=== PATIENT | male | born 1950 | race African-American/Black ===

== ENCOUNTER 2016-11-24 07:30 | Emergency (ER) | payer MEDICARE, OTHER ==
[~2016-11-24] VITALS: Ht 165.1 cm; Wt 75.0 kg
[~2016-11-24 07:30] MED LIST: ASPI81TA11 PO; CARV12.5 PO; DENO60P SQ; DILT31TA PO; DRIS50002 PO; ELVI1TAB3 PO; EPIN1INJ21 IV PUSH; EPIN1INJ21 SQ; FENO145T2 PO; FOLI1TAB4 PO; PROT40TA PO; REGL5TAB PO; RIFA150C2 PO; SEVEL800 PO; SOLU250I IV PUSH; VALA1POW PO; VANC10IN IV; XIFA550T4 PO
[2016-11-24 07:44] VITALS: BP 165/82; PULSE 67; RESP 16; TEMP 98.2; O2SAT 97
[2016-11-24] MEDS ORDERED: SODIUM CHLORIDE 0.9% FLUSH 5 ML FLUSH IVF PRN (10:00)
[2016-11-24] MEDS ORDERED: VALT1TAB PO (10:06)
[2016-11-24 10:29] VITALS: BP 149/82; PULSE 58; RESP 18; O2SAT 100
[2016-11-24 10:30] VITALS: BP 145/84
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
--- NOTE | 2016-11-24 10:55 | RADRPT ---
EXAM DATE/TIME: 11/24/2016 09:51 [facility] COMPARISON: CHEST SINGLE AP, September 15, 2016, 18:07. INDICATIONS: Chest pains. MEDICAL HISTORY: Renal insufficiency. SURGICAL HISTORY: None. ENCOUNTER: Initial ACUITY: 3 days PAIN SCORE: 1/10 LOCATION: Bilateral chest FINDINGS: Dialysis catheter is in good position. Heart is enlarged. Pulmonary vascularity is normal. No alve olar consolidation, pleural effusion or pneumothorax. CONCLUSION: 1. Dialysis catheter in good position. 2. Compensated cardiomegaly. Tera Beaulieu MD FACR on November 24, 2016 at 10:50 Board Certified Radiologist. This report was verified electronically.
--- NOTE | 2016-11-24 17:55 | EKG ---
Date Performed: 11/24/2016 Time Performed: 10:22:42 PTAGE: 65 years EKG: ATRIAL FLUTTER/TACHYCARDIA WITH SLOW VENTRICULAR RESPONSE Nonspecific ST-T wave changes ABN ORMAL ECG NO SIGNIFICANT CHANGE FROM PRIOR ELECTROCARDIOGRAM. PREVIOUS TRACING : 09/15/2016 22.45 DOCTOR: Neftaly Miranda Interpretating Date/Time 11/24/2016 17:54:19
[2016-12-06] MEDS ORDERED: CARD360C PO (09:24)
[2016-12-07] MEDS ORDERED: TYLETAB34 PO (07:21)
[2017-01-25] MEDS ORDERED: CORE25TA PO (12:00)
[2017-01-25] MEDS ORDERED: DOCU250C PO (12:09)
== END 2016-11-24 11:28 | disposition home or self-care (01) ==
LOC: NEPB 07:30
DX: T82.590A Other mechanical complication of surgically created arteriovenous fistula, initial encounter (principal); R94.31 Abnormal electrocardiogram [ECG] [EKG]; N18.6 End stage renal disease; I12.0 Hypertensive chronic kidney disease with stage 5 chronic kidney disease or end stage renal disease; E11.9 Type 2 diabetes mellitus without complications; E78.00 Pure hypercholesterolemia, unspecified; H91.93 Unspecified hearing loss, bilateral; Z99.2 Dependence on renal dialysis; Z21 Asymptomatic human immunodeficiency virus [HIV] infection status; Z87.39 Personal history of other diseases of the musculoskeletal system and connective tissue; Z87.09 Personal history of other diseases of the respiratory system; Z86.79 Personal history of other diseases of the circulatory system; Z87.19 Personal history of other diseases of the digestive system; Z86.19 Personal history of other infectious and parasitic diseases; Z86.69 Personal history of other diseases of the nervous system and sense organs
CPT/HCPCS: 71010; 93005

== ENCOUNTER → 2016-12-07 | Day surgery (SDC) | payer MEDICARE, OTHER ==
[~2016-12-07] VITALS: Ht 165.1 cm; Wt 73.3 kg
[~2016-12-07] MED LIST changes: +*RESP: ALBUTEROL 2.5 MG/3 ML NEB (PRN) PERIprocedural Use ONLY NEB ONE; +ACET-534 PO; +BUPIVACAINE/EPINEPHRINE 0.5% PF 30 ML VIAL ONE; +CARD360C PO; +CORE25TA PO; -DILT31TA PO; +DOCU100C PO; +DOCU250C PO; -EPIN1INJ21 IV PUSH; +ERGO1CAP30 PO; +FOLI1TAB6 PO; +HEPARIN SODIUM - SQ 10,000 UNITS/ML VIAL ONE; +Hemodialysis Vas Acc Cath PRN Heparin 1000 unit/ml Flush IVF; +Hemodialysis Vas Access Cath PRN NS Lock Flush IVF; +INSULIN HUMAN REGULAR 1,000 UNITS/10 ML VIAL SQ PRN; +KETAMINE HCL 500 MG/5 ML VIAL ONE; +LACTATED RINGER'S 1000 ML IV SCH; +METOPROLOL TARTRATE 25 MG TAB PO PRN; +MIDAZOLAM HCL 2 MG/2 ML VIAL ONE; +PROPOFOL 200 MG/20 ML AMP IV ONE; +REST15CA PO; -RIFA150C2 PO; +SODIUM CHLOR 0.9% 250 ML INJ 250 ML IV ONE; +SODIUM CHLORID 0.9% 500 ML IV SCH; +TYLETAB34 PO; -VALA1POW PO; +VALT1TAB PO; +VANCOMYCIN HCL 1000 MG VIAL ONE; +ceFAZolin 1,000 MG/NS 100 ML IV SCH; +fentaNYL CITRATE 250 MCG/5 ML AMP ONE
[2016-12-07 07:00] VITALS: BP 164/83; PULSE 57; RESP 22; TEMP 97.6; O2SAT 100
[2016-12-07 07:09] LABS: AUTOMATED NEUTROPHIL # 2.2 TH/MM3 (1.8-7.7); BASOPHIL % 1.1 % (0.0-2.0); EOSINOPHIL % 0.5 % (0.0-4.0); HEMATOCRIT 34.5 % (39.0-51.0); HEMO FLAGS DIFF FINAL; LYMPH % 20.3 % (9.0-44.0); LYMPHOCYTE # 0.7 TH/MM3 (1.0-4.8); MEAN CELL VOLUME 109.7 FL (80.0-100.0); MEAN CORPUSCULAR HEMOGLOBIN 37.6 PG (27.0-34.0); MEAN CORPUSCULAR HGB CONC 34.3 % (32.0-36.0); MONO % 14.6 % (0.0-8.0); NEUT % 63.5 % (16.0-70.0); PLATELET COUNT 100 TH/MM3 (150-450); RED BLOOD COUNT 3.15 MIL/MM3 (4.50-5.90); RED CELL DISTRIBUTION WIDTH 15.8 % (11.6-17.2); WHITE BLOOD COUNT 3.5 TH/MM3 (4.0-11.0)
[2016-12-07 07:48] LABS: BICARBONATE 23.1 MEQ/L (21.0-32.0); POTASSIUM 5.5 MEQ/L (3.5-5.1)
[2016-12-07 11:10] VITALS: BP 149/76; PULSE 55; RESP 17; TEMP 97.8; O2SAT 98
--- NOTE | 2016-12-08 06:58 | MP ---
cc: NIKKI MALIK M.D., JAMES DATE OF SURGERY December 07, 2016 PREOPERATIVE DIAGNOSIS Infected, residual segment of the PTFE graft left upper extremity - status post removal of infected A-V graft in September 2016. POSTOPERATIVE DIAGNOSIS Infected, residual segment of the PTFE graft left upper extremity - status post removal of infected A-V graft in September 2016. OPERATIVE PROCEDURE Removal of residual infected segment of PTFE graft. SURGEON Endy Blackburn MD DOPE POURER AVERY Harrison ANESTHESIA Local MAC. DESCRIPTION OF THE OPERATIVE PROCEDURE With the patient in the supine position and under IV sedation, the left arm was prepped with Betadine and draped in a sterile fashion. One gram of Ancef and 1 gram of vancomycin were administered intravenously. Following a protocol time-out, the skin and subcutaneous tissue surrounding the brachial artery to residual segment PTFE graft anastomosis infiltrated with 0.5% Marcaine with epinephrine. The old scar overlying the brachial artery to PTFE graft anastomosis was re-incised. The scar tissue was extremely dense, but the residual, infected segment of PTFE graft was gradually mobilized to the brachial artery anastomosis. The PTFE graft was excised leaving a 1-mm portion of the graft anastomosed to the artery. This 1-mm portion was closed with continuous 5-0 Prolene. Strict hemostasis was assured. Cultures were obtained. The wound was liberally irrigated with saline. Normal perfusion within the left hand was reconfirmed by easily palpable radial pulse, biphasic Doppler flow. The incision was closed by reapproximating the fascia over the artery with interrupted 4-0 Monocryl. Subcutaneous tissue was reapproximated with interrupted 4-0 Monocryl and the skin with continuous subcuticular 5-0 Monocryl, reinforced with Steri-Strips and covered with sterile gauze. Instrument, needle and sponge count correct x 2. No operative complications. The patient returned to the recovery room in stable condition having tolerated the procedure well. Stef Blackburn MD JTS/SSB /5:03 PM /6:45 AM
== END | disposition home or self-care (01) ==
LOC: HSDC 06:09
PROVIDERS: ATTEND Surgery Vascular Surgery
DX: T82.7XXA Infection and inflammatory reaction due to other cardiac and vascular devices, implants and grafts, initial encounter (principal); I12.0 Hypertensive chronic kidney disease with stage 5 chronic kidney disease or end stage renal disease; N18.6 End stage renal disease; J45.909 Unspecified asthma, uncomplicated
CPT/HCPCS: 01840; 35903; 80048; 85025; 87015; 87070; 87102; 87116; 87205; 87206; 94664; J0690; J1644; J2250; J3010; J3370; J7050; J7613

== ENCOUNTER → 2017-01-25 | Day surgery (SDC) | payer MEDICARE, OTHER ==
[~2017-01-25] MED LIST changes: -*RESP: ALBUTEROL 2.5 MG/3 ML NEB (PRN) PERIprocedural Use ONLY NEB ONE; +BUPIVACAINE/EPINEPHRINE 0.5% PF 30 ML VIAL INFIL ONE; -BUPIVACAINE/EPINEPHRINE 0.5% PF 30 ML VIAL ONE; +CHLORHEXIDINE GLUCONATE 2 % 1 PACK (2 CLOTHS) TOPICAL PRN; +DOPamine INJ PREMIX 500 ML ONE; +Hemodialysis Vas Acc Cath PRN Heparin 1000 unit/ml Flush IV FLUSH; -Hemodialysis Vas Acc Cath PRN Heparin 1000 unit/ml Flush IVF; +Hemodialysis Vas Access Cath PRN NS Lock Flush IV FLUSH; -Hemodialysis Vas Access Cath PRN NS Lock Flush IVF; +LACTATED RINGER'S 1000 ML IV PRN; -LACTATED RINGER'S 1000 ML IV SCH; +POVIDONE IODINE 5% (ANTISEPSIS KIT) 4 APPLICATIONS EACH NARE PRN; -SODIUM CHLOR 0.9% 250 ML INJ 250 ML IV ONE; +SODIUM CHLORID 0.9% 500 ML IV PRN; -SODIUM CHLORID 0.9% 500 ML IV SCH; -VANCOMYCIN HCL 1000 MG VIAL ONE; +ePHEDrine/NS 25 MG/5 ML SYR IV ONE; -fentaNYL CITRATE 250 MCG/5 ML AMP ONE
[2017-01-25 12:00] VITALS: BP 150/75; PULSE 77; RESP 16; TEMP 97.4; O2SAT 100
[2017-01-25 12:20] LABS: AUTOMATED NEUTROPHIL # 2.4 TH/MM3 (1.8-7.7); BASOPHIL % 1.1 % (0.0-2.0); EOSINOPHIL % 0.4 % (0.0-4.0); HEMATOCRIT 31.3 % (39.0-51.0); HEMO FLAGS DIFF FINAL; LYMPH % 20.9 % (9.0-44.0); LYMPHOCYTE # 0.8 TH/MM3 (1.0-4.8); MEAN CELL VOLUME 109.4 FL (80.0-100.0); MEAN CORPUSCULAR HEMOGLOBIN 37.1 PG (27.0-34.0); MEAN CORPUSCULAR HGB CONC 33.9 % (32.0-36.0); MONO % 13.4 % (0.0-8.0); NEUT % 64.2 % (16.0-70.0); PLATELET COUNT 129 TH/MM3 (150-450); RED BLOOD COUNT 2.86 MIL/MM3 (4.50-5.90); WHITE BLOOD COUNT 3.7 TH/MM3 (4.0-11.0)
[2017-01-25 12:35] LABS: BICARBONATE 22.7 MEQ/L (21.0-32.0); POTASSIUM 5.7 MEQ/L (3.5-5.1)
[2017-01-25 16:30] VITALS: BP 152/85; PULSE 56; RESP 18; TEMP 98.2; O2SAT 100
--- NOTE | 2017-01-26 07:04 | MP ---
cc: NIKKI MALIK M.D., JAMES T. M.D. DATE OF SURGERY 01/25/2017 PREOPERATIVE DIAGNOSIS Chronic kidney disease - needs permanent hemodialysis access. POSTOPERATIVE DIAGNOSIS Chronic kidney disease - needs permanent hemodialysis access. OPERATIVE PROCEDURE Right brachial brachial AV graft placement. SURGEON Stef Blackburn MD DIGITAL COLOR PRESS OPERATOR AVERY Harrison ANESTHESIA Local MAC DESCRIPTION OF THE OPERATIVE PROCEDURE With the patient in the supine position and under IV sedation, the right arm was prepped with Betadine and draped in a sterile fashion. One gram of Ancef was administered intravenously and following a protocol time-out, the skin and subcutaneous tissue along the medial supra antecubital region infiltrated with 0.5% Marcaine with epinephrine. A curvilinear 3 cm incision was performed along the medial supra antecubital region. A careful search for the basilic vein revealed complete obliteration by sclerotic venous disease (despite preoperative venous mapping suggesting a 2.5 mm, patent vein, none was present). Thus, a decision was made to proceed with prosthetic graft placement. The brachial artery was circumferentially mobilized and encircled with double loop vessel loops. Skin and subcutaneous tissue immediately distal to the axilla was infiltrated with 0.5% Marcaine with epinephrine. A 3 cm incision was performed through which the brachial vein was circumferentially isolated. The vein was occluded proximally and distally with Yasargil clips. A vertical 2 cm venotomy was performed. The vein was flushed proximally with heparinized saline. A 6 mm CenterFlex graft was spatulated on end and anastomosed end-to-side to the venotomy with continuous 6-0 Prolene. The graft was tunneled along the medial aspect of the upper extremity in a crescent shaped fashion utilizing an IMPRA tunneling device. The brachial artery was occluded proximally and distally with Yasargil clips. A vertical 5-mm arteriotomy was performed along the anterolateral surface. The arterial lumen was flushed proximally and distally with heparinized saline. An end-to-side anastomosis was accomplished between the graft and arteriotomy with continuous 6-0 Prolene. The occluding Yasargil clips were then removed reestablishing pulsatile flow within the brachial artery as well as into the PTFE graft and brachial vein. Strict hemostasis was achieved. Normal perfusion within the right hand was confirmed by robust Doppler signal right radial artery and palmar arch. Both incisions were closed with continuous subcutaneous 4-0 Monocryl, continuous subcuticular 5-0 Monocryl. Reinforced with Steri-Strips and covered with sterile gauze. Instrument, needle, sponge count correct x2. No operative complications. The patient returned to the recovery room in stable condition having tolerated the procedure well. MD KISHA Gaines/ANAND /5:28 PM /6:47 AM
[2017-01-26 17:29] LABS: BLOOD GAS VENOUS BASE EXCESS -1.6 mmol/L (-2-2); BLOOD GAS VENOUS HCO3 25 mmol/L (22-26); BLOOD GAS VENOUS O2 CONTENT 12.3 Vol % (9.0-17.0); BLOOD GAS VENOUS O2 HGB SAT 88 % (70-76); BLOOD GAS VENOUS PCO2 64 mmHg (44-48); BLOOD GAS VENOUS PO2 71 mmHg (35-40); BLOOD GAS VENOUS pH 7.22 (7.360-7.400); CRITICAL VALUE YES; OXYGEN DEVICE VENTILATOR; TEMP CORR TO 98.6
[2017-01-26 17:30] LABS: DRAW SITE CL; FIO2 50 %; STAT YES; VENT SETTINGS SEE COMMENTS
== END | disposition home or self-care (01) ==
LOC: HSDC 10:49
PROVIDERS: ATTEND Surgery Vascular Surgery
DX: N18.6 End stage renal disease (principal); I12.0 Hypertensive chronic kidney disease with stage 5 chronic kidney disease or end stage renal disease; J44.9 Chronic obstructive pulmonary disease, unspecified; J45.909 Unspecified asthma, uncomplicated
CPT/HCPCS: 01844; 36830; 80048; 85025; C1768; J0690; J1644; J2250; J3010; 82805; J1265

== ENCOUNTER 2017-01-27 11:14 | Inpatient (IN) | payer MEDICARE, OTHER ==
[~2017-01-27 11:14] MED LIST changes: -ACET-534 PO; -BUPIVACAINE/EPINEPHRINE 0.5% PF 30 ML VIAL INFIL ONE; -CARV12.5 PO; -CHLORHEXIDINE GLUCONATE 2 % 1 PACK (2 CLOTHS) TOPICAL PRN; -DOCU100C PO; -DOPamine INJ PREMIX 500 ML ONE; -ERGO1CAP30 PO; -FOLI1TAB6 PO; -HEPARIN SODIUM - SQ 10,000 UNITS/ML VIAL ONE; -Hemodialysis Vas Acc Cath PRN Heparin 1000 unit/ml Flush IV FLUSH; -Hemodialysis Vas Access Cath PRN NS Lock Flush IV FLUSH; -INSULIN HUMAN REGULAR 1,000 UNITS/10 ML VIAL SQ PRN; -KETAMINE HCL 500 MG/5 ML VIAL ONE; -LACTATED RINGER'S 1000 ML IV PRN; -METOPROLOL TARTRATE 25 MG TAB PO PRN; -MIDAZOLAM HCL 2 MG/2 ML VIAL ONE; -POVIDONE IODINE 5% (ANTISEPSIS KIT) 4 APPLICATIONS EACH NARE PRN; -PROPOFOL 200 MG/20 ML AMP IV ONE; -REST15CA PO; -SODIUM CHLORID 0.9% 500 ML IV PRN; -ceFAZolin 1,000 MG/NS 100 ML IV SCH; -ePHEDrine/NS 25 MG/5 ML SYR IV ONE
[2017-01-27 11:16] VITALS: BP 123/76; PULSE 100; RESP 16; TEMP 98.5; O2SAT 95
[2017-01-27 11:29] VITALS: O2SAT 97
[2017-01-27] MEDS ORDERED: SODIUM CHLORIDE 0.9% FLUSH 10 ML FLUSH IVF PRN (11:30)
[2017-01-27] MEDS ORDERED: SODIUM CHLORID 0.9% 500 ML INJ 500 ML IV ONE (11:30)
[2017-01-27 11:42] LABS: AUTOMATED NEUTROPHIL # 3.7 TH/MM3 (1.8-7.7); BASOPHIL % 0.6 % (0.0-2.0); HEMATOCRIT 28.3 % (39.0-51.0); HEMO FLAGS DIFF FINAL; LYMPH % 13.3 % (9.0-44.0); LYMPHOCYTE # 0.7 TH/MM3 (1.0-4.8); MEAN CELL VOLUME 109.1 FL (80.0-100.0); MEAN CORPUSCULAR HEMOGLOBIN 37.3 PG (27.0-34.0); MEAN CORPUSCULAR HGB CONC 34.2 % (32.0-36.0); MONO % 10.1 % (0.0-8.0); PLATELET COUNT 125 TH/MM3 (150-450); RED BLOOD COUNT 2.59 MIL/MM3 (4.50-5.90); RED CELL DISTRIBUTION WIDTH 15.3 % (11.6-17.2); WHITE BLOOD COUNT 4.9 TH/MM3 (4.0-11.0)
[2017-01-27 11:53] LABS: INTERNATIONAL NORMALIZED RATIO 1.7 RATIO
--- NOTE | 2017-01-27 12:03 | RADRPT ---
EXAM DATE/TIME: 01/27/2017 11:50 [facility] COMPARISON: CT BRAIN W/O CONTRAST, September 08, 2016, 18:45. INDICATIONS : Altered mental status. RADIATION DOSE: 42.93 CTDIvol (mGy) MEDICAL HISTORY : Cardiovascular disease. Chronic obstructive pulmonary disease. HIV.Hepatitis C. SURGICAL HISTORY : AV shunt. ENCOUNTER: Initial ACUITY: 1 day PAIN SCALE: Non-responsive LOCATION: cranial TECHNIQUE: Multiple contiguous axial images were obtained of the head. Using automated exposure control and adj ustment of the mA and/or kV according to patient size, radiation dose was kept as low as reasonably a chievable to obtain optimal diagnostic quality images. FINDINGS: CEREBRUM: The ventricles are normal for age. No evidence of midline shift, mass lesion, hemorrhage or acute in farction. No extra-axial fluid collections are seen. POSTERIOR FOSSA: The cerebellum and brainstem are intact. The 4th ventricle is midline. The cerebellopontine angle i s unremarkable. EXTRACRANIAL: The visualized portion of the orbits is intact. SKULL: The calvaria is intact. No evidence of skull fracture. CONCLUSION: Normal examination. Cyrus Mcnulty MD on January 27, 2017 at 12:01 Board Certified Radiologist. This report was verified electronically.
[2017-01-27] MEDS ORDERED: SODIUM CHLOR 0.9% 1000 ML INJ 1,000 ML IV PRN ×3 (12:18)
[2017-01-27 12:27] LABS: BICARBONATE 18.8 MEQ/L (21.0-32.0); POTASSIUM 6.2 MEQ/L (3.5-5.1)
--- NOTE | 2017-01-27 12:27 | PD ---
HPI Chief Complaint: Neuro Symptoms/ Deficits Time Seen by Provider: 11:22 Travel History International Travel<30 days: No Contact w/Intl Traveler<30days: No Traveled to known affect area: No History of Present Illness HPI 66-year-old male came to the emergency room brought by his sister with history of sudden onset generalized weakness after a fall at 8:00 this morning. Sister is here who is giving the elaborate history. As per her patient woke up at 7: 30 and was at his baseline mental status and health. Normally he is slow when walking and talking. He has multiple medical issues including end-stage renal disease, hemodialysis and cardiac history. He is supposed to get his hemodialysis today. He was sitting and she was getting ready to make breakfast for him when she saw him fall backward on the floor. She went and helped to mop. But since then he was walking slow and talking slow. She thought that his right sided facial droop was more exaggerated than usual. She decided to drive him to the emergency room when it did not improve. Here the patient was awake and slowly answering questions. He is following commands. But I had to ask a single question multiple times in order to get an answer out of him. Denies any pain. Patient is in atrial fibrillation on the monitor. As per the sister this is a known A. fib and he is only on one baby aspirin 3 times a week as per his pearl digger. [facility] Past Medical History Narrative Medical List of his past medical, surgical, social and family history was reviewed from the nursing note. ADHD: No Arthritis: Yes (SPINAL ) Asthma: Yes Autoimmune Disease: Yes Blood Disorders: Yes (HIV) Anxiety: No Depression: No Heart Rhythm Problems: No Cancer: No Cardiovascular Problems: Yes High Cholesterol: Yes Chemotherapy: No Chest Pain: No Congestive Heart Failure: Yes COPD: Yes Cerebrovascular Accident: No Diabetes: Yes Patient Takes Glucophage: No Dialysis: Yes (,,) Diminished Hearing: Yes (BILATERAL) Endocrine: Yes Gastrointestinal Disorders: Yes (constipation) GERD: Yes Glaucoma: No Genitourinary: Yes (ESRD, DIALYSIS --TUE) Headaches: Yes Hepatitis: Yes (HEP C) Hiatal Hernia: No Hypertension: Yes Immune Disorder: Yes (HIV POSITIVE) Implanted Vascular Access Dvce: Yes Kidney Stones: No Musculoskeletal: Yes Neurologic: Yes (AMS AFTER DIALYSIS ) Psychiatric: No Respiratory: Yes (ASTHMA) Immunizations Current: Yes Migraines: No Myocardial Infarction: No Radiation Therapy: No Renal Failure: Yes (ESRD) Seizures: No Sickle Cell Disease: No Sleep Apnea: No Thyroid Disease: No Ulcer: No Past Surgical History Abdominal Surgery: No AICD: No Appendectomy: No Arteriovenous Shunt: Yes (LUE AV GRAFT) Body Medical Devices: LEFT ARM DIALYSIS FISTULA, L VAS CATH CHEST Cardiac Surgery: No Cholecystectomy: No Ear Surgery: No Endocrine Surgery: No Eye Surgery: No Genitourinary Surgery: No Gynecologic Surgery: No Insulin Pump: No Joint Replacement: No Neurologic Surgery: No Oral Surgery: No Pacemaker: No Thoracic Surgery: No Other Surgery: Yes (LUE AV GRAFT; X 6) Social History Alcohol Use: No Tobacco Use: No Substance Use: No Allergies-Medications (Allergen,Severity, Reaction): Coded Allergies: *MDRO Multi-Drug Resistant Organism (Unverified Adverse Reaction, Unknown , 01/25/17) MRSA (genital) - 2004 MRSA PCR screen positive - 12/29/15, 09/09/16 MRSA (blood-09/08/16) Comments List of his allergies reviewed from the nursing note. Reported Meds & Prescriptions Reported Meds & Active Scripts Active Renvela (Sevelamer Carbonate) 800 Mg Tab 1,600 Mg PO TID Xifaxan (Rifaximin) 550 Mg Tab 550 Mg PO BID Epinephrine Inj 1 Mg/Ml Inj 0.3 Mg SQ ONCE PRN Give with any signs of respiratory distress. Solu-Cortef Inj (Hydrocortisone Sodium Succinate) 250 Mg Inj 250 Mg IV PUSH ONCE PRN Give over 30-60 seconds. Vancomycin Inj (Vancomycin HCl) 10 Gm Inj 1,500 Mg IV WITH DIALYSIS 30 Days Reported Restoril (Temazepam) 15 Mg Cap 15 Mg PO HS PRN Fenofibrate 145 Mg Tab 145 Mg PO HS Aspirin EC (Aspirin) 81 Mg Tabdr 81 Mg PO MOWEFR @ HS Docusate Sodium 100 Mg Cap 100 Mg PO WEEKLY ON SUNDAYS Coreg (Carvedilol) 25 Mg Tab 25 Mg PO Q12HR Tylenol-Codeine #3 (Acetaminophen-Codeine) 300-30 mg Tab 1 Tab PO Q4H PRN Cardizem CD 24 HR (Diltiazem CD 24 HR) 360 Mg Caper 360 Mg PO DAILY Valtrex (Valacyclovir HCl) 1 Gm Tab 1 Gm PO DAILY Prolia Inj (Denosumab) 60 Mg/Ml Inj 60 Mg SQ Q180D Genvoya (Yxtfhvklxmgm-Orjsoslitu-Cpoxqrwcupkq-Tenofvir) [phone] Mg Tab 1 Tab PO DAILY Folate (Folic Acid) 1 Mg Tab 1 Mg PO DAILY Drisdol (Ergocalciferol) 50,000 Unit Cap 50,000 Units PO Q7D ON SUNDAYS Protonix (Pantoprazole Sodium) 40 Mg Tab 40 Mg PO DAILY Narrative Medication List of his home medications reviewed from the nursing note. Review of Systems Except as stated in HPI: all other systems reviewed are Neg Physical Exam Narrative GENERAL: Awake, no obvious distress, slow in answering questions SKIN: Focused skin assessment warm/dry. HEAD: Atraumatic. Normocephalic. EYES: Pupils equal and round. No scleral icterus. No injection or drainage. ENT: No nasal bleeding or discharge. Mucous membranes pink and moist. NECK: Trachea midline. No JVD. CARDIOVASCULAR: Regular rate and rhythm. No murmur appreciated. RESPIRATORY: No accessory muscle use. Clear to auscultation. Breath sounds equal bilaterally. GASTROINTESTINAL: Abdomen soft, non-tender, nondistended. Hepatic and splenic margins not palpable. MUSCULOSKELETAL: No obvious deformities. No clubbing. No cyanosis. No edema. NEUROLOGICAL: Awake and slow in answering questions. No obvious cranial nerve deficits. Bilateral upper extremity strength of 4 out of 5, bilateral lower extremity strength of 3 out of 5. Speech is somewhat dysarthric due to the absence of his teeth. PSYCHIATRIC: Appropriate mood and affect; insight and judgment normal. Data Data Last Documented VS Orders Electrocardiogram (01/27/17 11:) Prothrombin Time / Inr (Pt) (01/27/17 11:22) Complete Blood Count With Diff (01/27/17 11:22) Basic Metabolic Panel (Bmp) (01/27/17 11:22) Troponin I (01/27/17 11:22) Ct Brain W/O Iv Contrast(Rout) (01/27/17 11:22) Chest, Single Ap (01/27/17 11:22) Ecg Monitoring (01/27/17 11:22) Iv Access Insert/Monitor (01/27/17 11:22) Oximetry (01/27/17 11:22) Sodium Chloride 0.9% Flush (Ns Flush) (01/27/17 11:30) Sodium Chlorid 0.9% 500 Ml Inj (Ns 500 M (01/27/17 11:30) Mri Brain W/O Contrast (01/27/17 11:44) ^ Blood Flow Rate (01/27/17 12:18) ^ Dialysate Flow Rate (01/27/17 12:18) ^ Dialyzer (01/27/17 12:18) ^ Concentrate (01/27/17 12:18) ^ Acid Concentrate (01/27/17 12:18) ^ Length Of Dialysis (01/27/17 12:18) ^ Frequency Of Dialysis (01/27/17 12:18) ^ Dialysis Obtain (01/27/17:18) ^ Needle Size (01/27/17:18) ^ Dialysis Schedule (01/27/17 12:18) Resp Oxygen Zia C Titrat 1-4 L (01/27/17 ) ^ Dialysis Weight (01/27/17 12:18) ^ Obtain As Needed (01/27/17 12:18) Sodium Chlor 0.9% 1000 Ml Inj (Ns 1000 M (01/27/17 12:18) Heparin Inj (Heparin Inj) (01/27/17 12:30) Sodium Chlor 0.9% 1000 Ml Inj (Ns 1000 M (01/27/17 12:18) Sodium Chlor 0.9% 1000 Ml Inj (Ns 1000 M (01/27/17 12:18) Mannitol Inj (Mannitol Inj) (01/27/17 12:30) Albumin 25% Inj (Albumin 25% Inj) (01/27/17 12:30) Sodium Chloride 0.9% Flush (Ns Flush) (01/27/17 12:30) Heparin Inj (Heparin Inj) (01/27/17 12:30) Gentamicin (Dialysis) Inj (Gentamicin (D (01/27/17 12:30) Ondansetron Inj (Zofran Inj) (01/27/17 12:30) Acetaminophen (Tylenol) (01/27/17 12:30) Diphenhydramine (Benadryl) (01/27/17 12:30) Nitroglycerin Sl (Nitrostat Sl) (01/27/17 12:30) Clonidine (Catapres) (01/27/17 12:30) Epoetin Erick Inj (Epogen Inj) (01/27/17 12:30) Gelatin 12 Mm/7 Mm Top (Gelfoam 12 Mm/7 (01/27/17 12:30) Apixaban (Eliquis) (01/27/17 13:15) Consult Neurology (01/27/17 ) Admit Order (Ed Use Only) (01/27/17 13:22) Labs MDM Medical Decision Making Medical Screen Exam Complete: Yes Emergency Medical Condition: Yes Medical Record Reviewed: Yes Interpretation(s) Twelve-lead EKG was reviewed by me. Atrial fibrillation with flutter, normal axis, heart rate of 80 bpm. Differential Diagnosis CVA, TIA, intracranial bleed, electrolyte abnormality Narrative Course 12:25 PM awaiting for the chemistry to be done and resulted. I discussed the case with Dr. Ortiz from neurology. Given the absence of any focal findings I did not call a stroke alert. However given the fact that patient has atrial fibrillation he wanted a stat MRI and if that was negative for bleed he wanted the patient to be started on a course. A CT scan of the head has been done. Awaiting for the MRI currently. I also spoke with Dr. Arboleda since he is covering for patient's peer support specialist. I let him know that the patient is here and will be admitted and if he could coordinate the hemodialysis. Plain CT of the head is back in its within normal limits. I tried calling MRI and I was told that they had just received the history and they will try to get him as soon as they can. 1:14 PM MRI and CAT scan both are negative for any hemorrhage. I have ordered the first dose of Eliquis. Awaiting for the hospitalist to call back so that I can admit this patient. He has been taken for dialysis since his potassium was 6.2. The dialysis nurse was here and she said that the patient hadn't had dialysis since last Tuesday. Procedures EKG Prior to Arrival: No Physician Communication Physician Communication Dr. Ortiz, Dr. Arboleda Diagnosis Primary Impression: TIA (transient ischemic attack) Qualified Code: G45.9 - Transient cerebral ischemia, unspecified type Additional Impressions: Hyperkalemia Atrial fibrillation Qualified Code: I48.2 - Chronic atrial fibrillation End stage renal disease Dependent on hemodialysis Admitting Information Admitting Physician Requests: Observation Shari Meeks MD Jan 27, 2017 12:27 Monocytes # (Auto) 0.5 TH/MM3 Eosinophils # (Auto) 0.0 TH/MM3 Basophils # (Auto) 0.0 TH/MM3 CBC Comment DIFF FINAL Differential Comment Prothrombin Time 19.0 SEC Prothromb Time International 1.7 RATIO Ratio Sodium Level 131 MEQ/L Potassium Level 6.2 MEQ/L Chloride Level 97 MEQ/L Carbon Dioxide Level 18.8 MEQ/L Anion Gap 15 MEQ/L Blood Urea Nitrogen 96 MG/DL Creatinine 13.33 MG/DL Estimat Glomerular Filtration 5 ML/MIN Rate Random Glucose 109 MG/DL Calcium Level 7.9 MG/DL Troponin I 0.05 NG/ML [facility] Medical Decision Making Medical Screen Exam Complete: Yes Emergency Medical Condition: Yes Medical Record Reviewed: Yes Interpretation(s) Twelve-lead EKG was reviewed by me. Atrial fibrillation with flutter, normal axis, heart rate of 80 bpm. Differential Diagnosis CVA, TIA, intracranial bleed, electrolyte abnormality Narrative Course 12:25 PM awaiting for the chemistry to be done and resulted. I discussed the case with Dr. Ortiz from neurology. Given the absence of any focal findings I did not call a stroke alert. However given the fact that patient has atrial fibrillation he wanted a stat MRI and if that was negative for bleed he wanted the patient to be started on a course. A CT scan of the head has been done. Awaiting for the MRI currently. I also spoke with Dr. Andi abbott since he is covering for patient's peer support specialist. I let him know that the patient is here and will be admitted and if he could coordinate the hemodialysis. Plain CT of the head is back in its within normal limits. I tried calling MRI and I was told that they had just received the history and they will try to get him as soon as they can. 1:14 PM MRI and CAT scan both are negative for any hemorrhage. I have ordered the first dose of Eliquis. Awaiting for the hospitalist to call back so that I can admit this patient. He has been taken for dialysis since his potassium was 6.2. The dialysis nurse was here and she said that the patient hadn't had dialysis since last Tuesday. Procedures EKG Prior to Arrival: No Physician Communication Physician Communication Dr. Ortiz, Dr. Arboleda Diagnosis Primary Impression: TIA (transient ischemic attack) Qualified Code: G45.9 - Transient cerebral ischemia, unspecified type Additional Impressions: Hyperkalemia Atrial fibrillation Qualified Code: I48.2 - Chronic atrial fibrillation End stage renal disease Dependent on hemodialysis Admitting Information Admitting Physician Requests: Shari Barraza MD Jan 27, 2017 12:27
[2017-01-27] MEDS ORDERED: NITROGLYCERIN 0.4 MG SL 25 TABS/BTL SL PRN (12:30)
[2017-01-27] MEDS ORDERED: MANNITOL 12.5 GM/50 ML VIAL IV PRN (12:30)
[2017-01-27] MEDS ORDERED: HEPARIN SODIUM - IV 10,000 UNITS/10 ML VIAL IVF PRN (12:30)
[2017-01-27] MEDS ORDERED: ONDANSETRON HCL 4 MG/2 ML VIAL IV PRN (12:30)
[2017-01-27] MEDS ORDERED: ALBUMIN HUMAN 25% 25 GM/100 ML BAGP IV PRN (12:30)
[2017-01-27] MEDS ORDERED: EPOETIN ALFA 10,000 UNITS/ML VIAL IV PRN (12:30)
[2017-01-27] MEDS ORDERED: HEPARIN SODIUM - IV 10,000 UNITS/10 ML VIAL PRN (12:30)
[2017-01-27] MEDS ORDERED: diphenhydrAMINE HCL 25 MG CAP PO PRN (12:30)
[2017-01-27] MEDS ORDERED: GENTAMICIN SULFATE (DIALYSIS USE ONLY) 20 MG/2 ML VIAL IV PRN (12:30)
[2017-01-27] MEDS ORDERED: SODIUM CHLORIDE 0.9% FLUSH 10 ML FLUSH IV FLUSH PRN ×2 (12:30→13:45)
[2017-01-27] MEDS ORDERED: GELATIN 12 MM/7 MM FOAM TOP PRN (12:30)
--- NOTE | 2017-01-27 13:03 | RADRPT ---
EXAM DATE/TIME: 01/27/2017 12:02 [facility] COMPARISON: CHEST SINGLE AP, November 24, 2016, 9:51. INDICATIONS : Syncope, increased confusion. MEDICAL HISTORY : Hypertension. Chronic obstructive pulmonary disease. Diabetes mellitus type II. Congestive heart failure. Asthma. SURGICAL HISTORY : Vas cath. ENCOUNTER: Initial ACUITY: 2 days PAIN SCORE: 0/10 LOCATION: Bilateral chest FINDINGS: A single AP supine portable view of the chest was obtained and again demonstrates the right-sided diamante ble lumen central venous line. The heart size is mildly prominent with no perihilar edema. There are no confluent infiltrates or effusions. The bony thorax is intact. There are multiple overlying electr ocardiogram leads. CONCLUSION: Mild cardiomegaly with no acute cardiopulmonary disease. Alden Elder MD on January 27, 2017 at 13:01 Board Certified Radiologist. This report was verified electronically.
--- NOTE | 2017-01-27 13:09 | RADRPT ---
EXAM DATE/TIME: 01/27/2017 12:36 [facility] COMPARISON: MRI BRAIN W/O CONTRAST, September 08, 2016, 21:42. INDICATIONS : CVA. Slurred speech and drooling. MEDICAL HISTORY : Diabetes mellitus type 2. Hypertension. Dialysis. SURGICAL HISTORY : Dialysis port. ENCOUNTER: Initial ACUITY: 1 day PAIN SCORE: Nonresponsive. LOCATION: Head. Known MRI PrecautionsSedation Utilized? No Anesthesia Present? MRI reaction? If YES expla in: TECHNIQUE: Multiplanar, multisequence MRI of the brain was performed without contrast. FINDINGS: CEREBRUM: The ventricles are normal for age. No evidence of midline shift, mass lesion, hemorrhage or acute in farction. No extraaxial fluid collections are seen. The pituitary gland and suprasellar cistern are normal in configuration. WHITE MATTER: On the flair weighted images there is increased signal again noted throughout the periventricular whi te matter. POSTERIOR FOSSA: The cerebellum and brainstem are intact. The 4th ventricle is midline. The cerebellopontine angle is unremarkable. The cerebellar tonsils are normal in position. DIFFUSION IMAGING: No focal areas of restricted diffusion are seen. No evidence of acute infarction. EXTRACRANIAL: The visualized portions of the orbits and paranasal sinuses are unremarkable. CONCLUSION: 1. No acute hemorrhage, infarction or mass effect. 2. Atrophy and chronic small vessel ischemic change again noted. Alden Elder MD on January 27, 2017 at 13:05 Board Certified Radiologist. This report was verified electronically.
[2017-01-27] MEDS ORDERED: APIXABAN 5 MG TABLET PO ONE (13:15)
[2017-01-27] MEDS ORDERED: NALOXONE HCL 0.4 MG/ML AMP IV PRN (13:45)
--- NOTE | 2017-01-27 14:50 | EKG ---
Date Performed: 01/27/2017 Time Performed: 11:28:12 PTAGE: 66 years EKG: ATRIAL FIB/FLUTTER NONSPECIFIC T-WAVE ABNORMALITY ABNORMAL ECG NO PREVIOUS TRACING DOCTOR: John Valdes Interpretating Date/Time 01/27/2017 14:49:33
--- NOTE | 2017-01-27 16:54 | PD.CONS ---
HPI Service Nephrology Consult Requested By Reason for Consult ESRD, hyperkalemia Primary Care Physician Tera Silva, DO History of Present Illness Mr. Barroso was admitted with altered mental status. He appears to have missed dialysis on Tuesday. He was hyperkalemic on presentation, and emergency dialysis was arranged, and I saw him during dialysis. Currently he is confused, disoriented, unable to provide me with history. He is in atrial fibrillation. I discussed with neurology. Patient has multiple medical problems including HIV, ESRD, Hypertension, recent AV graft infection, s/p resection. Review of Systems ROS Limitations: Clinical Condition Past Family Social History Allergies: Coded Allergies: *MDRO Multi-Drug Resistant Organism (Unverified Adverse Reaction, Unknown , 01/25/17) MRSA (genital) - 2004 MRSA PCR screen positive - 12/29/15, 09/09/16 MRSA (blood-09/08/16) Past Medical History HIV ESRD Hypertension Secondary hyperparathyroidism Anemia AV graft infection, s/p resection. Pneumonia Chronic constipation. Reported Medications Renvela (Sevelamer Carbonate) 800 Mg Tab 1,600 Mg PO TID Xifaxan (Rifaximin) 550 Mg Tab 550 Mg PO BID Fenofibrate 145 Mg Tab 145 Mg PO DAILY Aspirin EC (Aspirin) 81 Mg Tabdr 81 Mg PO MOWEFR@0900 Epinephrine Inj 1 Mg/Ml Inj 0.3 Mg SQ ONCE PRN Give with any signs of respiratory distress. Solu-Cortef Inj (Hydrocortisone Sodium Succinate) 250 Mg Inj 250 Mg IV PUSH ONCE PRN Give over 30-60 seconds. Vancomycin Inj (Vancomycin HCl) 10 Gm Inj 1,500 Mg IV WITH DIALYSIS 30 Days Reported Docusate Sodium 250 Mg Cap 250 Mg PO DAILY Coreg (Carvedilol) 25 Mg Tab 25 Mg PO BID Tylenol-Codeine #3 (Acetaminophen-Codeine) 300-30 mg Tab 1 Tab PO Q4H PRN Cardizem CD 24 HR (Diltiazem CD 24 HR) 360 Mg Caper 360 Mg PO DAILY Valtrex (Valacyclovir HCl) 1 Gm Tab 1 Gm PO BID Prolia Inj (Denosumab) 60 Mg/Ml Inj 60 Mg SQ Q180D Genvoya (Mpkwvgvdvvxf-Sxydkywcip-Qloqjduxuujj-Tenofvir) [phone] Mg Tab 1 Tab PO DAILY Folate (Folic Acid) 1 Mg Tab 1 Mg PO DAILY Drisdol (Ergocalciferol) 50,000 Unit Cap 50,000 Units PO Q7D Reglan (Metoclopramide HCl) 5 Mg Tab 5 Mg PO TIDAC Protonix (Pantoprazole Sodium) 40 Mg Tab 40 Mg PO DAILY Active Ordered Medications Current Medications Medications (Trade) Dose Ordered Sig/Michael Route Start Time Stop Time Status Last Admin Sodium Chloride 2 ml 2 ml UNSCH PRN IVF 01/27/17 11:30 (NS 1000 ml Inj) 1,000 ml @ 0 mls/hr Q0M PRN IV 01/27/17 12:18 Heparin Sodium (Porcine) 8000 units 8,000 units UNSCH PRN IVF 01/27/17 12:30 Sodium Chloride 1,000 ml @ 200 mls/hr Q5H PRN IV 01/27/17 12:18 (NS 1000 ml Inj) 1,000 ml @ 0 mls/hr Q0M PRN IV 01/27/17 12:18 (Mannitol Inj) 12.5 gm UNSCH PRN IV 01/27/17 12:30 (Albumin 25% Inj) 25 gm UNSCH PRN IV 01/27/17 12:30 (NS Flush) 5 ml UNSCH PRN IV FLUSH 01/27/17 12:30 (Heparin Inj) UNSCH PRN .XX 01/27/17 12:30 (Gentamicin (Dialysis) Inj) 20 mg UNSCH PRN IV 01/27/17 12:30 (Zofran Inj) 4 mg UNSCH PRN IV 01/27/17 12:30 (Tylenol) 650 mg UNSCH PRN PO 01/27/17 12:30 (Benadryl) 25 mg UNSCH PRN PO 01/27/17 12:30 (Nitrostat Sl) 0.4 mg UNSCH PRN SL 01/27/17 12:30 (Catapres) 0.1 mg UNSCH PRN PO 01/27/17 12:30 (Epogen Inj) 10,000 units UNSCH PRN IV 01/27/17 12:30 (Gelfoam 12 Mm/7 Mm Top) 1 foam UNSCH PRN TOP 01/27/17 12:30 (Narcan Inj) 0.4 mg UNSCH PRN IV 01/27/17 13:45 Family History reviewed, non contributory Social History no current tobacco, or ETOH Physical Exam Vital Signs Vital Signs Date Time Temp Pulse Resp B/P Pulse Ox O2 Delivery O2 Flow Rate FiO2 01/27/17 11:29 97 Room Air 01/27/17 11:20 90 18 99 Room Air 01/27/17 11:16 98.5 100 16 123/76 95 Physical Exam GENERAL: generalized muscle wasting, patient is poorly responsive. SKIN: Warm and dry. HEAD: Normocephalic. EYES: No scleral icterus. No injection or drainage. NECK: Supple, trachea midline. No JVD or lymphadenopathy. CARDIOVASCULAR: irregular tachycardia. RESPIRATORY: Breath sounds equal bilaterally. No accessory muscle use. GASTROINTESTINAL: Abdomen soft, non-tender, nondistended. MUSCULOSKELETAL: No cyanosis, or edema. BACK: Nontender without obvious deformity. No CVA tenderness. Laboratory Laboratory Tests Test 01/27/17 11:30 White Blood Count 4.9 Red Blood Count 2.59 Hemoglobin 9.7 Hematocrit 28.3 Mean Corpuscular Volume 109.1 Mean Corpuscular Hemoglobin 37.3 Mean Corpuscular Hemoglobin 34.2 Concent Red Cell Distribution Width 15.3 Platelet Count 125 Mean Platelet Volume 8.1 Neutrophils (%) (Auto) 76.0 Lymphocytes (%) (Auto) 13.3 Monocytes (%) (Auto) 10.1 Eosinophils (%) (Auto) 0.0 Basophils (%) (Auto) 0.6 Neutrophils # (Auto) 3.7 Lymphocytes # (Auto) 0.7 Monocytes # (Auto) 0.5 Eosinophils # (Auto) 0.0 Basophils # (Auto) 0.0 CBC Comment DIFF FINAL Differential Comment Prothrombin Time 19.0 Prothromb Time International 1.7 Ratio Sodium Level 131 Potassium Level 6.2 Chloride Level 97 Carbon Dioxide Level 18.8 Anion Gap 15 Blood Urea Nitrogen 96 Creatinine 13.33 Estimat Glomerular Filtration 5 Rate Random Glucose 109 Calcium Level 7.9 Troponin I 0.05 Result Diagram: 01/27/17 1130 01/27/17 1130 Assessment and Plan Problem List: (1) ESRD (end stage renal disease) Plan: he apparently missed dialysis treatment earlier this week, he appears to have volume overload, we are dialyzing him today, he is on 1k, BFR 350 ml/min, UF goal is 4 liters. Continue to monitor volume status and electrolytes. Avoid Gadolinium. (2) Hyperkalemia Plan: Dialysis. If NPO, consider placing him on D10 at 20 ml/hour. (3) HIV disease Plan: Continue anti retrovirals. (4) Anemia Plan: Epogen with dialysis. (5) Atrial fibrillation Plan: rate control measures. TIA being considered. Eliquis can be given if deemed necessary. Assessment and Plan Thanks for the consult. We will follow. Will discuss with dialysis unit regarding recent work on his AVF. Problem Qualifiers (1) Atrial fibrillation: Qualified Code: I48.2 - Chronic atrial fibrillation Tyson Arboleda MD Jan 27, 2017 16:54
[2017-01-27] MEDS ORDERED: DOCU100C PO (17:20)
[2017-01-27] MEDS ORDERED: ASPI81TA11 PO (17:22)
[2017-01-27] MEDS ORDERED: FENO145T2 PO (17:23)
[2017-01-27] MEDS ORDERED: REST15CA PO (17:24)
[2017-01-27 17:40] VITALS: BP 126/83; PULSE 113; RESP 20; TEMP 96.1; O2SAT 98
[2017-01-27] MEDS: SEVELAMER CARBONATE 800 MG TAB PO SCH (18:00)
[2017-01-27] MEDS ORDERED: PILL SPLITTER OTHER PRN (18:15)
--- NOTE | 2017-01-27 18:20 | MB ---
cc: ELIA LOPEZ DATE OF CONSULTATION 01/27/17 HISTORY OF PRESENT ILLNESS The patient is a 65-year-old man with a history of hypertension, diabetes, dialysis, confusion, fevers who I had seen back in December of 2015 with ejection fraction of 60-65%, sepsis, change in mental status, hepatitis C, HIV 23 years ago on retroviral therapy, drug abuse, hyperlipidemia, renal failure, COPD, AV fistula, low blood pressure in the past, had two episodes of unresponsive at that time. He gave a fair history then. Herpes PCR had been negative in the CSF. RPR had been negative as was VDRL in the past. B12 and thyroid were fine at that time, creatinine was 6.8. MRI just showed atrophy. It was unclear if he had atrial fibrillation at that time. Nevertheless, he came in to the emergency room today seen by Dr. Meeks, sudden onset of generalized weakness after a fall at eight this morning. Sister thought she saw a bit of a facial droop. He was talking and moving slower than usual. He fell backwards. She thought he had a right-sided facial droop. He was in atrial fibrillation on the monitor. Evidently, he had a known history of atrial fibrillation and takes an aspirin three times a week. MEDICATIONS At home 1. Renvela. 2. Rifaximin 3. Fenofibrate 81 three times a week 4. Some steroids as needed. 5. Vancomycin with dialysis. 6. Docusate 7. Coreg. 8. Tylenol with Codeine. 9. Cardizem. 10. Valtrex 11. ____ injections 12. 13. Folate 14. 15. Reglan. 16. Protonix PHYSICAL EXAMINATION VITAL SIGNS: 130 systolic, afebrile, 16, 123/76 90-56. NECK: There were no carotid bruits. HEART: Regular rhythm at this time. No murmur was noted. NEUROLOGIC: Pupils are equally. Visual denny are full. Face is symmetric. He has had normal strength in upper and lower extremities bilaterally. Toes are downgoing bilaterally. DTRs are absent throughout. He is slow to answer and perseverates somewhat. He can follow commands really well, but then I ask him a question and he seems not to answer or very slow to answer. LABORATORY DATA Sodium is 131, BUN 96, creatinine is 13, 96 for BUN is more than it usually is in quite some time since 2014. The creatinine 10. Last time it was that was in December of last year. His potassium was 6.2. Ammonia level has been slightly elevated in the past. Troponin is negative here. IMPRESSION Some metabolic encephalopathy, possibly a TIA. I did talk with Dr. Meeks and we ordered Eliquis. It is unclear to me if he actually got a dose yet. The MRI of the brain was done and that does not show any infarcts. There is some diffuse atrophy, some white matter changes and I would recommend going ahead and giving the Eliquis if it has not been given. We will also check an EEG on him, carotid ultrasound and an echocardiogram. MD JOSE ENRIQUE [place]/ /4:00 PM /6:02 PM
[2017-01-27 19:07] VITALS: PULSE 109
[2017-01-27] MEDS ORDERED: DEXTROSE 10% INJ 1,000 ML IV SCH (19:15)
--- NOTE | 2017-01-27 19:15 | HHI.HP ---
HPI [facility] Primary Care Physician Tera Silva, DO Admission Diagnosis TIA, hyperkalemia, atrial fibrillation Diagnoses: Chief Complaint: confused Travel History International Travel<30 Days: No Contact w/Intl Traveler <30 Da: No Traveled to Known Affected Are: No History of Present Illness This is a 65 year old black male with significant past medical history of COPD, ESRD, CHF, HIV, substance abuse. Previous admissions for sepsis, most recently he was in hospital for infected right AV graft that required removal and IV antibiotics. He underwent removal of residual graft to the left upper extremity 12/07/2016. After that he underwent right AV graft placement on 2016. Patient was brought into the hospital because of sudden onset of generalized weakness after he had a fall this morning. At this time, information is obtained from review of medical record, sister is no longer at the bedside. Patient is altered and unable to provide any information. Per review of records, patient woke up at 7:30 and was at his baseline. Patient's baseline is that he is slow to respond when walking and talking. Apparently she observed the patient fall backwards on the floor and when she went to help him out he was walking very slowly and also noted right-sided facial droop that was more exaggerated than usual. Apparently the patient's last dialysis treatment was on Tuesday, he has missed 2 treatments. 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 Mays. He is on beta blockers and takes aspirin 3 times a week per cardiology recommendations. Because of risk of bleeding and complications from his multiple comorbidities, no anticoagulation was recommended time as he had bleeding from right arm graft. Patient was evaluated in the emergency room, case was discussed with Dr. Ortiz from neurology. The patient was noted without any local findings, no stroke alert was called. A stat CT of the head was done that was negative. It was also recommended by neurology for the patient to receive Eliquis however he has not received it. At this time the patient is lethargic and not awake enough to take any oral medications. A brain MRI was done and this was also negative. Was noted hypokalemic, potassium was 6.2. The rest of the laboratory workup was essentially unremarkable except for his renal indices. INR is 1.7. Patient was taken to the dialysis unit where he underwent treatment. At this time, patient is evaluated. He does wake To voice and is able to provide the name of the hospital. He is very slow to respond and there is no focal symptoms noted. Complaints of back pain but otherwise denies any chest pain, no shortness of breath. Right arm is noted with some edema and surgical site from recent AV graft placement is intact. Patient is admitted for further evaluation and treatment. Review of Systems ROS Limitations: Altered Mental Status Past Family Social History Past Medical History End-stage renal disease on hemodialysis, HIV positive for 23 years on his antiretroviral therapy, hepatitis C, arthritis, drug abuse, hyperlipidemia, CHF , COPD wears 3 L nasal cannula at home, heart of hearing, sepsis Atrial fibrillation, infected left upper extremity graft that required removal and IV antibiotics, MRSA infection to graft Past Surgical History AV graft placement S/P partial removal left AVG on 09/17 status post removal of residual graft 12/07/2016 Right AV graft placement for Permacath placed 09/22 Reported Medications Reported Meds & Active Scripts Active Renvela (Sevelamer Carbonate) 800 Mg Tab 1,600 Mg PO TID Xifaxan (Rifaximin) 550 Mg Tab 550 Mg PO BID Epinephrine Inj 1 Mg/Ml Inj 0.3 Mg SQ ONCE PRN Give with any signs of respiratory distress. Solu-Cortef Inj (Hydrocortisone Sodium Succinate) 250 Mg Inj 250 Mg IV PUSH ONCE PRN Give over 30-60 seconds. Vancomycin Inj (Vancomycin HCl) 10 Gm Inj 1,500 Mg IV WITH DIALYSIS 30 Days Reported Restoril (Temazepam) 15 Mg Cap 15 Mg PO HS PRN Fenofibrate 145 Mg Tab 145 Mg PO HS Aspirin EC (Aspirin) 81 Mg Tabdr 81 Mg PO MOWEFR @ HS Docusate Sodium 100 Mg Cap 100 Mg PO WEEKLY Coreg (Carvedilol) 25 Mg Tab 25 Mg PO Q12HR Tylenol-Codeine #3 (Acetaminophen-Codeine) 300-30 mg Tab 1 Tab PO Q4H PRN Cardizem CD 24 HR (Diltiazem CD 24 HR) 360 Mg Caper 360 Mg PO DAILY Valtrex (Valacyclovir HCl) 1 Gm Tab 1 Gm PO DAILY Prolia Inj (Denosumab) 60 Mg/Ml Inj 60 Mg SQ Q180D Genvoya (Avafvdmgjupp-Wakpuuztcs-Htddwffqyxxc-Tenofvir) [phone] Mg Tab 1 Tab PO DAILY Folate (Folic Acid) 1 Mg Tab 1 Mg PO DAILY Drisdol (Ergocalciferol) 50,000 Unit Cap 50,000 Units PO Q7D Reglan (Metoclopramide HCl) 5 Mg Tab 5 Mg PO TIDAC Protonix (Pantoprazole Sodium) 40 Mg Tab 40 Mg PO DAILY Allergies: Coded Allergies: *MDRO Multi-Drug Resistant Organism (Unverified Adverse Reaction, Unknown , 01/25/17) MRSA (genital) - 2004 MRSA PCR screen positive - 12/29/15, 09/09/16 MRSA (blood-09/08/16) Active Ordered Medications Inpatient Medications Acetaminophen (Tylenol) 650 mg UNSCH PRN PO for headach, pain, temp > 101F; Start 01/27/17 at 12:30 Albumin Human (Albumin 25% Inj) 25 gm UNSCH PRN IV WITH DIALYSIS; Start at 12:30 Apixaban (Eliquis) 5 mg ONCE ONCE PO ; Start 01/27/17 at 13:15; Stop 01/27/17 at 13:16; Status DC Aspirin (Ecotrin Ec) 81 mg DAILY PO ; Start 01/28/17 at 09:00 Clonidine (Catapres) 0.1 mg UNSCH PRN PO for BP > 180/100 X 2 readings; Start 01/27/17 at 12:30 Diltiazem HCl (Cardizem Cd) 360 mg DAILY PO ; Start 01/28/17 at 09:00 Diphenhydramine HCl (Benadryl) 25 mg UNSCH PRN PO for hives/itching/anaphylaxis ; Start 01/27/17 at 12:30 Epoetin Erick (Epogen Inj) 10,000 units UNSCH PRN IV WITH DIALYSIS; Start at 12:30 Fenofibrate (Tricor) 145 mg HS PO ; Start 01/27/17 at 21:00 Folic Acid (Folate) 1 mg DAILY PO ; Start 01/28/17 at 09:00 Gelatin (Gelfoam 12 Mm/7 Mm Top) 1 foam UNSCH PRN TOP SEE LABEL COMMENTS; Start 01/27/17 at 12:30 Gentamicin Sulfate (Gentamicin (Dialysis) Inj) 20 mg UNSCH PRN IV WITH DIALYSIS ; Start 01/27/17 at 12:30 Heparin Sodium (Porcine) (Heparin Inj) UNSCH PRN .XX WITH DIALYSIS; Start at 12:30 Heparin Sodium (Porcine) 8000 units 8,000 units UNSCH PRN IVF WITH DIALYSIS; Start 01/27/17 at 12:30 Mannitol (Mannitol Inj) 12.5 gm UNSCH PRN IV WITH DIALYSIS; Start 01/27/17 at 12:30 Metoclopramide HCl (Reglan) 5 mg TIDAC PO ; Start 01/28/17 at 08:00 Miscellaneous (Pill Splitter) 1 ea UNSCH PRN OTHER SEE LABEL COMMENTS; Start at 18:15 Naloxone HCl (Narcan Inj) 0.4 mg UNSCH PRN IV SEE LABEL COMMENTS; Start at 13:45 Nitroglycerin (Nitrostat Sl) 0.4 mg UNSCH PRN SL CHEST PAIN; Start 01/27/17 at 12:30 Ondansetron HCl (Zofran Inj) 4 mg UNSCH PRN IV WITH DIALYSIS; Start 01/27/17 at 12:30 Pantoprazole Sodium (Protonix) 40 mg DAILY PO ; Start 01/28/17 at 09:00 Patient Own Medication Vjkqlsvcgjic-Ltwesclyop-Hpojoftem... DAILY PO ; Start at 09:00; Status Future Hold Rifaximin (Xifaxan) 550 mg BID PO ; Start 01/27/17 at 21:00 Sevelamer Carbonate (Renvela) 1,600 mg TID PO ; Start 01/27/17 at 18:00 Sodium Chloride (NS 1000 ml Inj) 1,000 ml @ 0 mls/hr Q0M PRN IV WITH DIALYSIS; Start 01/27/17 at 12:18 Sodium Chloride (NS 500 ml Inj) 500 ml @ 500 mls/hr BOLUS ONCE IV ; Start at 11:30; Stop 01/27/17 at 12:29; Status DC Sodium Chloride (NS Flush) 2 ml BID IV FLUSH ; Start 01/27/17 at 21:00; Stop at 21:00; Status DC Sodium Chloride 2 ml 2 ml UNSCH PRN IVF FLUSH AFTER USING IV ACCESS; Start at 11:30 Valacyclovir HCl (Valtrex) 1,000 mg DAILY PO ; Start 01/28/17 at 09:00 Family History Unable to obtain Social History Patient lives with sister, no alcohol, no substance abuse, no tobacco abuse Physical Exam Vital Signs Vital Signs Date Time Temp Pulse Resp B/P Pulse Ox O2 Delivery O2 Flow Rate FiO2 01/27/17 19:07 109 01/27/17 17:40 96.1 113 20 126/83 98 01/27/17 11:29 97 Room Air 01/27/17 11:20 90 18 99 Room Air 01/27/17 11:16 98.5 100 16 123/76 95 Physical Exam GENERAL: This is a well-nourished, chronically ill-appearing male SKIN: Has a wound that is covered with a dressing to the right inner upper arm. There is no erythema, there is dried drainage on the dressing. Right chest wall is noted with dialysis catheter. HEAD: Atraumatic. Normocephalic. No temporal or scalp tenderness. EYES: Pupils equal round and reactive. Extraocular motions intact. No scleral icterus. No injection or drainage. ENT: Nose without bleeding, purulent drainage or septal hematoma. Throat without erythema, tonsillar hypertrophy or exudate. Uvula midline. Airway patent. NECK: Trachea midline. No JVD or lymphadenopathy. Supple, nontender, no meningeal signs. CARDIOVASCULAR: S1 and S2, irregularly irregular, tachycardia. RESPIRATORY: Diminished at bases. GASTROINTESTINAL: Abdomen soft, non-tender, nondistended. No hepato-splenomegaly , or palpable masses. No guarding. MUSCULOSKELETAL: No joint abnormalities. Bilateral lower extremity with +1 pedal edema, pedal pulses 1+. Right arm noted with dependent edema. NEUROLOGICAL: Awakes to voice, oriented to self and place. Very slow to respond , it takes several prompts for him just to answer simple yes and no questions. Not following commands consistently. Upper and lower extremity strength 3 out of 5. Laboratory Laboratory Tests Test 01/27/17 11:30 White Blood Count 4.9 Red Blood Count 2.59 Hemoglobin 9.7 Hematocrit 28.3 Mean Corpuscular Volume 109.1 Mean Corpuscular Hemoglobin 37.3 Mean Corpuscular Hemoglobin 34.2 Concent Red Cell Distribution Width 15.3 Platelet Count 125 Mean Platelet Volume 8.1 Neutrophils (%) (Auto) 76.0 Lymphocytes (%) (Auto) 13.3 Monocytes (%) (Auto) 10.1 Eosinophils (%) (Auto) 0.0 Basophils (%) (Auto) 0.6 Neutrophils # (Auto) 3.7 Lymphocytes # (Auto) 0.7 Monocytes # (Auto) 0.5 Eosinophils # (Auto) 0.0 Basophils # (Auto) 0.0 CBC Comment DIFF FINAL Differential Comment Prothrombin Time 19.0 Prothromb Time International 1.7 Ratio Sodium Level 131 Potassium Level 6.2 Chloride Level 97 Carbon Dioxide Level 18.8 Anion Gap 15 Blood Urea Nitrogen 96 Creatinine 13.33 Estimat Glomerular Filtration 5 Rate Random Glucose 109 Calcium Level 7.9 Troponin I 0.05 Result Diagram: 01/27/17 1130 01/27/17 1130 Imaging Last Impressions Brain MRI 01/27/17 1144 Signed Impressions: Service Date/Time: January 12:36 - CONCLUSION: 1. No acute hemorrhage, infarction or mass effect. 2. Atrophy and chronic small vessel ischemic change again noted. Alden Elder MD Head CT 01/27/17 1122 Signed Impressions: Service Date/Time: January 11:50 - CONCLUSION: Normal examination. Cyrus Mcnulty MD Chest X-Ray 01/27/17 1122 Signed Impressions: Service Date/Time: January 12:02 - CONCLUSION: Mild cardiomegaly with no acute cardiopulmonary disease. Alden Elder MD Assessment and Plan Problem List: (1) Altered mental status (2) TIA (transient ischemic attack) (3) ESRD (end stage renal disease) (4) HIV disease (5) Anemia (6) Atrial fibrillation (7) Hyperkalemia (8) End stage renal disease (9) Hyperkalemia (10) HTN (hypertension) (11) COPD (chronic obstructive pulmonary disease) (12) CAD (coronary artery disease) (13) DM (diabetes mellitus) (14) Chronic CHF (15) Non-compliance Assessment and Plan Admitted to Dr. Avila 66-year-old male with history of HIV, end-stage renal disease on dialysis Tuesday and Tuesday, atrial fibrillation on aspirin, recent infection to left AV graft with MRSA that required removal, status post right AV graft placement. Patient presented to emergency room with altered mental status, possible TIA, versus metabolic encephalopathy, noncompliance with hemodialysis treatment. -Continue with neuro checks Neurology has been consulted, their input is appreciated Neuro workup is in progress EEG has been ordered, we will follow up on results -Echo and CUS ordered -Check ammonia level Continuous cardiac telemetry Continue with aspirin A dose of Eliquis was ordered, however patient at this time is lethargic and unable to take by mouth -NPO for now, until more awake -PT/OT/ST for evaluation End-stage renal disease, noncompliant with dialysis treatment, missed 2 treatments. Found with hyperkalemia Patient underwent hemodialysis treatment Nephrology has been consulted, their input is appreciated A. fib with RVR Continuous cardiac telemetry Resume Coreg and Cardizem Continue aspirin Recent infection of left upper extremity graft, positive for MRSA. Received antibiotics and required removal of graft. Most recently underwent removal of residual graft material, 12/07/2016. Status post right AV graft placement per Dr. Blackburn on 01/25/2017 -Monitor surgical site for any infection Keep right arm elevated Hypertension, stable Continue with home medications HIV Continue home medication Diabetes, diet control, blood glucose stable Accu-Cheks before meals and at bedtime with insulin therapy Since pt. is NPO, we will give D10 at 20 an hour to prevent hypoglycemia Chronic CHF, stable Continue home medications Monitor for fluid overload Echocardiogram has been ordered Home medications reviewed, initiated as indicated SCDs for DVT prophylaxis Plan of care has been discussed with the patient, attending and registered nurse. Further management of the patient will be dependent on the hospital course This patient was seen by myself and Dr. Avila, this H&P is written on his behalf Physician Certification 2 Midnight Certification Type: Admission for Inpatient Services Order for Inpatient Services The services are ordered in accordance with Medicare regulations or non- Medicare payer requirements, as applicable. In the case of services not specified as inpatient-only, they are appropriately provided as inpatient services in accordance with the 2-midnight benchmark. Estimated LOS (days): 2 2 days is the estimated time the patient will need to remain in the hospital, assuming treatment plan goals are met and no additional complications. Post-Hospital Plan: Not yet determined Problem Qualifiers (1) Altered mental status: Qualified Code: R41.82 - Altered mental status, unspecified altered mental status type (2) TIA (transient ischemic attack): Qualified Code: G45.9 - Transient cerebral ischemia, unspecified type (3) Anemia: (4) Atrial fibrillation: Qualified Code: I48.2 - Chronic atrial fibrillation (5) HTN (hypertension): Qualified Code: I10 - Essential hypertension (6) COPD (chronic obstructive pulmonary disease): Qualified Code: J44.9 - Chronic obstructive pulmonary disease, unspecified COPD type (7) CAD (coronary artery disease): Qualified Code: I25.10 - Coronary artery disease involving [place] coronary artery of [place] heart without angina pectoris (8) DM (diabetes mellitus): (9) Chronic CHF: Qualified Code: I50.9 - Chronic congestive heart failure, unspecified congestive heart failure type Shanthi Alarcon [facility] Jan 27, 2017 19:14
--- NOTE | 2017-01-27 19:28 | HP.UPD ---
H&P Update Note 66-year-old gentleman with end-stage renal disease and HIV admitted after general weakness and fall History of noncompliance, atrial fibrillation, hyperkalemia History of HIV Seen and examined in the emergency department Continue dialysis neurology consulted The patient does not appear to be a good candidate for long-term anti coagulation mainly because of his poor compliance Full history and physical to follow Izabella Avila MD Jan 27, 2017 19:25
[2017-01-27] MEDS ORDERED: GLUCAGON 1 MG/ML VIAL OTHER PRN (19:45)
[2017-01-27] MEDS ORDERED: DEXTROSE 50% IN WATER 50 ML VIAL(D50) IV PUSH PRN (19:45)
[2017-01-27] MEDS: INSULIN ASPART SUPPLEMENTAL SCALE SQ SCH (21:00)
[2017-01-27] MEDS ORDERED: SODIUM CHLORIDE 0.9% FLUSH 10 ML FLUSH IV FLUSH SCH (21:00)
[2017-01-27 23:04] VITALS: O2SAT 99
[2017-01-28] VITALS (8 sets, daily range): BP systolic 120–197; BP diastolic 70–90; PULSE 60–117; RESP 18; TEMP 95.7–97.9; O2SAT 95–99
--- NOTE | 2017-01-28 00:03 | RADRPT ---
EXAM DATE/TIME: 01/27/2017 23:01 [facility] COMPARISON: No previous studies available for comparison. INDICATIONS : Cerebrovascular accident. MEDICAL HISTORY : Congestive heart failure. Hypercholesterolemia. Hypertension. Hearing loss. Blind in left eye. Altere d mental status. Asthma. COPD. Emphysema. Dyspnea. Constipation. GERD. ESRD. Arthritis. Diabetes. Hep C. HIV+. MRSA. SURGICAL HISTORY : Dialysis. Av graft. ENCOUNTER: Initial ACUITY: 1 day PAIN SCORE: Nonresponsive. LOCATION: Bilateral neck PEAK SYSTOLIC VELOCITIES (cm/sec): ICA/CCA RATIO: Right: 2.1 Left: 0.9 ICA: Right: 111 Left: 71 CCA: Right: 53 Left: 81 ECA: Right: 123 Left: 126 VERTEBRAL: Right: 51 antegrade Left: 55 antegrade Elevated flow velocities and ICA/CCA ratios have been found to correlate with increased degrees of vessel stenosis, calculated as percentage of diameter relative to a normal segment of distal ICA/CCA FINDINGS: RIGHT CAROTID: Mild calcified atherosclerotic plaquing at the bifurcation. No significant stenosis is visualized. T he waveforms are within normal limits. LEFT CAROTID: Mild calcified atherosclerotic plaquing at the bifurcation. No significant stenosis is visualized. T he waveforms are within normal limits. VERTEBRAL ARTERIES: Antegrade flow is seen in both vertebral arteries. MISCELLANEOUS: None. CONCLUSION: Mild atherosclerotic plaquing at both carotid bifurcations. No focal high grade or hemodynamically si gnificant stenosis is demonstrated. [place] Christopher MD on January 28, 2017 at 0:00 Board Certified Radiologist. This report was verified electronically.
[2017-01-28] MEDS: CARVEDILOL 12.5 MG TAB PO SCH ×3 (01:13→20:53)
[2017-01-28] MEDS: INSULIN ASPART SUPPLEMENTAL SCALE SQ SCH ×4 (07:00→20:52)
[2017-01-28] MEDS: ASPIRIN EC 81 MG TABEC PO SCH (09:00)
[2017-01-28] MEDS ORDERED: [UNRECOGNIZED DRUG - OTHER] PO SCH (09:00)
--- NOTE | 2017-01-28 09:01 | HHI.PR ---
Objective Vital Signs Date Time Temp Pulse Resp B/P Pulse Ox O2 Delivery O2 Flow Rate FiO2 01/28/17 08:23 96.6 96 18 120/90 99 01/28/17 04:13 83 18 142/78 97 01/28/17 01:06 97.9 117 18 146/83 97 01/27/17 23:04 99 Nasal Cannula 2.00 01/27/17 19:07 109 01/27/17 17:40 96.1 113 20 126/83 98 01/27/17 11:29 97 Room Air 01/27/17 11:20 90 18 99 Room Air 01/27/17 11:16 98.5 100 16 123/76 95 I/O 01/27/17 01/27/17 01/27/17 01/28/17 01/28/17 01/28/17 07:00 15:00 23:00 07:00 15:00 23:00 Output Total 4000 ml Balance -4000 ml Output Hemodialysis 4000 ml Result Diagram: 01/27/17 1130 01/27/17 1130 Objective Remarks vff speech better more awake 5/5 bilat Assessment and Plan Assessment and Plan imp tia afib he needs anticoagulation but is unreliable no children he says he should go to [place] where they could give him eliquis or coumadin he refuses i told him if he does not will have cva he denies this us neg med team fu echo and eeg call 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 i will fu tuesday if still in hosp Denton Ortiz MD Jan 28, 2017 09:01
[2017-01-28] MEDS: RIFAXIMIN 550 MG TAB PO SCH ×3 (09:42→20:52)
[2017-01-28] MEDS: DILTIAZEM-CD 180 MG CAP ER PO SCH (09:42)
[2017-01-28] MEDS: FOLIC ACID 1 MG TAB PO SCH (09:42)
[2017-01-28] MEDS: METOCLOPRAMIDE HCL 10 MG TAB PO SCH ×3 (09:42→17:20)
[2017-01-28] MEDS: PANTOPRAZOLE SOD 40 MG DELAYED RELEASE TAB PO SCH (09:42)
[2017-01-28] MEDS: SEVELAMER CARBONATE 800 MG TAB PO SCH ×3 (09:43→17:19)
--- NOTE | 2017-01-28 09:51 | HHI.PR ---
Subjective Remarks more awake, oriented x 2 following commands states he missed HD because he had AVF placed c/o right arm pain no cp no sob wants something to eat Tele reviewed, afib, HR 90s Objective Objective Results - Vital Signs Date Time Temp Pulse Resp B/P Pulse Ox O2 Delivery O2 Flow Rate FiO2 01/28/17 08:23 96.6 96 18 120/90 99 01/28/17 04:13 83 18 142/78 97 01/28/17 01:06 97.9 117 18 146/83 97 01/27/17 23:04 99 Nasal Cannula 2.00 01/27/17 19:07 109 01/27/17 17:40 96.1 113 20 126/83 98 01/27/17 11:29 97 Room Air 01/27/17 11:20 90 18 99 Room Air 01/27/17 11:16 98.5 100 16 123/76 95 I/O 01/27/17 01/27/17 01/27/17 01/28/17 01/28/17 01/28/17 07:00 15:00 23:00 07:00 15:00 23:00 Output Total 4000 ml Balance -4000 ml Output Hemodialysis 4000 ml Result Diagram: 01/27/17 1130 01/27/17 1130 Imaging Last Impressions Brain MRI 01/27/17 1144 Signed Impressions: Service Date/Time: January 12:36 - CONCLUSION: 1. No acute hemorrhage, infarction or mass effect. 2. Atrophy and chronic small vessel ischemic change again noted. Alden Elder MD Head CT 01/27/17 1122 Signed Impressions: Service Date/Time: January 11:50 - CONCLUSION: Normal examination. Cyrus Mcnulty MD Chest X-Ray 01/27/17 112 Signed Impressions: Service Date/Time: January 12:02 - CONCLUSION: Mild cardiomegaly with no acute cardiopulmonary disease. Alden Elder MD Other Results Laboratory Tests Test 01/27/17 01/27/17 01/28/17 11:30 20:48 06:21 White Blood Count 4.9 Red Blood Count 2.59 Hemoglobin 9.7 Hematocrit 28.3 Mean Corpuscular Volume 109.1 Mean Corpuscular Hemoglobin 37.3 Mean Corpuscular Hemoglobin 34.2 Concent Red Cell Distribution Width 15.3 Platelet Count 125 Mean Platelet Volume 8.1 Neutrophils (%) (Auto) 76.0 Lymphocytes (%) (Auto) 13.3 Monocytes (%) (Auto) 10.1 Eosinophils (%) (Auto) 0.0 Basophils (%) (Auto) 0.6 Neutrophils # (Auto) 3.7 Lymphocytes # (Auto) 0.7 Monocytes # (Auto) 0.5 Eosinophils # (Auto) 0.0 Basophils # (Auto) 0.0 CBC Comment DIFF FINAL Differential Comment Prothrombin Time 19.0 Prothromb Time International 1.7 Ratio Sodium Level 131 Potassium Level 6.2 Chloride Level 97 Carbon Dioxide Level 18.8 Anion Gap 15 Blood Urea Nitrogen 96 Creatinine 13.33 Estimat Glomerular Filtration 5 Rate Random Glucose 109 Calcium Level 7.9 Troponin I 0.05 0.09 0.11 Ammonia 27 Total Creatine Kinase 299 232 Physical Exam Physical Exam Physical Exam GENERAL: This is a well-nourished, chronically ill-appearing male SKIN: Has a wound that is covered with a dressing to the right inner upper arm. There is no erythema, there is dried drainage on the dressing. Right chest wall is noted with dialysis catheter. HEAD: Atraumatic. Normocephalic. No temporal or scalp tenderness. EYES: Pupils equal round and reactive. Extraocular motions intact. No scleral icterus. No injection or drainage. ENT: Nose without bleeding, purulent drainage or septal hematoma. Throat without erythema, tonsillar hypertrophy or exudate. Uvula midline. Airway patent. NECK: Trachea midline. No JVD or lymphadenopathy. Supple, nontender, no meningeal signs. CARDIOVASCULAR: S1 and S2, irregularly irregular. RESPIRATORY: Diminished at bases. GASTROINTESTINAL: Abdomen soft, non-tender, nondistended. No hepato-splenomegaly , or palpable masses. No guarding. MUSCULOSKELETAL: No joint abnormalities. Bilateral lower extremity with +1 pedal edema, pedal pulses 1+. Right arm noted with dependent edema. NEUROLOGICAL: Awakes to voice, oriented to self and place. Very slow to respond , it takes several prompts for him just to answer simple yes and no questions. More awake, talkative, slow to respond. Appears to be at his baseline. Oriented to self, place, not sure of year. Following commands, no focal deficits. Urinary Catheter: No Vascular Central Line Catheter: No A/P Diagnosis: (1) Altered mental status (2) TIA (transient ischemic attack) (3) ESRD (end stage renal disease) (4) HIV disease (5) Anemia (6) Atrial fibrillation (7) Hyperkalemia (8) End stage renal disease (9) Hyperkalemia (10) HTN (hypertension) (11) COPD (chronic obstructive pulmonary disease) (12) CAD (coronary artery disease) (13) DM (diabetes mellitus) (14) Chronic CHF (15) Non-compliance Assessment and Plan 66-year-old male with history of HIV, end-stage renal disease on dialysis Tuesday and Tuesday, atrial fibrillation on aspirin, recent infection to left AV graft with MRSA that required removal, status post right AV graft placement. Patient presented to emergency room with altered mental status, possible TIA, versus metabolic encephalopathy, noncompliance with hemodialysis treatment. Improved, more awake. -Continue with neuro checks Neurology has been consulted,input appreciated. Recommends anticoagulation, Coumadin or Eliquis, however pt. refusing. CUS okay no stenosis. Echo and EEG pending -Ammonia level okay Continuous cardiac telemetry Continue with aspirin A dose of Eliquis was ordered, however patient was lethargic and unable to take by mouth -now awake, ok to feed per ST recommendations -PT/OT/ST for evaluation End-stage renal disease, noncompliant with dialysis treatment, missed 2 treatments. Found with hyperkalemia Patient underwent hemodialysis treatment 01/27 Nephrology has been consulted, their input is appreciated A. fib with RVR Continuous cardiac telemetry Resume Coreg and Cardizem Continue aspirin Recent infection of left upper extremity graft, positive for MRSA. Received antibiotics and required removal of graft. Most recently underwent removal of residual graft material, 12/07/2016. Status post right AV graft placement per Dr. Blackburn on 01/25/2017 -Monitor surgical site for any infection Keep right arm elevated Hypertension, stable Continue with home medications HIV Continue home medication Diabetes, diet control, blood glucose stable. Blood glucose 75 to 90 overnight. Accu-Cheks before meals and at bedtime with insulin therapy -D/C D10w, pt. now eating Chronic CHF, stable Continue home medications Monitor for fluid overload Echocardiogram has been ordered, pending SCDs for DVT prophylaxis mental status improved, poss. metabolic, however pt. at risk for CVA due to afib. He's refusing anticoagulation. Poss. dc tomorrow home with [facility], lives with sister continue with above tx D/W RN D/W Dr. Avila D/W pt This patient was seen by myself and Dr. Avila, this note is written on his behalf Problem Qualifiers (1) Altered mental status: Qualified Code: R41.82 - Altered mental status, unspecified altered mental status type (2) TIA (transient ischemic attack): Qualified Code: G45.9 - Transient cerebral ischemia, unspecified type (3) Anemia: (4) Atrial fibrillation: Qualified Code: I48.2 - Chronic atrial fibrillation (5) HTN (hypertension): Qualified Code: I10 - Essential hypertension (6) COPD (chronic obstructive pulmonary disease): Qualified Code: J44.9 - Chronic obstructive pulmonary disease, unspecified COPD type (7) CAD (coronary artery disease): Qualified Code: I25.10 - Coronary artery disease involving [place] coronary artery of [place] heart without angina pectoris (8) DM (diabetes mellitus): (9) Chronic CHF: Qualified Code: I50.9 - Chronic congestive heart failure, unspecified congestive heart failure type Shanthi Alarcon Jan 28, 2017 09:51
[2017-01-28 10:14] LABS: BICARBONATE 24.2 MEQ/L (21.0-32.0); POTASSIUM 4.3 MEQ/L (3.5-5.1)
--- NOTE | 2017-01-28 10:41 | HHI.NPPN ---
Subjective Complaints: Confused General Problems: Edema Renal Failure: Chronic, End Stage Renal Disease Interval History Had dialysis yesterday. Hyperkalemia corrected. Working with therapy in room. ( Moni Yung) Objective Data Data 01/27/17 01/28/17 19:00 07:00 Output Total 4000 ml Balance -4000 ml Output Hemodialysis 4000 ml Vital Signs Date Time Temp Pulse Resp B/P Pulse Ox O2 Delivery O2 Flow Rate FiO2 01/28/17 08:23 96.6 96 18 120/90 99 01/28/17 04:13 83 18 142/78 97 01/28/17 01:06 97.9 117 18 146/83 97 01/27/17 23:04 99 Nasal Cannula 2.00 01/27/17 19:07 109 01/27/17 17:40 96.1 113 20 126/83 98 01/27/17 11:29 97 Room Air 01/27/17 11:20 90 18 99 Room Air 01/27/17 11:16 98.5 100 16 123/76 95 (Moni Yung) -: 01/27/17 1130 01/28/17 0621 Imaging Last Impressions Carotid Artery Ultrasound 01/27/17 1603 Signed Impressions: Service Date/Time: January 23:01 - CONCLUSION: Mild atherosclerotic plaquing at both carotid bifurcations. No focal high grade or hemodynamically significant stenosis is demonstrated. Indio Christopher MD Brain MRI 01/27/17 1144 Signed Impressions: Service Date/Time: January 12:36 - CONCLUSION: 1. No acute hemorrhage, infarction or mass effect. 2. Atrophy and chronic small vessel ischemic change again noted. Alden Elder MD Head CT 01/27/17 1122 Signed Impressions: Service Date/Time: January 11:50 - CONCLUSION: Normal examination. Cyrus Mcnulty MD Chest X-Ray 01/27/17 1122 Signed Impressions: Service Date/Time: January 12:02 - CONCLUSION: Mild cardiomegaly with no acute cardiopulmonary disease. Alden Elder MD (Moni Yung) Physical Exam General Appearance: Well Developed, Well Nourished, No Acute Distress, Comfortable ( Moni Yung) Throat Throat Exam: Oral Mucosa [place] & Moist (Moni Yung) Pulmonary Resp Exam: Clear Bilaterally, Breath Sounds Equal, Diminished Breath Sounds ( Moni Yung) Cardiology CV Exam: Good Perfusion, Irregular (Moni Yung) Gastrointestinal/Abdomen GI Exam: Soft, Non-Tender, Bowel Sounds Present (Moni Yung) Musculoskeletal MS Exam: Joints Intact, Normal Tone (Moni Yung) Integumentary Skin Exam: Warm, Dry (Moni Yung) Extremeties Extremities Exam: Pedal Pulses Palpable, Trace Edema Extremeties Remarks right arm AV graft + thrill/bruit (Moni Yung) Neurologic Neuro Exam: Awake, Moving All Extremities Neuro Remarks slow to respond (Moni Yung) Assessment/Plan Discussed Condition With: Patient, Relative Assessment Summary: Anemia of CKD Problem List: (1) ESRD (end stage renal disease) Plan: dialyzed yesterday, 4L UF continue HD TTS fluid status improved hyperkalemia corrected Continue to monitor volume status and electrolytes. Avoid Gadolinium. HD tomorrow Permcath for HD, s/p AVG revision (2) Hyperkalemia Plan: corrected off D10 (3) HIV disease Plan: Continue anti retrovirals. (4) Anemia Plan: Epogen with dialysis. (5) Atrial fibrillation Plan: on ASA, cardizem, Lopressor given a dose of Eliquis (Moni Yung) Plan patient was seen and examined. Continue dialysis TTS. Hyperkalemia has improved. Needs physical therapy. (Tyson Arboleda MD) Problem Qualifiers (1) Anemia: (2) Atrial fibrillation: Qualified Code: I48.2 - Chronic atrial fibrillation Moni Yung Jan 28, 2017 10:41 Tyson Arboleda MD Jan 28, 2017 15:25
--- NOTE | 2017-01-28 11:27 | EC ---
Study Study Date:01/28/2017 STUDY CONCLUSIONS SUMMARY - Procedure narrative: Transthoracic echocardiography. Image quality was good. Scanning was performed from the parasternal, apical, and subcostal acoustic windows. - Left ventricle: The cavity size was normal. Wall thickness was increased in a pattern of mild LVH. Systolic function was normal. The estimated ejection fraction was in the range of 55% to 60%. Wall motion was normal; there were no regional wall motion abnormalities. - Mitral valve: Trace regurgitation. If LV function is below 40, please consider prescribing an ACEI or ARB or document rationale for non-use. PROCEDURE DATA STUDY STATUS: Elective. Procedure: Transthoracic echocardiography. Image quality was good. Scanning was performed from the parasternal, apical, and subcostal acoustic windows. Study completion: The patient tolerated the procedure well. Transthoracic echocardiography. M-mode, complete 2D, complete spectral Doppler, and color Doppler. Patient status: Inpatient. CARDIAC ANATOMY LEFT VENTRICLE: The cavity size was normal. Wall thickness was increased in a pattern of mild LVH. Systolic function was normal. The estimated ejection fraction was in the range of 55% to 60%. Wall motion was normal; there were no regional wall motion abnormalities. AORTIC VALVE: Trileaflet; normal thickness leaflets. Doppler: Transvalvular velocity was within the normal range. There was no stenosis. No regurgitation. AORTA: Aortic root: The aortic root was normal in size. MITRAL VALVE: Structurally normal valve. Doppler: Transvalvular velocity was within the normal range. There was no evidence for stenosis. Trace regurgitation. Peak gradient: 3mm Hg (D). LEFT ATRIUM: The atrium was normal in size. RIGHT VENTRICLE: The cavity size was normal. Wall thickness was normal. PULMONIC VALVE: Doppler: Transvalvular velocity was within the normal range. There was no evidence for stenosis. No regurgitation. TRICUSPID VALVE: Structurally normal valve. Doppler: Transvalvular velocity was within the normal range. No regurgitation. PULMONARY ARTERY: The main pulmonary artery was normal-sized. Systolic pressure was within the normal range. RIGHT ATRIUM: The atrium was normal in size. PERICARDIUM: There was no pericardial effusion. SYSTEMIC VEINS: Inferior vena cava: The vessel was normal in size. BASIC MEASUREMENTS ADULT Normal Left ventricle LV internal dimension, ED, chordal level, 45.8 mm 43-52 PLAX LV internal dimension, ES, chordal level, 36 mm 23-38 PLAX Fractional shortening, chordal level, PLAX *21 % >29 LV posterior wall thickness, ED 9.72 mm IVS/LVPW ratio, ED *1.48 <1.3 Ventricular septum Septal thickness, ED 14.4 mm Aortic valve Leaflet separation 19 mm 15-26 Left atrium Anterior-posterior dimension 33 mm Right ventricle RV internal dimension, ED, PLAX 25.8 mm 19-38 BASIC MEASUREMENTS ADULT Normal Aortic valve Leaflet separation 19 mm 15-26 Aorta Root diameter, ED 36 mm 20-37 DOPPLER MEASUREMENTS ADULT Normal Main pulmonary artery Pressure, S *35 mm Hg =30 Aortic valve Peak velocity, S 124 cm/s Mitral valve Peak E-wave velocity 87.4 cm/s Peak A-wave velocity 47.9 cm/s Peak gradient, D 3 mm Hg Peak E/A ratio 1.8 Tricuspid valve Regurgitant peak velocity 274 cm/s Peak RV-RA gradient, S 30 mm Hg Maximal regurgitant velocity 274 cm/s Systemic veins Estimated CVP 5 mm Hg Right ventricle RV pressure, S *35 mm Hg <30 LEGEND: Mean values are shown as u=mean value. Asterisk (*) cornelius values outside specified normal range. Prepared and signed by John Valdes [id number]
[2017-01-28] MEDS: valACYclovir HCL 500 MG TAB PO SCH (12:33)
[2017-01-28] MEDS: ACETAMINOPHEN 325 MG TAB PO PRN ×2 (12:46→17:20)
--- NOTE | 2017-01-28 19:30 | HHI.FF ---
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 My clinical findings support the need for the requested home health care services because: Patient has SOB Deconditioned w/ increased weakness Med compliance is questionable Need for psychosocial assistance Impaired cognition/judgement High risk of falls I certify that my clinical findings support that this patient is homebound because: Impaired cognitive ability/safety Unsteady gait/balance Unsafe to leave home unassisted Need for psychosocial assistance Poor cardiac reserve Shanthi Alarcon. [facility] Jan 28, 2017 19:30
[2017-01-28] MEDS: FENOFIBRATE 145 MG TAB PO SCH (20:52)
--- NOTE | 2017-01-28 22:46 | MG ---
cc: JOYCE SHEPHERD MD Lab No: [id number] Date: 01/28/17 Age: Sex: M Race: : 1950 A 66-year-old history of generalized weakness. 1-3 Hz generalized delta activity 20-50 microvolts. Limited driving with photic stimulation. Frontal high-frequency myogenic artifact. Beta sharp transient buzz occurring around epoch 87. Rhythmic delta followed by what appeared to be an arousal increment of posterior rhythm 6-7 Hz. Single lead EKG showing some irregularity. INTERPRETATION Mild to moderate encephalopathy. Clinical correlation. MD JOSEPH Membreno/ /9:54 PM /10:34 PM
[2017-01-29] VITALS (9 sets, daily range): BP systolic 123–213; BP diastolic 62–91; PULSE 57–100; RESP 18–20; TEMP 96.2–98.1; O2SAT 95–98
[2017-01-29] MEDS: INSULIN ASPART SUPPLEMENTAL SCALE SQ SCH ×4 (05:10→20:49)
[2017-01-29] MEDS: FOLIC ACID 1 MG TAB PO SCH (09:49)
[2017-01-29] MEDS: SEVELAMER CARBONATE 800 MG TAB PO SCH ×3 (09:49→17:06)
[2017-01-29] MEDS: ASPIRIN EC 81 MG TABEC PO SCH (09:49)
[2017-01-29] MEDS: RIFAXIMIN 550 MG TAB PO SCH ×2 (09:49→20:48)
[2017-01-29] MEDS: CARVEDILOL 12.5 MG TAB PO SCH ×2 (09:49→20:48)
[2017-01-29] MEDS: PANTOPRAZOLE SOD 40 MG DELAYED RELEASE TAB PO SCH (09:49)
[2017-01-29] MEDS: valACYclovir HCL 500 MG TAB PO SCH (09:50)
[2017-01-29] MEDS: ACETAMINOPHEN 325 MG TAB PO PRN (09:52)
[2017-01-29] MEDS: DILTIAZEM-CD 180 MG CAP ER PO SCH (09:53)
[2017-01-29] MEDS: METOCLOPRAMIDE HCL 10 MG TAB PO SCH ×3 (09:54→17:06)
--- NOTE | 2017-01-29 11:15 | HHI.NPPN ---
Subjective Complaints: Confused General Problems: Edema Renal Failure: Chronic, End Stage Renal Disease Objective Data Data 01/28/17 01/29/17 19:00 07:00 Intake Total 120 ml Balance 120 ml Intake Oral 120 ml # Bowel Movements 1 Vital Signs Date Time Temp Pulse Resp B/P Pulse Ox O2 Delivery O2 Flow Rate FiO2 01/29/17 08:36 97.2 87 20 123/73 97 01/29/17 04:00 96.2 79 18 141/62 98 01/29/17 03:00 97.3 57 18 168/70 96 01/29/17 00:00 97.3 72 18 197/81 98 01/28/17 20:13 62 01/28/17 20:00 95.7 75 18 197/79 98 01/28/17 16:33 96.5 60 18 158/70 96 -: 01/27/17 1130 01/28/17 0621 Physical Exam General Appearance: Well Developed, Well Nourished, No Acute Distress, Comfortable Throat Throat Exam: Oral Mucosa [place] & Moist Pulmonary Resp Exam: Clear Bilaterally, Breath Sounds Equal, Diminished Breath Sounds Cardiology CV Exam: Good Perfusion, Irregular Gastrointestinal/Abdomen GI Exam: Soft, Non-Tender, Bowel Sounds Present Musculoskeletal MS Exam: Joints Intact, Normal Tone Integumentary Skin Exam: Warm, Dry Extremeties Extremities Exam: Pedal Pulses Palpable, Trace Edema Neurologic Neuro Exam: Awake, Moving All Extremities Assessment/Plan Discussed Condition With: Patient, Relative Assessment Summary: Anemia of CKD Problem List: (1) ESRD (end stage renal disease) Plan: continue HD TTS fluid status improved hyperkalemia corrected Seen during hemodialysis 3 L (2) Hyperkalemia Plan: corrected off D10 (3) HIV disease Plan: Continue anti retrovirals. (4) Anemia Plan: Epogen with dialysis. (5) Atrial fibrillation Plan: on ASA, cardizem, Lopressor given a dose of Eliquis Problem Qualifiers (1) Anemia: (2) Atrial fibrillation: Qualified Code: I48.2 - Chronic atrial fibrillation Sky Santana MD Jan 29, 2017 11:15 Qualified Code: I48.2 - Chronic atrial fibrillation Sky Santana MD Jan 29, 2017 11:15
--- NOTE | 2017-01-29 18:23 | HHI.PR ---
Subjective Interval History Alert, verbal, sitting on the side of the bed eating, Review of Systems Constitutional Constitutional Remarks Poor historian, no specific complaints at this time, 10 systems reviewed and otherwise negative Vitals/Results Intake & Output 01/28/17 01/28/17 01/29/17 15:00 23:00 07:00 Intake Total 120 ml Balance 120 ml Intake Oral 120 ml # Bowel Movements 1 Vital Signs Vital Signs Date Time Temp Pulse Resp B/P Pulse Ox O2 Delivery O2 Flow Rate FiO2 01/29/17 17:25 98 01/29/17 15:53 96.9 95 20 95 01/29/17 14:07 76 01/29/17 11:32 97 21 01/29/17 08:36 97.2 87 20 123/73 97 01/29/17 04:00 96.2 79 18 141/62 98 01/29/17 03:00 97.3 57 18 168/70 96 01/29/17 00:00 97.3 72 18 197/81 98 01/28/17 20:13 62 01/28/17 20:00 95.7 75 18 197/79 98 CBC/BMP: 01/27/17 1130 01/28/17 0621 Physical Exam General General Appearance: Well Developed, Well Nourished, No Acute Distress, Comfortable Throat Throat Exam: Oral Mucosa [place] & Moist Pulmonary Resp Exam: Clear Bilaterally, Breath Sounds Equal, Diminished Breath Sounds Cardiology CV Exam: Good Perfusion, Irregular Gastrointestinal/Abdomen GI Exam: Soft, Non-Tender, Bowel Sounds Present Musculoskeletal MS Exam: Joints Intact, Normal Tone Integumentary Skin Exam: Warm, Dry Extremeties Extremities Exam: Pedal Pulses Palpable, Trace Edema Neurologic Neuro Exam: Awake, Moving All Extremities Psychiatric Psych Exam: Appropriate Responses Assessment/Plan Assessment/Plan Diagnosis: Admitted with altered mental status, improved End-stage renal disease on dialysis HIV Anemia Poor compliance Atrial fibrillation, not on anticoagulation as patient has been refusing also he 's not reliable History of COPD, hypertension, coronary disease, diabetes, renal failure, heart failure with preserved function Status post recent right upper extremity AV fistula Plan Continue dialysis Atrial fibrillation on aspirin Nephrology and neurology following Neurologist would like him placed so he can get anticoagulated Patient is not keen on placement Physical therapy/occupational therapy/speech therapy Will reevaluate the question of placement Tuesday Discussed with patient Discussed with nurse D/W RN D/W patient Kayyal,Izabella MD Jan 29, 2017 18:23 Continue aspirin Recent infection of left upper extremity graft, positive for MRSA. Received antibiotics and required removal of graft. Most recently underwent removal of residual graft material, 12/07/2016. Status post right AV graft placement per Dr. Blackburn on 01/25/2017 -Monitor surgical site for any infection Keep right arm elevated Hypertension, stable Continue with home medications HIV Continue home medication Diabetes, diet control, blood glucose stable. Blood glucose 75 to 90 overnight. Accu-Cheks before meals and at bedtime with insulin therapy -D/C D10w, pt. now eating Chronic CHF, stable Continue home medications Monitor for fluid overload Echocardiogram has been ordered, pending D/W RN D/W patient Izabella Avila MD Jan 29, 2017 18:23
[2017-01-29] MEDS: FENOFIBRATE 145 MG TAB PO SCH (20:49)
[2017-01-29] MEDS: cloNIDine HCL 0.1 MG TAB PO PRN (22:54)
[2017-01-30] VITALS (10 sets, daily range): BP systolic 131–221; BP diastolic 73–110; PULSE 93–124; RESP 18–20; TEMP 96.4–98.9; O2SAT 96–100
[2017-01-30] MEDS ORDERED: DILTIAZEM HCL 30 MG TAB PO ONE (01:30)
[2017-01-30] MEDS ORDERED: DILTIAZEM HCL 25 MG/5 ML VIAL IV ONE (03:45)
[2017-01-30] MEDS: ACETAMINOPHEN/HYDROcodone 325 MG/7.5 MG TAB PO PRN ×3 (03:58→21:43)
[2017-01-30] MEDS: cloNIDine HCL 0.1 MG TAB PO PRN (06:09)
[2017-01-30] MEDS: INSULIN ASPART SUPPLEMENTAL SCALE SQ SCH ×4 (06:15→21:00)
[2017-01-30] MEDS: ASPIRIN EC 81 MG TABEC PO SCH (10:11)
[2017-01-30] MEDS: PANTOPRAZOLE SOD 40 MG DELAYED RELEASE TAB PO SCH (10:11)
[2017-01-30] MEDS: FOLIC ACID 1 MG TAB PO SCH (10:12)
[2017-01-30] MEDS: CARVEDILOL 12.5 MG TAB PO SCH ×2 (10:12→21:40)
[2017-01-30] MEDS: METOCLOPRAMIDE HCL 10 MG TAB PO SCH ×3 (10:12→17:18)
[2017-01-30] MEDS: valACYclovir HCL 500 MG TAB PO SCH (10:12)
[2017-01-30] MEDS: RIFAXIMIN 550 MG TAB PO SCH ×2 (10:13→21:40)
[2017-01-30] MEDS: DILTIAZEM HCL 30 MG TAB PO SCH ×4 (10:13→21:40)
[2017-01-30] MEDS: SEVELAMER CARBONATE 800 MG TAB PO SCH ×3 (10:13→17:18)
--- NOTE | 2017-01-30 12:55 | HHI.NPPN ---
Subjective Complaints: Confused General Problems: Edema Renal Failure: Chronic, End Stage Renal Disease Objective Data Data 01/29/17 01/30/17 19:00 07:00 Intake Total 240 ml 480 ml Output Total 3000 ml Balance -2760 ml 480 ml Intake Oral 240 ml 480 ml Output Hemodialysis 3000 ml # Voids 3 # Bowel Movements 1 1 Vital Signs Date Time Temp Pulse Resp B/P Pulse Ox O2 Delivery O2 Flow Rate FiO2 01/30/17 12:41 97.0 105 18 131/92 99 01/30/17 10:52 106 01/30/17 10:51 96 Nasal Cannula 21 01/30/17 08:43 96.6 120 18 165/79 96 01/30/17 05:36 170/103 01/30/17 04:00 98.9 124 20 221/87 99 01/30/17 01:18 123 185/104 01/30/17 00:00 98.4 121 20 201/110 98 01/29/17 20:00 98.1 100 20 213/80 98 01/29/17 20:00 97 01/29/17 17:25 98 01/29/17 15:53 96.9 95 20 170/91 95 01/29/17 14:07 76 -: 01/27/17 1130 01/28/17 0621 Physical Exam General Appearance: Well Developed, Well Nourished, No Acute Distress, Comfortable Throat Throat Exam: Oral Mucosa [place] & Moist Pulmonary Resp Exam: Clear Bilaterally, Breath Sounds Equal, Diminished Breath Sounds Cardiology CV Exam: Good Perfusion, Irregular Gastrointestinal/Abdomen GI Exam: Soft, Non-Tender, Bowel Sounds Present Musculoskeletal MS Exam: Joints Intact, Normal Tone Integumentary Skin Exam: Warm, Dry Extremeties Extremities Exam: Pedal Pulses Palpable, Trace Edema Neurologic Neuro Exam: Awake, Moving All Extremities Psychiatric Psych Exam: Appropriate Responses Assessment/Plan Discussed Condition With: Patient, Relative Assessment Summary: Anemia of CKD Problem List: (1) ESRD (end stage renal disease) Plan: continue HD TTS fluid status improved hyperkalemia corrected hemodialysis yesterday OK to dc from Nephrology point of view (2) Hyperkalemia Plan: corrected (3) HIV disease Plan: Continue anti retrovirals. (4) Anemia Plan: Epogen with dialysis. (5) Atrial fibrillation Plan: on ASA, cardizem, Lopressor given a dose of Eliquis Problem Qualifiers (1) Anemia: (2) Atrial fibrillation: Qualified Code: I48.2 - Chronic atrial fibrillation Sky Santana MD Jan 30, 2017 12:55
--- NOTE | 2017-01-30 18:13 | HHI.PR ---
Subjective Interval History Alert, verbal, wants to go home, he was informed about the neurologist recommendation for him to go to a snf, "I ain't no going to no snf" Review of Systems Constitutional Constitutional Remarks Poor historian, no specific complaints at this time, 10 systems reviewed and otherwise negative Vitals/Results Intake & Output 01/29/17 01/29/17 01/30/17 15:00 23:00 07:00 Intake Total 600 ml 120 ml Output Total 3000 ml Balance -3000 ml 600 ml 120 ml Intake Oral 600 ml 120 ml Output Hemodialysis 3000 ml # Voids 1 2 # Bowel Movements 2 0 Vital Signs Vital Signs Date Time Temp Pulse Resp B/P Pulse Ox O2 Delivery O2 Flow Rate FiO2 01/30/17 16:22 96.4 111 18 158/83 99 01/30/17 12:41 97.0 105 18 131/92 99 01/30/17 10:52 106 01/30/17 10:51 96 Nasal Cannula 21 01/30/17 08:43 96.6 120 18 165/79 96 01/30/17 05:36 170/103 01/30/17 04:00 98.9 124 20 221/87 99 01/30/17 01:18 123 185/104 01/30/17 00:00 98.4 121 20 201/110 98 01/29/17 20:00 98.1 100 20 213/80 98 01/29/17 20:00 97 CBC/BMP: 01/27/17 1130 01/28/17 0621 Physical Exam General General Appearance: Well Developed, Well Nourished, No Acute Distress, Comfortable Throat Throat Exam: Oral Mucosa [place] & Moist Pulmonary Resp Exam: Clear Bilaterally, Breath Sounds Equal, Diminished Breath Sounds Cardiology CV Exam: Good Perfusion, Irregular Gastrointestinal/Abdomen GI Exam: Soft, Non-Tender, Bowel Sounds Present Musculoskeletal MS Exam: Joints Intact, Normal Tone Integumentary Skin Exam: Warm, Dry Extremeties Extremities Exam: Pedal Pulses Palpable, Trace Edema Neurologic Neuro Exam: Awake, Moving All Extremities Psychiatric Psych Exam: Appropriate Responses Assessment/Plan Assessment/Plan Diagnosis: Admitted with altered mental status, improved End-stage renal disease on dialysis HIV Anemia Poor compliance Atrial fibrillation, not on anticoagulation as patient has been refusing also he 's not reliable History of COPD, hypertension, coronary disease, diabetes, renal failure, heart failure with preserved function Status post recent right upper extremity AV fistula Placement was recommended by neurology the patient is refusing Plan Continue dialysis Atrial fibrillation on aspirin Nephrology and neurology following Neurologist would like him placed so he can get anticoagulated Patient is refusing placement Physical therapy/occupational therapy/speech therapy Discharge home with home health Discussed with patient Discussed with nurse D/W RN D/W patient Discharge Minutes: 45 Izabella Avila MD Jan 30, 2017 18:13
[2017-01-30] MEDS: FENOFIBRATE 145 MG TAB PO SCH (21:00)
[2017-01-31] VITALS: BP 140/81; PULSE 112; RESP 20; TEMP 97.6; O2SAT 96
[2017-01-31 04:00] VITALS: BP 184/78; PULSE 114; RESP 20; TEMP 97.7; O2SAT 99
[2017-01-31] MEDS: INSULIN ASPART SUPPLEMENTAL SCALE SQ SCH (05:58)
[2017-01-31 08:00] VITALS: BP 198/97; PULSE 117; RESP 18; TEMP 97.4; O2SAT 98
--- NOTE | 2017-01-31 08:10 | HHI.PR ---
Objective Vital Signs Date Time Temp Pulse Resp B/P Pulse Ox O2 Delivery O2 Flow Rate FiO2 01/31/17 08:00 97.4 117 18 198/97 98 01/31/17 04:00 97.7 114 20 184/78 99 01/31/17 00:00 97.6 112 20 140/81 96 01/30/17 20:00 118 01/30/17 20:00 97.5 93 20 167/73 100 01/30/17 16:22 96.4 111 18 158/83 99 01/30/17 12:41 97.0 105 18 131/92 99 01/30/17 10:52 106 01/30/17 10:51 96 Nasal Cannula 21 01/30/17 08:43 96.6 120 18 165/79 96 I/O 01/30/17 01/30/17 01/30/17 01/31/17 01/31/17 01/31/17 07:00 15:00 23:00 07:00 15:00 23:00 Intake Total 120 ml 360 ml 240 ml 120 ml Balance 120 ml 360 ml 240 ml 120 ml Intake Oral 120 ml 360 ml 240 ml 120 ml # Voids 2 0 0 2 # Bowel Movements 0 2 0 1 Result Diagram: 01/27/17 1130 01/28/17 0621 Objective Remarks vff speech better more awake 5/5 bilat no change Assessment and Plan Assessment and Plan imp tia afib he needs anticoagulation but is unreliable no children he says he refuses i told him if he does not will have cva he denies this fu echo and eeg and us all neg he should go to dc where they could give him eliquis or coumadin . i will sign off Denton Ortiz MD Jan 31, 2017 08:09
[2017-01-31] MEDS: SEVELAMER CARBONATE 800 MG TAB PO SCH ×2 (10:38→13:23)
[2017-01-31] MEDS: CARVEDILOL 12.5 MG TAB PO SCH (10:39)
[2017-01-31] MEDS: valACYclovir HCL 500 MG TAB PO SCH (10:40)
[2017-01-31] MEDS: RIFAXIMIN 550 MG TAB PO SCH (10:40)
[2017-01-31] MEDS: PANTOPRAZOLE SOD 40 MG DELAYED RELEASE TAB PO SCH (10:40)
[2017-01-31] MEDS: DILTIAZEM HCL 30 MG TAB PO SCH ×2 (10:41→13:22)
[2017-01-31] MEDS: FOLIC ACID 1 MG TAB PO SCH (10:42)
[2017-01-31] MEDS: ASPIRIN EC 81 MG TABEC PO SCH (10:42)
[2017-01-31] MEDS: METOCLOPRAMIDE HCL 10 MG TAB PO SCH (10:42)
--- NOTE | 2017-01-31 10:47 | HHI.NPPN ---
Subjective Renal Failure: Chronic, End Stage Renal Disease Interval History More talkative today. He is adamant about not being discharged to a facility. ( Moni Yung) Objective Data Data 01/30/17 01/31/17 19:00 07:00 Intake Total 360 ml 360 ml Balance 360 ml 360 ml Intake Oral 360 ml 360 ml # Voids 0 2 # Bowel Movements 2 1 Vital Signs Date Time Temp Pulse Resp B/P Pulse Ox O2 Delivery O2 Flow Rate FiO2 01/31/17 08:00 97.4 117 18 198/97 98 01/31/17 04:00 97.7 114 20 184/78 99 01/31/17 00:00 97.6 112 20 140/81 96 01/30/17 20:00 118 01/30/17 20:00 97.5 93 20 167/73 100 01/30/17 16:22 96.4 111 18 158/83 99 01/30/17 12:41 97.0 105 18 131/92 99 01/30/17 10:52 106 01/30/17 10:51 96 Nasal Cannula 21 (Moni Yung) -: 01/27/17 1130 01/28/17 0621 Physical Exam General Appearance: Well Developed, Well Nourished, No Acute Distress, Comfortable ( Moni Yung) Throat Throat Exam: Oral Mucosa [place] & Moist (Moni Yung) Pulmonary Resp Exam: Clear Bilaterally, Breath Sounds Equal, Diminished Breath Sounds ( Moni Yung) Cardiology CV Exam: Good Perfusion, Irregular (Moni Yung) Gastrointestinal/Abdomen GI Exam: Soft, Non-Tender, Bowel Sounds Present (Moni Yung) Musculoskeletal MS Exam: Joints Intact, Normal Tone (Moni Yung) Integumentary Skin Exam: Warm, Dry (Moni Yung) Extremeties Extremities Exam: Pedal Pulses Palpable, Trace Edema Extremeties Remarks right arm AV graft + thrill/bruit (Moni Yung) Neurologic Neuro Exam: Awake, Moving All Extremities Neuro Remarks slow to respond (Moni Yung) Psychiatric Psych Exam: Appropriate Responses (Moni Yung) Assessment/Plan Discussed Condition With: Patient, Relative Assessment Summary: Anemia of CKD Problem List: (1) ESRD (end stage renal disease) Plan: continue HD TTS; he is due tomorrow fluid status improved no acute renal concerns OK to dc from Nephrology point of view, has existing outpatient arrangements (2) Hyperkalemia Plan: corrected (3) HIV disease Plan: Continue anti retrovirals. (4) Anemia Plan: Epogen with dialysis. (5) Atrial fibrillation Plan: on ASA, cardizem, Lopressor given a dose of Eliquis he is refusing admission in [facility] for anticoagulation management neurology signed off, CVA work up is negative (Moni Yung) Plan patient was seen and examined. He wants to go home. Not on anticoagulation. ( Tyson Arboleda MD) Problem Qualifiers (1) Anemia: (2) Atrial fibrillation: Qualified Code: I48.2 - Chronic atrial fibrillation Moni Yung Jan 31, 2017 10:47 Tyson Arboleda MD Feb 01, 2017 11:12
[2017-01-31 12:00] VITALS: BP 190/86; PULSE 99; RESP 17; TEMP 97.3; O2SAT 94
--- NOTE | 2017-01-31 12:46 | HHI.PR ---
Subjective Remarks Sitting up on the edge of the bed, ready to go home Doesn't want home health care, states that he knows what to do Alert, oriented times 23 Complaints of right arm pain No chest pain No shortness of breath Telemetry reviewed, A. fib, heart rate 100 Objective Objective Results - Vital Signs Date Time Temp Pulse Resp B/P Pulse Ox O2 Delivery O2 Flow Rate FiO2 01/31/17 12:00 97.3 99 17 190/86 94 01/31/17 08:00 97.4 117 18 198/97 98 01/31/17 04:00 97.7 114 20 184/78 99 01/31/17 00:00 97.6 112 20 140/81 96 01/30/17 20:00 118 01/30/17 20:00 97.5 93 20 167/73 100 01/30/17 16:22 96.4 111 18 158/83 99 I/O 01/30/17 01/30/17 01/30/17 01/31/17 01/31/17 01/31/17 07:00 15:00 23:00 07:00 15:00 23:00 Intake Total 120 ml 360 ml 240 ml 120 ml Balance 120 ml 360 ml 240 ml 120 ml Intake Oral 120 ml 360 ml 240 ml 120 ml # Voids 2 0 0 2 # Bowel Movements 0 2 0 1 Result Diagram: 01/27/17 1130 01/28/17 0621 Imaging Last Impressions Brain MRI 01/27/17 1144 Signed Impressions: Service Date/Time: January 12:36 - CONCLUSION: 1. No acute hemorrhage, infarction or mass effect. 2. Atrophy and chronic small vessel ischemic change again noted. Alden Elder MD Head CT 01/27/171121 Signed Impressions: Service Date/Time: January 11:50 - CONCLUSION: Normal examination. Cyrus Mcnulty MD Chest X-Ray 01/27/171121 Signed Impressions: Service Date/Time: January 12:02 - CONCLUSION: Mild cardiomegaly with no acute cardiopulmonary disease. Alden Elder MD ROS General: Other (12 pt. review of systems completed, limited) Physical Exam Physical Exam Physical Exam GENERAL: This is a well-nourished, chronically ill-appearing male SKIN: Has a wound that is covered with a dressing to the right inner upper arm. There is no erythema, there is dried drainage on the dressing. Right chest wall is noted with dialysis catheter. HEAD: Atraumatic. Normocephalic. No temporal or scalp tenderness. EYES: Pupils equal round and reactive. Extraocular motions intact. No scleral icterus. No injection or drainage. ENT: Nose without bleeding, purulent drainage or septal hematoma. Throat without erythema, tonsillar hypertrophy or exudate. Uvula midline. Airway patent. NECK: Trachea midline. No JVD or lymphadenopathy. Supple, nontender, no meningeal signs. CARDIOVASCULAR: S1 and S2, irregularly irregular. RESPIRATORY: Diminished at bases. GASTROINTESTINAL: Abdomen soft, non-tender, nondistended. No hepato-splenomegaly , or palpable masses. No guarding. MUSCULOSKELETAL: No joint abnormalities. Bilateral lower extremity with +1 pedal edema, pedal pulses 1+. Right arm noted with dependent edema. NEUROLOGICAL: Awake, alert, oriented times 23. Poor historian. Slow to respond but otherwise back to his baseline. No focal deficit. Urinary Catheter: No Vascular Central Line Catheter: No A/P Diagnosis: (1) Altered mental status (2) TIA (transient ischemic attack) (3) ESRD (end stage renal disease) (4) HIV disease (5) Anemia (6) Atrial fibrillation (7) Hyperkalemia (8) End stage renal disease (9) Hyperkalemia (10) HTN (hypertension) (11) COPD (chronic obstructive pulmonary disease) (12) CAD (coronary artery disease) (13) DM (diabetes mellitus) (14) Chronic CHF (15) Non-compliance Assessment and Plan 66-year-old male with history of HIV, end-stage renal disease on dialysis Tuesday and Tuesday, atrial fibrillation on aspirin, recent infection to left AV graft with MRSA that required removal, status post right AV graft placement. Patient presented to emergency room with altered mental status, possible TIA, versus metabolic encephalopathy, noncompliance with hemodialysis treatment. Improved,back to baseline. Likely cause of changes metabolic, however at high risk of stroke Neurology has been consulted,input appreciated. Recommends anticoagulation, Coumadin or Eliquis, however pt. refusing. CUS okay no stenosis. Echo EF 55-60%, EEG ok encephalopathy noted Continue with aspirin -PT/OT/ST for evaluation -Patient back to baseline, has been recommended anticoagulation but he adamantly refuses. He does not want to go to SNF, where he will be receiving Coumadin and be monitored closely. It has been explained in detail with patient by neurology and attending about the risk of stroke. End-stage renal disease, noncompliant with dialysis treatment, missed 2 treatments. Found with hyperkalemia -HD tx done, doing well. A. fib with RVR Continuous cardiac telemetry Continue Coreg and Cardizem. HR uncontrolled at times, required IV Cardizem push Continue aspirin Recent infection of left upper extremity graft, positive for MRSA. Received antibiotics and required removal of graft. Most recently underwent removal of residual graft material, 12/07/2016. Status post right AV graft placement per Dr. Blakcburn on 01/25/2017 -Monitor surgical site for any infection Keep right arm elevated Hypertension, stable Continue with home medications HIV Continue home medication Diabetes, diet control, blood glucose stable. Blood glucose 75 to 90 overnight. Accu-Cheks before meals and at bedtime with insulin therapy -D/C D10w, pt. now eating Chronic CHF, stable Continue home medications Monitor for fluid overload Echocardiogram has been ordered, pending SCDs for DVT prophylaxis tax compliance manager consulted for discharge planning, patient refuses home health care Patient back to baseline. Vital signs stable. Heart rate improved, 100s. Refusing home health care and anticoagulation. Discharged home today, patient lives with sister Follow up with nephrology Diet heart healthy and renal Activity as tolerated D/W RN D/W Dr. Avila D/W pt D/W CM This patient was seen by myself and Dr. Avila, this note is written on his behalf Problem Qualifiers (1) Altered mental status: Qualified Code: R41.82 - Altered mental status, unspecified altered mental status type (2) TIA (transient ischemic attack): Qualified Code: G45.9 - Transient cerebral ischemia, unspecified type (3) Anemia: (4) Atrial fibrillation: Qualified Code: I48.2 - Chronic atrial fibrillation (5) HTN (hypertension): Qualified Code: I10 - Essential hypertension (6) COPD (chronic obstructive pulmonary disease): Qualified Code: J44.9 - Chronic obstructive pulmonary disease, unspecified COPD type (7) CAD (coronary artery disease): Qualified Code: I25.10 - Coronary artery disease involving [place] coronary artery of [place] heart without angina pectoris (8) DM (diabetes mellitus): (9) Chronic CHF: Qualified Code: I50.9 - Chronic congestive heart failure, unspecified congestive heart failure type Shanthi Alarcon Jan 31, 2017 12:46
--- NOTE | 2017-01-31 12:50 | HHI.DCPOC ---
Discharge Care Plan Diagnosis: (1) Altered mental status Your Health Problems Are: Difficulty with ADL Goals to Promote Your Health * To prevent worsening of your condition and complications * To maintain your health at the optimal level Directions to Meet Your Goals Take your medications as prescribed Follow your dietary instruction Follow activity as directed Keep your appointments as scheduled Take your immunizations and boosters as scheduled If your symptoms worsen call your PCP, if no PCP go to Urgent Care Center or Emergency Room Smoking is Dangerous to Your Health. Avoid second hand smoke Call the 24-hour hour crisis hotline for domestic abuse at [facility]. [facility] Jan 31, 2017 12:50
--- NOTE | 2017-01-31 12:51 | HHI.DS ---
Discharge Summary Admission Date Jan 27, 2017 at 17:56 Admitting Diagnosis TIA, hyperkalemia, atrial fibrillation (1) Altered mental status (2) TIA (transient ischemic attack) (3) ESRD (end stage renal disease) (4) HIV disease (5) Anemia (6) Atrial fibrillation (7) Hyperkalemia (8) End stage renal disease (9) Hyperkalemia (10) HTN (hypertension) (11) COPD (chronic obstructive pulmonary disease) (12) CAD (coronary artery disease) (13) DM (diabetes mellitus) (14) Chronic CHF (15) Non-compliance CBC/BMP: 01/27/17 1130 01/28/17 0621 Imaging Last Impressions Carotid Artery Ultrasound 01/27/17 1603 Signed Impressions: Service Date/Time: January 23:01 - CONCLUSION: Mild atherosclerotic plaquing at both carotid bifurcations. No focal high grade or hemodynamically significant stenosis is demonstrated. Indio Christopher MD Brain MRI 01/27/17 1144 Signed Impressions: Service Date/Time: January 12:36 - CONCLUSION: 1. No acute hemorrhage, infarction or mass effect. 2. Atrophy and chronic small vessel ischemic change again noted. Alden Elder MD Head CT 01/27/17 1122 Signed Impressions: Service Date/Time: January 11:50 - CONCLUSION: Normal examination. Cyrus Mcnulty MD Chest X-Ray 01/27/17 1122 Signed Impressions: Service Date/Time: January 12:02 - CONCLUSION: Mild cardiomegaly with no acute cardiopulmonary disease. Alden Elder MD Hospital Course This is a 65 year old black male with significant past medical history of COPD, ESRD, CHF, HIV, substance abuse. Previous admissions for sepsis, most recently he was in hospital for infected right AV graft that required removal and IV antibiotics. He underwent removal of residual graft to the left upper extremity 12/07/2016. After that he underwent right AV graft placement on 2016. Patient was brought into the hospital because of sudden onset of generalized weakness after he had a fall this morning. At this time, information is obtained from review of medical record, sister is no longer at the bedside. Patient is altered and unable to provide any information. Per review of records, patient woke up at 7:30 and was at his baseline. Patient's baseline is that he is slow to respond when walking and talking. Apparently she observed the patient fall backwards on the floor and when she went to help him out he was walking very slowly and also noted right-sided facial droop that was more exaggerated than usual. Apparently the patient's last dialysis treatment was on Tuesday, he has missed 2 treatments. Patient does have a history of atrial fibrillation which was evaluated during September admission by experimental outboard motors mechanic Dr. Mays. He is on beta blockers and takes aspirin 3 times a week per cardiology recommendations. Because of risk of bleeding and complications from his multiple comorbidities, no anticoagulation was recommended time as he had bleeding from right arm graft. Patient was evaluated in the emergency room, case was discussed with Dr. Ortiz from neurology. The patient was noted without any local findings, no stroke alert was called. A stat CT of the head was done that was negative. It was also recommended by neurology for the patient to receive Eliquis however he has not received it. At this time the patient is lethargic and not awake enough to take any oral medications. A brain MRI was done and this was also negative. Was noted hyperkalemic, potassium was 6.2. The rest of the laboratory workup was essentially unremarkable except for his renal indices. INR was 1.7. Patient was taken to the dialysis unit where he underwent treatment. Pt was evaluated in his room, he woke up To voice and was able to provide the name of the hospital. He was very slow to respond and there were no focal symptoms noted. Complained of back pain but otherwise denied any chest pain, no shortness of breath. Right arm was noted with some edema and surgical site from recent AV graft placement is intact. Patient was admitted for further evaluation and treatment. (1) Altered mental status (2) TIA (transient ischemic attack) (3) ESRD (end stage renal disease) (4) HIV disease (5) Anemia (6) Atrial fibrillation (7) Hyperkalemia (8) End stage renal disease (9) Hyperkalemia (10) HTN (hypertension) (11) COPD (chronic obstructive pulmonary disease) (12) CAD (coronary artery disease) (13) DM (diabetes mellitus) (14) Chronic CHF (15) Non-compliance During the course of the hospitalization, the following took place: 66-year-old male with history of HIV, end-stage renal disease on dialysis Tuesday and Tuesday, atrial fibrillation on aspirin, recent infection to left AV graft with MRSA that required removal, status post right AV graft placement. Patient presented to emergency room with altered mental status, possible TIA, versus metabolic encephalopathy, noncompliance with hemodialysis treatment. Improved,back to baseline. Likely cause of changes metabolic, however at high risk of stroke Neurology was consulted,input appreciated. Recommended anticoagulation, Coumadin or Eliquis, however pt. refused. No acute neuro findings, but pt. at high risk. CUS okay no stenosis. Echo EF 55-60%, EEG ok encephalopathy noted Continued with aspirin -PT/OT/ST for evaluation -Patient back to baseline, was recommended anticoagulation but he adamantly refused. He did not want to go to SNF, where he could receive Coumadin and be monitored closely. It was explained in detail with patient by neurology and attending about the risk of stroke. End-stage renal disease, noncompliant with dialysis treatment, missed 2 treatments. Found with hyperkalemia. Resolved after HD -HD tx done, doing well. -Nephrology consulted to manage. A. fib with RVR-improved Continuous cardiac telemetry Continue Coreg and Cardizem. HR uncontrolled at times, required IV Cardizem push Continue aspirin Recent infection of left upper extremity graft, positive for MRSA. Received antibiotics and required removal of graft. Most recently underwent removal of residual graft material, 12/07/2016. Status post right AV graft placement per Dr. Blackburn on 01/25/2017. Remained stable -Monitor surgical site for any infection Kept right arm elevated Hypertension, stable Continue with home medications HIV Continue home medication Diabetes, diet control, blood glucose stable. Blood glucose 75 to 90 overnight. Accu-Cheks before meals and at bedtime with insulin therapy - D10w initially ordered then discontinued when he started eating. Chronic CHF, stable Continue home medications Monitor for fluid overload Echocardiogram was ordered. SCDs for DVT prophylaxis franchise sales manager consulted for discharge planning, patient refused home health care Patient back to baseline. Vital signs stable. Heart rate improved, 100s. Refusing home health care and anticoagulation. Discharged home,, patient lives with sister Follow up with nephrology Diet heart healthy and renal Activity as tolerated Pt Condition on Discharge: Stable Discharge Disposition: Disch w/ Home Health Serv Discharge Instructions DIET: Follow Instructions for: Heart Healthy Diet, Diabetic Diet Activities you can perform: Weight Bearing as [place] Follow up Referrals: Nephrology PCP Follow-up Continued Medications: Acetaminophen-Codeine (Tylenol-Codeine #3) 300-30 mg Tab 1 TAB PO Q4H PRN PAIN Ref [address] (Aspirin EC) 81 Mg Tabdr 81 MG PO MoWeFr @ HS Ref 0 TAB Carvedilol (Coreg) 25 Mg Tab 25 MG PO Q12HR #60 Ref 0 TAB Denosumab Inj (Prolia Inj) 60 Mg/Ml Inj 60 MG SQ Q180D VIAL Diltiazem CD 24 HR (Cardizem CD 24 HR) 360 Mg Caper 360 MG PO DAILY #30 Ref 0 CAP Docusate Sodium (Docusate Sodium) 100 Mg Cap 100 MG PO WEEKLY ON SUNDAYS Prevent Constipation #60 Ref 0 CAP Rfjanzrrqneq-Soexaneydp-Qkbzbzkrhjlw-Tenofvir (Genvoya) [phone] Mg Tab 1 TAB PO DAILY Mgmt Viral Infection TAB Epinephrine Inj (Epinephrine Inj) 1 Mg/Ml Inj 0.3 MG SQ ONCE Give with any signs of respiratory distress. PRN ALLERGIC REACTION #1 VIAL Ergocalciferol (Drisdol) 50,000 Unit Cap 33492 UNITS PO Q7D ON SUNDAYS Nutritional Supplement CAP Fenofibrate (Fenofibrate) 145 Mg Tab 145 MG PO HS HYPERLIPIDEMIA #30 Ref 0 TAB Folic Acid (Folate) 1 Mg Tab 1 MG PO DAILY Nutritional Supplement TAB Hydrocortisone Inj (Solu-Cortef Inj) 250 Mg Inj 250 MG IV PUSH ONCE Give over 30-60 seconds. PRN ALLERGIC REACTION #1 Ref 0 VIAL Pantoprazole (Protonix) 40 Mg Tab 40 MG PO DAILY Reflux TAB Rifaximin (Xifaxan) 550 Mg Tab 550 MG PO BID HEPATITIS #60 Ref 0 TAB Sevelamer Carbonate (Renvela) 800 Mg Tab 1600 MG PO TID RENAL FAILURE #90 TAB Temazepam (Restoril) 15 Mg Cap 15 MG PO HS PRN INSOMNIA #30 Ref 0 CAP Valacyclovir (Valtrex) 1 Gm Tab 1 GM PO DAILY Mgmt Viral Infection #60 Ref 0 TAB Vancomycin Inj (Vancomycin Inj) 10 Gm Inj 1500 MG IV WITH DIALYSIS MRSA graft site infection Days 30 Ref 0 VIAL Discontinued Medications: Metoclopramide (Reglan) 5 Mg Tab 5 MG PO TIDAC TAB Gross,Shanthi G. [facility] Jan 31, 2017 12:50
== END 2017-01-31 16:33 | disposition home or self-care (01) | DRG 69 ==
LOC: NEPE 11:14 → NEDA 13:24 → NEPGCP 17:29 → OBSVTOIN 17:56 → N05A 01-28 18:16
PROVIDERS: ADMIT Specialist; ATTEND Specialist
PROC: 5A1D60Z (ICD-10-PCS; principal; 2017-01-27)
DX: G45.9 Transient cerebral ischemic attack, unspecified (principal); I13.2 Hypertensive heart and chronic kidney disease with heart failure and with stage 5 chronic kidney disease, or end stage renal disease; G93.41 Metabolic encephalopathy; N25.81 Secondary hyperparathyroidism of renal origin; N18.6 End stage renal disease; E11.22 Type 2 diabetes mellitus with diabetic chronic kidney disease; I48.2 Chronic atrial fibrillation; J44.9 Chronic obstructive pulmonary disease, unspecified; I25.10 Atherosclerotic heart disease of native coronary artery without angina pectoris; I50.9 Heart failure, unspecified; M54.9 Dorsalgia, unspecified; B19.20 Unspecified viral hepatitis C without hepatic coma; H91.93 Unspecified hearing loss, bilateral; K21.9 Gastro-esophageal reflux disease without esophagitis; K59.09 Other constipation; D63.1 Anemia in chronic kidney disease; Z21 Asymptomatic human immunodeficiency virus [HIV] infection status; M19.90 Unspecified osteoarthritis, unspecified site; Z91.19 Patient's noncompliance with other medical treatment and regimen; Z99.2 Dependence on renal dialysis; Z79.82 Long term (current) use of aspirin; Z86.14 Personal history of Methicillin resistant Staphylococcus aureus infection; W19.XXXA Unspecified fall, initial encounter
CPT/HCPCS: 70450; 70551; 71010; 80048; 82140; 82550; 82805; 82948; 84484; 85025; 85610; 90935; 93005; 93306; 93880; 95819; 96374; 96375; J1265; J1580; J1644; J1815; Q4081

== ENCOUNTER 2017-03-22 07:56 | Inpatient (IN) | payer MEDICARE, OTHER ==
[~2017-03-22] VITALS: Ht 165.1 cm; Wt 73.9 kg
[2017-03-22] VITALS (12 sets, daily range): BP systolic 124–185; BP diastolic 72–110; PULSE 84–126; RESP 14–24; TEMP 98.1–99.1; O2SAT 96–100
[~2017-03-22 07:56] MED LIST changes: +DOCU100C PO; -DOCU250C PO; -REGL5TAB PO; +REST15CA PO
--- NOTE | 2017-03-22 08:36 | RADRPT ---
EXAM DATE/TIME: 03/22/2017 08:12 [place] COMPARISON: CHEST SINGLE AP, January 27, 2017, 12:02. INDICATIONS : Cough, short of breath, altered mental status MEDICAL HISTORY : Renal insufficiency. SURGICAL HISTORY : None. ENCOUNTER: Initial ACUITY: 1 day PAIN SCORE: Non-responsive. LOCATION: Bilateral chest FINDINGS: The heart is enlarged. There is diffuse interstitial prominence suggesting interstitial edema. The ov erall appearance of the parenchyma heart are stable compared to previous exam. The patient's dialysis catheter has been removed. The visualized bony structures are grossly intact. CONCLUSION: 1. Advanced cardiomegaly and probable interstitial edema. Oscar Beaulieu MD on March 22, 2017 at 8:34 Board Certified Radiologist. This report was verified electronically.
[2017-03-22 08:39] LABS: AUTOMATED NEUTROPHIL # 2.1 TH/MM3 (1.8-7.7); BASOPHIL % 0.5 % (0.0-2.0); EOSINOPHIL % 0.2 % (0.0-4.0); HEMATOCRIT 36.7 % (39.0-51.0); HEMO FLAGS DIFF FINAL; LYMPH % 27.1 % (9.0-44.0); LYMPHOCYTE # 0.9 TH/MM3 (1.0-4.8); MEAN CELL VOLUME 115.3 FL (80.0-100.0); MEAN CORPUSCULAR HEMOGLOBIN 38.9 PG (27.0-34.0); MEAN CORPUSCULAR HGB CONC 33.8 % (32.0-36.0); MONO % 9.1 % (0.0-8.0); NEUT % 63.1 % (16.0-70.0); PLATELET COUNT 134 TH/MM3 (150-450); RED BLOOD COUNT 3.19 MIL/MM3 (4.50-5.90); WHITE BLOOD COUNT 3.3 TH/MM3 (4.0-11.0)
[2017-03-22 08:49] LABS: APTT (PATIENT) 26.6 SEC (24.3-30.1); INTERNATIONAL NORMALIZED RATIO 1.2 RATIO
--- NOTE | 2017-03-22 08:53 | PD ---
HPI Chief Complaint: Altered Mental Status Time Seen by Provider: 08:09 Travel History International Travel<30 days: No Contact w/Intl Traveler<30days: No History of Present Illness HPI Patient is a 66-year-old male with history of end-stage renal disease on hemodialysis every Tuesdays, and Saturdays, COPD, HIV, CHF, substance abuse, TIA, diabetes, history of A. fib. As per EMS, patient lives at home with his sister who is his caregiver. Sister reports the patient has been not acting like himself since after his dialysis on Tuesday. Reports that patient has been acting more altered than normal, reports that she tried to wake patient up to go to dialysis today, reports the patient appeared lethargic. Patient at this time is alert and oriented 3, reports that he has not been feeling well for the past few days, reports that he has been feeling weak, reports that he has had a nonproductive cough. Patient at this time denies any headache or dizziness. Patient denies any chest pain, reports shortness of breath and coughing. Patient denies any fevers or chills. PFSH Past Medical History ADHD: No Arthritis: Yes (SPINAL ) Asthma: Yes Autoimmune Disease: Yes Blood Disorders: Yes (HIV) Anxiety: No Depression: No Heart Rhythm Problems: No Cancer: No Cardiovascular Problems: Yes High Cholesterol: Yes Chemotherapy: No Chest Pain: No Congestive Heart Failure: Yes COPD: Yes Cerebrovascular Accident: No Diabetes: Yes Patient Takes Glucophage: No Dialysis: Yes (,,) Diminished Hearing: Yes (BILATERAL) Endocrine: Yes Gastrointestinal Disorders: Yes (constipation) GERD: Yes Glaucoma: No Genitourinary: Yes (ESRD, DIALYSIS --TUE) Headaches: Yes Hepatitis: Yes (HEP C) Hiatal Hernia: No Hypertension: Yes Immune Disorder: Yes (HIV POSITIVE) Implanted Vascular Access Dvce: Yes Kidney Stones: No Musculoskeletal: Yes Neurologic: Yes (AMS AFTER DIALYSIS ) Psychiatric: No Respiratory: Yes (ASTHMA) Immunizations Current: Yes Migraines: No Myocardial Infarction: No Radiation Therapy: No Renal Failure: Yes (ESRD) Seizures: No Sickle Cell Disease: No Sleep Apnea: No Thyroid Disease: No Ulcer: No Past Surgical History Abdominal Surgery: No AICD: No Appendectomy: No Arteriovenous Shunt: Yes (LUE AV GRAFT) Body Medical Devices: LEFT ARM DIALYSIS FISTULA, L VAS CATH CHEST Cardiac Surgery: No Cholecystectomy: No Ear Surgery: No Endocrine Surgery: No Eye Surgery: No Genitourinary Surgery: No Gynecologic Surgery: No Insulin Pump: No Joint Replacement: No Neurologic Surgery: No Oral Surgery: No Pacemaker: No Thoracic Surgery: No Other Surgery: Yes (LUE AV GRAFT; X 6) Social History Alcohol Use: No Tobacco Use: No Substance Use: Yes (COCAINE, HEROINE, 20 YEARS AGO) Allergies-Medications (Allergen,Severity, Reaction): Coded Allergies: *MDRO Multi-Drug Resistant Organism (Unverified Adverse Reaction, Unknown , 01/25/17) MRSA (genital) - 2004 MRSA PCR screen positive - 12/29/15, 09/09/16 MRSA (blood-09/08/16) Reported Meds & Prescriptions Reported Meds & Active Scripts Active Renvela (Sevelamer Carbonate) 800 Mg Tab 1,600 Mg PO TID Xifaxan (Rifaximin) 550 Mg Tab 550 Mg PO BID Epinephrine Inj 1 Mg/Ml Inj 0.3 Mg SQ ONCE PRN Give with any signs of respiratory distress. Solu-Cortef Inj (Hydrocortisone Sodium Succinate) 250 Mg Inj 250 Mg IV PUSH ONCE PRN Give over 30-60 seconds. Vancomycin Inj (Vancomycin HCl) 10 Gm Inj 1,500 Mg IV WITH DIALYSIS 30 Days Reported Restoril (Temazepam) 15 Mg Cap 15 Mg PO HS PRN Fenofibrate 145 Mg Tab 145 Mg PO HS Aspirin EC (Aspirin) 81 Mg Tabdr 81 Mg PO MOWEFR @ HS Docusate Sodium 100 Mg Cap 100 Mg PO WEEKLY ON SUNDAYS Coreg (Carvedilol) 25 Mg Tab 25 Mg PO Q12HR Tylenol-Codeine #3 (Acetaminophen-Codeine) 300-30 mg Tab 1 Tab PO Q4H PRN Cardizem CD 24 HR (Diltiazem CD 24 HR) 360 Mg Caper 360 Mg PO DAILY Valtrex (Valacyclovir HCl) 1 Gm Tab 1 Gm PO DAILY Prolia Inj (Denosumab) 60 Mg/Ml Inj 60 Mg SQ Q180D Genvoya (Wvouxpudklwz-Xmxvzskogy-Phkxfaokzkpm-Tenofvir) [phone] Mg Tab 1 Tab PO DAILY Folate (Folic Acid) 1 Mg Tab 1 Mg PO DAILY Drisdol (Ergocalciferol) 50,000 Unit Cap 50,000 Units PO Q7D ON SUNDAYS Protonix (Pantoprazole Sodium) 40 Mg Tab 40 Mg PO DAILY Review of Systems General / Constitutional: No: Fever Eyes: No: Visual changes HENT: No: Headaches Cardiovascular: No: Chest Pain or Discomfort Respiratory: Positive: Cough, Shortness of Breath, Wheezing Gastrointestinal: No: Abdominal Pain Genitourinary: No: Dysuria Musculoskeletal: No: Pain Skin: No Rash Neurologic: Positive: Weakness Psychiatric: No: Depression Endocrine: No: Polydipsia Hematologic/Lymphatic: No: Easy Bruising Physical Exam Narrative GENERAL: Moderate distress SKIN: Focused skin assessment warm/dry. HEAD: Atraumatic. Normocephalic. EYES: Pupils equal and round. No scleral icterus. No injection or drainage. ENT: No nasal bleeding or discharge. Mucous membranes pink and moist. NECK: Trachea midline. No JVD. CARDIOVASCULAR: Tachycardic, irregular irregular rhythm. No murmur appreciated. RESPIRATORY: No accessory muscle use. Patient with scattered rales throughout lungs GASTROINTESTINAL: Abdomen soft, non-tender, nondistended. Hepatic and splenic margins not palpable. MUSCULOSKELETAL: No obvious deformities. No clubbing. No cyanosis. No edema. NEUROLOGICAL: Awake and alert. No obvious cranial nerve deficits. Motor grossly within normal limits. Normal speech. PSYCHIATRIC: Patient with slow affect Data Data Last Documented VS Vital Signs Date Time Temp Pulse Resp B/P Pulse Ox O2 Delivery O2 Flow Rate FiO2 03/22/17 09:34 84 18 124/72 BiPAP 35 03/22/17 09:32 96 2 03/22/17 08:05 98.7 Orders Electrocardiogram (03/22/17 08:08) Complete Blood Count With Diff (03/22/17 08:08) Comprehensive Metabolic Panel (03/22/17 08:08) Prothrombin Time / Inr (Pt) (03/22/17 08:08) Act Partial Throm Time (Ptt) (03/22/17 08:08) Lactic Acid Sepsis Protocol (03/22/17 08:08) Magnesium (Mg) (03/22/17 08:08) Lipase (03/22/17 08:08) Ckmb (Isoenzyme) Profile (03/22/17 08:08) Troponin I (03/22/17 08:08) Urinalysis - C+S If Indicated (03/22/17 08:08) Blood Culture (03/22/17 08:08) Chest, Single Ap (03/22/17 08:08) Ecg Monitoring (03/22/17 08:10) Bilateral Bp Monitoring (03/22/17 08:10) Iv Access Insert/Monitor (03/22/17 08:10) Oximetry (03/22/17 08:10) Diltiazem Inj (Cardizem Inj) (03/22/17 09:00) Arterial Blood Gas (Abg) (03/22/17 ) Consult Nephrology (03/22/17 ) (Hub Use Only)Inp Phy Cons/Ref (03/22/17 ) Resp Bipap / Cpap Non Invas Vt (03/22/17 ) Diltiazem (Cardizem) (03/22/17 10:30) Piperacil-Tazo 2.25 Gm Premix (Zosyn 2.2 (03/22/17 11:00) Vancomycin Inj (Vancomycin Inj) (03/22/17 11:00) CKMB (03/22/17 09:25) CKMB% (03/22/17 09:25) Admit Order (Ed Use Only) (03/22/17 11:31) Labs Laboratory Tests Test 03/22/17 03/22/17 03/22/17 08:15 09:25 10:22 White Blood Count 3.3 TH/MM3 Red Blood Count 3.19 MIL/MM3 Hemoglobin 12.4 GM/DL Hematocrit 36.7 % Mean Corpuscular Volume 115.3 FL Mean Corpuscular Hemoglobin 38.9 PG Mean Corpuscular Hemoglobin 33.8 % Concent Red Cell Distribution Width 16.0 % Platelet Count 134 TH/MM3 Mean Platelet Volume 9.1 FL Neutrophils (%) (Auto) 63.1 % Lymphocytes (%) (Auto) 27.1 % Monocytes (%) (Auto) 9.1 % Eosinophils (%) (Auto) 0.2 % Basophils (%) (Auto) 0.5 % Neutrophils # (Auto) 2.1 TH/MM3 Lymphocytes # (Auto) 0.9 TH/MM3 Monocytes # (Auto) 0.3 TH/MM3 Eosinophils # (Auto) 0.0 TH/MM3 Basophils # (Auto) 0.0 TH/MM3 CBC Comment DIFF FINAL Differential Comment Prothrombin Time 13.0 SEC Prothromb Time International 1.2 RATIO Ratio Activated Partial 26.6 SEC Thromboplast Time Lactic Acid Level 1.0 mmol/L Sodium Level 138 MEQ/L Potassium Level 5.9 MEQ/L Chloride Level 101 MEQ/L Carbon Dioxide Level 23.5 MEQ/L Anion Gap 14 MEQ/L Blood Urea Nitrogen 85 MG/DL Creatinine 10.47 MG/DL Estimat Glomerular Filtration 6 ML/MIN Rate Random Glucose 86 MG/DL Calcium Level 8.3 MG/DL Magnesium Level 2.5 MG/DL Total Bilirubin 0.7 MG/DL Aspartate Amino Transf 35 U/L (AST/SGOT) Alanine Aminotransferase 18 U/L (ALT/SGPT) Alkaline Phosphatase 117 U/L Total Creatine Kinase 271 U/L Creatine Kinase MB 7.8 NG/ML Troponin I 0.05 NG/ML Total Protein 7.7 GM/DL Albumin 3.4 GM/DL Lipase 412 U/L Blood Gas Puncture Site LT RADIAL Blood Gas Patient Temperature 98.6 Blood Gas HCO3 21 mmol/L Blood Gas Base Excess -5.2 mmol/L Blood Gas Oxygen Saturation 94 % Arterial Blood pH 7.28 Arterial Blood Partial 46 mmHg Pressure CO2 Arterial Blood Partial 103 mmHg Pressure O2 Arterial Blood Oxygen Content 14.8 Vol % Arterial Blood 1.3 % Carboxyhemoglobin Arterial Blood Methemoglobin 1.2 % Blood Gas Hemoglobin 11.1 G/DL Oxygen Delivery Device BIPAP Blood Gas Ventilator Setting 15/+5/35% Blood Gas Inspired Oxygen 35 % [facility] Medical Decision Making Medical Screen Exam Complete: Yes Emergency Medical Condition: Yes Interpretation(s) [place]KG [place] 0832: A flutter at 113 bpm, qt/qtc: 331/398, nonspecific st and t wave changes Vital Signs Date Time Temp Pulse Resp B/P Pulse Ox O2 Delivery O2 Flow Rate FiO2 03/22/17 08:35 100 Nasal Cannula 2 03/22/17 08:27 113 100 Nasal Cannula 2 03/22/17 08:05 98.7 113 14 134/92 100 Differential Diagnosis Electrolyte abnormality, pneumonia, CHF exacerbation, ACS, arrhythmia Narrative Course Patient is a 66-year-old male who presents to emergency room for evaluation of lethargy. As per patient's sister who is his area manager, been acting like his normal self since Tuesday. Reports that he has been coughing, reports a nonproductive cough and generalized weakness. Patient was supposed to go to dialysis today, has not had dialysis yet as he was sent directly to the emergency room for evaluation. Patient was placed on a director of cardiac cath lab upon arrival to the emergency room, patient's heart rate in the 113's, EKG was obtained, patient currently in A. flutter rhythm at 113 beats for minute, plan to give IV Cardizem for rate control. X-ray of the chest ordered to evaluate for possible pneumonia, labs ordered including lactate and blood cultures ordered as well Plan to continue to monitor on director of cardiac cath lab Last Impressions Chest X-Ray 03/22/17 0808 Signed Impressions: Service Date/Time: Wednesday, March 22, 2017 08:12 - CONCLUSION: 1. Advanced cardiomegaly and probable interstitial edema. Oscar Beaulieu MD Patient appears fluid overloaded on his x-ray, patient does sound wet on exam, he is aneuric, plan to place patient on BIPAP Case reviewed with patient's glass wool blanket machine feeder Dr. Arboleda as patient will need dialysis today Patient re-evaluated, doing well on bipap at this time 10:58am: Patient will go to dialysis today, pt's pH is 7.28 - unsure why he is acidotic, wbc: 3.3, lactic acid 1.0, patient has been pancultured and dose of vanoco and zosyn ordered to be given during dialysis as patient is going to dialysis now. Pts pcp Dr. Tera Silva, will admit to [facility] case reviewed with Dr. Muro who accepts pt to service Diagnosis Primary Impression: Pulmonary edema Additional Impressions: Generalized weakness A-fib Admitting Information Admitting Physician Requests: Observation Hermila Anderson DO Mar 22, 2017 08:53
[2017-03-22] MEDS ORDERED: DILTIAZEM HCL 25 MG/5 ML VIAL IV PUSH ONE (09:00)
[2017-03-22] MEDS ORDERED: DILTIAZEM HCL 30 MG TAB PO ONE (10:30)
[2017-03-22 10:34] LABS: BLOOD GAS BASE EXCESS -5.2 mmol/L (-2-2); BLOOD GAS CARBOXYHEMOGLOBIN 1.3 % (0-4); BLOOD GAS HCO3 21 mmol/L (22-26); BLOOD GAS METHEMOGLOBIN 1.2 % (0-2); BLOOD GAS O2 HGB SATURATION 94 % (90-100); BLOOD GAS OXYGEN CONTENT 14.8 Vol % (12.0-20.0); BLOOD GAS PCO2 46 mmHg (38-42); BLOOD GAS PO2 103 mmHg (61-120); BLOOD GAS TOTAL HGB 11.1 G/DL (12.0-16.0); CRITICAL VALUE YES; TEMP CORR TO 98.6
[2017-03-22 10:35] LABS: DRAW SITE LT RADIAL; FIO2 35 %; NUMBER OF ARTERIAL PUNCTURES 1; OXYGEN DEVICE BIPAP; STAT YES; ULNAR PULSE PRESENT; VENT SETTINGS 15/+5/35%
[2017-03-22 10:35] LABS: ALT (GPT) 18 U/L (12-78); ANION GAP 14 MEQ/L (5-15); AST (GOT) 35 U/L (15-37); BICARBONATE 23.5 MEQ/L (21.0-32.0); CHLORIDE 101 MEQ/L (98-107); GLOMERULAR FILTRATION RATE 6 ML/MIN (>89); MAGNESIUM 2.5 MG/DL (1.5-2.5); POTASSIUM 5.9 MEQ/L (3.5-5.1); SODIUM (NA) 138 MEQ/L (136-145)
[2017-03-22 10:38] LABS: ALKALINE PHOSPHATASE 117 U/L (45-117); CREATINE KINASE 271 U/L (39-308); TOTAL BILIRUBIN ADULT 0.7 MG/DL (0.2-1.0)
[2017-03-22 10:48] LABS: BLOOD UREA NITROGEN 85 MG/DL (7-18)
[2017-03-22] MEDS ORDERED: PIPERACIL-TAZO 2.25 GM PREMIX 50 ML IV ONE (11:00)
[2017-03-22] MEDS ORDERED: VANCOMYCIN INJ 1,000 MG in SODIUM CHLOR 0.9% 250 ML INJ 250 ML IV ONE (11:00)
[2017-03-22 11:04] LABS: CKMB 7.8 NG/ML (0.5-3.6)
[2017-03-22] MEDS ORDERED: DEXT 5%-NACL 0.9% 1000 ML INJ 1,000 ML IV SCH (11:45)
[2017-03-22] MEDS ORDERED: SENNOSIDES 8.6 MG TAB PO PRN (11:45)
[2017-03-22] MEDS ORDERED: LACTULOSE SYRUP 20 GM/30 ML CUP PO PRN (11:45)
[2017-03-22] MEDS ORDERED: ACETAMINOPHEN 325 MG TAB PO PRN ×2 (11:45→15:15)
[2017-03-22] MEDS ORDERED: NALOXONE HCL 0.4 MG/ML AMP IV PRN (11:45)
[2017-03-22] MEDS ORDERED: BISACODYL 10 MG SUPP RECTAL PRN (11:45)
[2017-03-22] MEDS ORDERED: ONDANSETRON HCL 4 MG/2 ML VIAL IVP PRN (11:45)
[2017-03-22] MEDS ORDERED: MAGNESIUM HYDROXIDE SUSP 30 ML CUP PO PRN (11:45)
--- NOTE | 2017-03-22 11:57 | PD.CONS ---
HPI Service Nephrology Consult Requested By Reason for Consult ESRD on HD, fluid overload Primary Care Physician Tera Silva, DO History of Present Illness This is a 66 y/o AAM patient who was brought to ER by his sister who reports he has had altered mental status since Tuesday after dialysis. PMH of ESRD, normal TTS HD schedule. Other PMH of COPD, HIV, CHF, substance abuse, TIA, diabetes, history of A. fib. Chest Xray showing fluid overload, he was placed on BiPap and he was taken to dialysis. K is 5.9 today. He is confused, has involuntary tremors. He is a full code. (Moni Yung) Review of Systems ROS Limitations: Clinical Condition, Altered Mental Status Constitutional: COMPLAINS OF: Fatigue Respiratory: COMPLAINS OF: Shortness of breath Cardiovascular: COMPLAINS OF: Dyspnea on Exertion, DENIES: Chest pain, Syncope , Lower Extremity Edema Gastrointestinal: DENIES: Abdominal pain Neurologic: COMPLAINS OF: Tremor (Moni Yung) Past Family Social History Allergies: Coded Allergies: *MDRO Multi-Drug Resistant Organism (Unverified Adverse Reaction, Unknown , 01/25/17) MRSA (genital) - 2004 MRSA PCR screen positive - 12/29/15, 09/09/16 MRSA (blood-09/08/16) Past Medical History ESRD on HD TTS COPD HIV CHF substance abuse hx of TIA diabetes history of A. fib. Past Surgical History AVF with revision Reported Medications Restoril (Temazepam) 15 Mg Cap 15 Mg PO HS PRN Fenofibrate 145 Mg Tab 145 Mg PO HS Aspirin EC (Aspirin) 81 Mg Tabdr 81 Mg PO MOWEFR @ HS Docusate Sodium 100 Mg Cap 100 Mg PO WEEKLY ON SUNDAYS Coreg (Carvedilol) 25 Mg Tab 25 Mg PO Q12HR Tylenol-Codeine #3 (Acetaminophen-Codeine) 300-30 mg Tab 1 Tab PO Q4H PRN Cardizem CD 24 HR (Diltiazem CD 24 HR) 360 Mg Caper 360 Mg PO DAILY Valtrex (Valacyclovir HCl) 1 Gm Tab 1 Gm PO DAILY Prolia Inj (Denosumab) 60 Mg/Ml Inj 60 Mg SQ Q180D Genvoya (Sdhgbsmtrttq-Ypctgjejcj-Arqmnrmsygag-Tenofvir) [phone] Mg Tab 1 Tab PO DAILY Folate (Folic Acid) 1 Mg Tab 1 Mg PO DAILY Drisdol (Ergocalciferol) 50,000 Unit Cap 50,000 Units PO Q7D ON SUNDAYS Protonix (Pantoprazole Sodium) 40 Mg Tab 40 Mg PO DAILY Active Ordered Medications Last Impressions Chest X-Ray 03/22/17 0808 Signed Impressions: Service Date/Time: Wednesday, March 22, 2017 08:12 - CONCLUSION: 1. Advanced cardiomegaly and probable interstitial edema. Oscar Beaulieu MD Family History no hx of renal disorders Social History lives with sister hx of IVDA he is a former smoker unemployed full code (Dilshad,Moni Dex. [employer]) Physical Exam Vital Signs Vital Signs Date Time Temp Pulse Resp B/P Pulse Ox O2 Delivery O2 Flow Rate FiO2 03/22/17 09:34 84 18 124/72 BiPAP 35 03/22/17 09:32 111 17 140/93 96 Nasal Cannula 2 03/22/17 09:30 97 BiPAP 35 03/22/17 09:30 97 35 03/22/17 08:35 100 Nasal Cannula 2 03/22/17 08:27 113 100 Nasal Cannula 2 03/22/17 08:05 98.7 113 14 134/92 100 Physical Exam GENERAL: generalized muscle wasting, patient is awake but minimally responsive; he has some muscle twitching SKIN: Warm and dry. HEAD: Normocephalic. EYES: No scleral icterus. No injection or drainage. NECK: Supple, trachea midline. No JVD or lymphadenopathy. CARDIOVASCULAR: irregular tachycardia. RESPIRATORY: Breath sounds equal bilaterally. he is visibly dyspneic and on Bipap, + rales on exam GASTROINTESTINAL: Abdomen soft, non-tender, nondistended. MUSCULOSKELETAL: No cyanosis, or edema. BACK: Nontender without obvious deformity. No CVA tenderness. Laboratory Laboratory Tests Test 03/22/17 03/22/17 03/22/17 08:15 09:25 10:22 White Blood Count 3.3 Red Blood Count 3.19 Hemoglobin 12.4 Hematocrit 36.7 Mean Corpuscular Volume 115.3 Mean Corpuscular Hemoglobin 38.9 Mean Corpuscular Hemoglobin 33.8 Concent Red Cell Distribution Width 16.0 Platelet Count 134 Mean Platelet Volume 9.1 Neutrophils (%) (Auto) 63.1 Lymphocytes (%) (Auto) 27.1 Monocytes (%) (Auto) 9.1 Eosinophils (%) (Auto) 0.2 Basophils (%) (Auto) 0.5 Neutrophils # (Auto) 2.1 Lymphocytes # (Auto) 0.9 Monocytes # (Auto) 0.3 Eosinophils # (Auto) 0.0 Basophils # (Auto) 0.0 CBC Comment DIFF FINAL Differential Comment Prothrombin Time 13.0 Prothromb Time International 1.2 Ratio Activated Partial 26.6 Thromboplast Time Lactic Acid Level 1.0 Sodium Level 138 Potassium Level 5.9 Chloride Level 101 Carbon Dioxide Level 23.5 Anion Gap 14 Blood Urea Nitrogen 85 Creatinine 10.47 Estimat Glomerular Filtration 6 Rate Random Glucose 86 Calcium Level 8.3 Magnesium Level 2.5 Total Bilirubin 0.7 Aspartate Amino Transf 35 (AST/SGOT) Alanine Aminotransferase 18 (ALT/SGPT) Alkaline Phosphatase 117 Total Creatine Kinase 271 Creatine Kinase MB 7.8 Troponin I 0.05 Total Protein 7.7 Albumin 3.4 Lipase 412 Blood Gas Puncture Site LT RADIAL Blood Gas Patient Temperature 98.6 Blood Gas HCO3 21 Blood Gas Base Excess -5.2 Blood Gas Oxygen Saturation 94 Arterial Blood pH 7.28 Arterial Blood Partial 46 Pressure CO2 Arterial Blood Partial 103 Pressure O2 Arterial Blood Oxygen Content 14.8 Arterial Blood 1.3 Carboxyhemoglobin Arterial Blood Methemoglobin 1.2 Blood Gas Hemoglobin 11.1 Oxygen Delivery Device BIPAP Blood Gas Ventilator Setting 15/+5/35% Blood Gas Inspired Oxygen 35 Date/Time Procedure Status Source Growth 03/22/17 08:15 Aerobic Blood Culture Received Blood Peripheral Pending 03/22/17 08:15 Anaerobic Blood Culture Received Blood Peripheral Pending (Moni Yung) Result Diagram: 03/22/17 0815 03/22/17 0925 Imaging Last 72 hours Impressions Chest X-Ray 03/22/17 0808 Signed Impressions: Service Date/Time: Wednesday, March 22, 2017 08:12 - CONCLUSION: 1. Advanced cardiomegaly and probable interstitial edema. Oscar Beaulieu MD (Moni Yung) Assessment and Plan Problem List: (1) Dependent on hemodialysis Plan: seen during dialysis on a 1K, 350 BFR, goal 3-4L or as tolerated repeat K level in am avoid IVF (I will stop current order), avoid gadolinium has functioning AVF for dialysis high protein diet (2) SOB (shortness of breath) Plan: may be due to fluid overload UF as tolerated with dialysis (3) Encephalopathy Plan: may be due to infection continue supportive care (4) Hyperkalemia Plan: dialyzed on a 1K bath repeat K tomorrow (5) Anemia Plan: Epogen with HD (6) HIV disease Plan: resume HAART (Moni Yung) Assessment and Plan patient was seen and examined during dialysis. Admitted with shortness of breath , hyperkalemia and encephalopathy. He also appears to be having involuntary myoclonic movements of the whole body. Dialysis today on 1K. UF about 3 liters. AVF in the right arm is cannulated. Good blood flow. Continue to monitor his progress. Reviewed his medication profile. It is noted that he is on Denosumab. May be for osteoporosis? It can cause hypocalcemia. His serum corrected Ca is 8.78 ( Tyson Arboleda MD) Moni Yung Mar 22, 2017 11:57 Tyson Arboleda MD Mar 22, 2017 15:19
[2017-03-22] MEDS: HEPARIN SODIUM - SQ 10,000 UNITS/ML VIAL SQ SCH (13:00)
[2017-03-22] MEDS ORDERED: DIATRIZOATE MEGLUM/DIATRIZOATE SOD 9 ML CUP PO ONE (13:00)
[2017-03-22] MEDS ORDERED: SODIUM CHLOR 0.9% 1000 ML INJ 1,000 ML IV PRN ×3 (15:04)
[2017-03-22] MEDS ORDERED: ONDANSETRON HCL 4 MG/2 ML VIAL IV PRN (15:15)
[2017-03-22] MEDS ORDERED: cloNIDine HCL 0.1 MG TAB PO PRN (15:15)
[2017-03-22] MEDS ORDERED: MANNITOL 12.5 GM/50 ML VIAL IV PRN (15:15)
[2017-03-22] MEDS ORDERED: GENTAMICIN SULFATE (DIALYSIS USE ONLY) 20 MG/2 ML VIAL IV PRN (15:15)
[2017-03-22] MEDS ORDERED: diphenhydrAMINE HCL 25 MG CAP PO PRN (15:15)
[2017-03-22] MEDS ORDERED: HEPARIN SODIUM - IV 10,000 UNITS/10 ML VIAL PRN (15:15)
[2017-03-22] MEDS ORDERED: ALBUMIN HUMAN 25% 25 GM/100 ML BAGP IV PRN (15:15)
[2017-03-22] MEDS ORDERED: HEPARIN SODIUM - IV 10,000 UNITS/10 ML VIAL IVF PRN (15:15)
[2017-03-22] MEDS ORDERED: SODIUM CHLORIDE 0.9% FLUSH 10 ML FLUSH IV FLUSH PRN (15:15)
[2017-03-22] MEDS ORDERED: NITROGLYCERIN 0.4 MG SL 25 TABS/BTL SL PRN (15:15)
[2017-03-22] MEDS ORDERED: ERGO1CAP30 PO (15:28)
[2017-03-22] MEDS ORDERED: FOLI1TAB6 PO (15:28)
--- NOTE | 2017-03-22 17:10 | HHI.HP ---
HPI Service [facility] Primary Care Physician Tera Silva, DO Admission Diagnosis acidosis, chf exacerbation Diagnoses: Chief Complaint: altered mental status Travel History International Travel<30 Days: No Contact w/Intl Traveler <30 Da: No History of Present Illness This is a 65 year old black male with significant past medical history of COPD, ESRD, CHF, HIV, substance abuse, sepsis secondary to infected right AVF that was removed. Recent admission in January for TIA. Pt. is on hemodialysis every Tuesdays, and Saturdays. Per ED report, pt's sister reported he was not acting right after his HD treatment on Tuesday. Today, she tried to wake patient up to go to dialysis and he appeared lethargic. Reported to ED physician, that he was not feeling well, was weak, had a non productive cough. Patient is a 66-year-old male who presents to emergency room for evaluation of lethargy. As per patient's sister who is his can striper, been acting like his normal self since Tuesday. Reports that he has been coughing, reports a nonproductive cough and generalized weakness. Patient was supposed to go to dialysis today, has not had dialysis yet as he was sent directly to the emergency room for evaluation. Pt. was noted tachycardic, aflutter rhythm. Has received Cardizem 30 mg PO. CXR showed advanced cardiomegaly and probable interstitial edema. He noted with involuntary tremors. ABGs done, he was acidotic. Lactic acid 1. He was pancultured and Vanco and Zosyn were given. He was put on BIPAP. Nephrology was consulted and he was taken for HD. He is back in the ED waiting for ICU bed. He is awake, BIPAP in place. Remains tachycardic. Sats 98. Denies CP, some SOB. Has a cough. Pt. is admitted for further evaluation and treatment. 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 Solu-Cortef Inj (Hydrocortisone Sodium Succinate) 250 Mg Inj 250 Mg IV PUSH ONCE PRN Give over 30-60 seconds. Vancomycin Inj (Vancomycin HCl) 10 Gm Inj 1,500 Mg IV WITH DIALYSIS 30 Days Reported Ergocalciferol 50,000 Unit Cap 50,000 Units PO Q7D ON SUNDAYS Folic Acid 1 Mg Tablet 1 Mg PO DAILY Restoril (Temazepam) 15 Mg Cap 15 Mg PO HS PRN Fenofibrate 145 Mg Tab 145 Mg PO HS Aspirin EC (Aspirin) 81 Mg Tabdr 81 Mg PO MOWEFR @ HS Docusate Sodium 100 Mg Cap 100 Mg PO WEEKLY ON SUNDAYS Coreg (Carvedilol) 25 Mg Tab 25 Mg PO Q12HR Tylenol-Codeine #3 (Acetaminophen-Codeine) 300-30 mg Tab 1 Tab PO Q4H PRN Cardizem CD 24 HR (Diltiazem CD 24 HR) 360 Mg Caper 360 Mg PO DAILY Valtrex (Valacyclovir HCl) 1 Gm Tab 1 Gm PO DAILY Prolia Inj (Denosumab) 60 Mg/Ml Inj 60 Mg SQ Q180D Genvoya (Gpqfiqowskqx-Ccyegtklty-Aifwzejwzkwc-Tenofvir) [phone] Mg Tab 1 Tab PO DAILY Protonix (Pantoprazole Sodium) 40 Mg Tab 40 Mg PO DAILY Allergies: Coded Allergies: *MDRO Multi-Drug Resistant Organism (Unverified Adverse Reaction, Unknown , 01/25/17) MRSA (genital) - 2004 MRSA PCR screen positive - 12/29/15, 09/09/16 MRSA (blood-09/08/16) Active Ordered Medications Inpatient Medications Acetaminophen (Tylenol) 650 mg UNSCH PRN PO for headach, pain, temp > 101F; Start 03/22/17 at 15:15 Albumin Human (Albumin 25% Inj) 25 gm UNSCH PRN IV WITH DIALYSIS; Start at 15:15 Bisacodyl (Dulcolax Supp) 10 mg DAILY PRN RECTAL SEVERE CONSITIPATION; Start at 11:45 Clonidine (Catapres) 0.1 mg UNSCH PRN PO for BP > 180/100 X 2 readings; Start 03/22/17 at 15:15 Dextrose/Sodium Chloride (D5W-NS 1000 ml Inj) 1,000 ml @ 30 mls/hr Q24H IV ; Start 03/22/17 at 11:45; Stop 03/22/17 at 11:57; Status DC Diatrizoate Meglum/ Diatrizoate Sod ( Gastroview Liq) 18 ml ONCE ONCE PO ; Start 03/22/17 at 13:00; Stop 03/22/17 at 13:01; Status DC Diltiazem HCl (Cardizem Inj) 19 mg BOLUS ONCE IV PUSH Last administered on 03/22 09:22; Start 03/22/17 at 09:00; Stop 03/22/17 at 09:01; Status DC Diltiazem HCl 30 mg 30 mg ONCE ONCE PO Last administered on 03/22/17 11:22; Start 03/22/17 at 10:30; Stop 03/22/17 at 10:36; Status DC Diphenhydramine HCl (Benadryl) 25 mg UNSCH PRN PO for hives/itching/anaphylaxis ; Start 03/22/17 at 15:15 Gelatin (Gelfoam 12 Mm/7 Mm Top) 1 foam UNSCH PRN TOP SEE LABEL COMMENTS; Start 03/22/17 at 15:15 Gentamicin Sulfate (Gentamicin (Dialysis) Inj) 20 mg UNSCH PRN IV WITH DIALYSIS ; Start 03/22/17 at 15:15 Heparin Sodium (Porcine) (Heparin Inj) UNSCH PRN .XX WITH DIALYSIS; Start 03/22 at 15:15 Heparin Sodium (Porcine) 8000 units 8,000 units UNSCH PRN IVF WITH DIALYSIS; Start 03/22/17 at 15:15 Lactulose 30 ml 30 ml DAILY PRN PO SEVERE CONSITIPATION; Start 03/22/17 at 11:45 Magnesium Hydroxide (Milk Of Magnesia Liq) 30 ml Q12H PRN PO MILD - MODERATE CONSTIPATION; Start 03/22/17 at 11:45 Mannitol (Mannitol Inj) 12.5 gm UNSCH PRN IV WITH DIALYSIS; Start 03/22/17 at 15 :15 Naloxone HCl (Narcan Inj) 0.4 mg UNSCH PRN IV SEE LABEL COMMENTS; Start at 11:45 Nitroglycerin (Nitrostat Sl) 0.4 mg UNSCH PRN SL CHEST PAIN; Start 03/22/17 at 15:15 Ondansetron HCl (Zofran Inj) 4 mg UNSCH PRN IV WITH DIALYSIS; Start 03/22/17 at 15:15 Piperacillin Sod/ Tazobactam Sod 50 ml @ 100 mls/hr ONCE ONCE IV Last administered on 03/22/17 17:05; Start 03/22/17 at 11:00; Stop 03/22/17 at 11:29; Status DC Senna/Docusate Sodium (Munira-Colace) 1 tab BID PO ; Start 03/22/17 at 21:00 Sennosides (Senokot) 17.2 mg Q12H PRN PO MODERATE - SEVERE CONSTIPATION; Start 03/22/17 at 11:45 Sodium Chloride (NS 1000 ml Inj) 1,000 ml @ 0 mls/hr Q0M PRN IV WITH DIALYSIS; Start 03/22/17 at 15:04 Sodium Chloride (NS Flush) 5 ml UNSCH PRN IV FLUSH WITH DIALYSIS; Start at 15:15 Vancomycin HCl/ Sodium Chloride (Vancomycin Inj/ NS 250 ml Inj) 250 ml @ 250 mls/hr ONCE ONCE IV Last administered on 03/22/17 15:27; Start 03/22/17 at 11: 00; Stop 03/22/17 at 11:59; Status DC Family History Unable to obtain Social History Patient lives with sister, no alcohol, no substance abuse, no tobacco abuse Physical Exam Vital Signs Vital Signs Date Time Temp Pulse Resp B/P Pulse Ox O2 Delivery O2 Flow Rate FiO2 03/22/17 15:11 98 35 03/22/17 15:09 126 15 154/97 99 BiPAP 35 03/22/17 11:47 96 50 03/22/17 09:34 84 18 124/72 BiPAP 35 03/22/17 09:32 111 17 140/93 96 Nasal Cannula 2 03/22/17 09:30 97 BiPAP 35 03/22/17 09:30 97 35 03/22/17 08:35 100 Nasal Cannula 2 03/22/17 08:27 113 100 Nasal Cannula 2 03/22/17 08:05 98.7 113 14 134/92 100 Physical Exam GENERAL: This is a well-nourished, male pt. Currently on BIPAP SKIN: No rashes, ecchymoses or lesions. Cool and dry. HEAD: Atraumatic. Normocephalic. No temporal or scalp tenderness. EYES: Pupils equal round and reactive. Extraocular motions intact. No scleral icterus. No injection or drainage. ENT: Nose without bleeding, purulent drainage or septal hematoma. Throat without erythema, tonsillar hypertrophy or exudate. Uvula midline. Airway patent. NECK: Trachea midline. No JVD or lymphadenopathy. Supple, nontender, no meningeal signs. CARDIOVASCULAR: Regular rate and rhythm without murmurs, gallops, or rubs. Tachycardic. Right arm AVF with + B/T RESPIRATORY: Bibasilar rales on BIPAP GASTROINTESTINAL: Abdomen soft, non-tender, nondistended. No hepato-splenomegaly , or palpable masses. No guarding. MUSCULOSKELETAL: Extremities without clubbing, cyanosis.. Trace pretibial edema , pedal pulses 1+ bilat. No joint tenderness, effusion, or edema noted. No calf tenderness. Negative Homans sign bilaterally. NEUROLOGICAL: Awake, oriented to self and place. Difficult to talk, has BIPAP mask. Following simple commands. Laboratory Laboratory Tests Test 03/22/17 03/22/17 03/22/17 08:15 09:25 10:22 White Blood Count 3.3 Red Blood Count 3.19 Hemoglobin 12.4 Hematocrit 36.7 Mean Corpuscular Volume 115.3 Mean Corpuscular Hemoglobin 38.9 Mean Corpuscular Hemoglobin 33.8 Concent Red Cell Distribution Width 16.0 Platelet Count 134 Mean Platelet Volume 9.1 Neutrophils (%) (Auto) 63.1 Lymphocytes (%) (Auto) 27.1 Monocytes (%) (Auto) 9.1 Eosinophils (%) (Auto) 0.2 Basophils (%) (Auto) 0.5 Neutrophils # (Auto) 2.1 Lymphocytes # (Auto) 0.9 Monocytes # (Auto) 0.3 Eosinophils # (Auto) 0.0 Basophils # (Auto) 0.0 CBC Comment DIFF FINAL Differential Comment Prothrombin Time 13.0 Prothromb Time International 1.2 Ratio Activated Partial 26.6 Thromboplast Time Lactic Acid Level 1.0 Sodium Level 138 Potassium Level 5.9 Chloride Level 101 Carbon Dioxide Level 23.5 Anion Gap 14 Blood Urea Nitrogen 85 Creatinine 10.47 Estimat Glomerular Filtration 6 Rate Random Glucose 86 Calcium Level 8.3 Magnesium Level 2.5 Total Bilirubin 0.7 Aspartate Amino Transf 35 (AST/SGOT) Alanine Aminotransferase 18 (ALT/SGPT) Alkaline Phosphatase 117 Total Creatine Kinase 271 Creatine Kinase MB 7.8 Troponin I 0.05 Total Protein 7.7 Albumin 3.4 Lipase 412 Blood Gas Puncture Site LT RADIAL Blood Gas Patient Temperature 98.6 Blood Gas HCO3 21 Blood Gas Base Excess -5.2 Blood Gas Oxygen Saturation 94 Arterial Blood pH 7.28 Arterial Blood Partial 46 Pressure CO2 Arterial Blood Partial 103 Pressure O2 Arterial Blood Oxygen Content 14.8 Arterial Blood 1.3 Carboxyhemoglobin Arterial Blood Methemoglobin 1.2 Blood Gas Hemoglobin 11.1 Oxygen Delivery Device BIPAP Blood Gas Ventilator Setting 15/+5/35% Blood Gas Inspired Oxygen 35 Date/Time Procedure Status Source Growth 03/22/17 08:15 Aerobic Blood Culture Received Blood Peripheral Pending 03/22/17 08:15 Anaerobic Blood Culture Received Blood Peripheral Pending Result Diagram: 03/22/17 0815 03/22/17 0925 Imaging Last Impressions Chest X-Ray 03/22/17 0808 Signed Impressions: Service Date/Time: Wednesday, March 22, 2017 08:12 - CONCLUSION: 1. Advanced cardiomegaly and probable interstitial edema. Oscar Beaulieu MD Assessment and Plan Problem List: (1) Altered mental status (2) Pulmonary edema (3) Encephalopathy (4) HIV disease (5) DM (diabetes mellitus) (6) HTN (hypertension) (7) Cardiomyopathy (8) End stage renal disease (9) CAD (coronary artery disease) (10) Non-compliance (11) COPD (chronic obstructive pulmonary disease) (12) Atrial fibrillation (13) Hyperkalemia (14) Acute diastolic CHF (congestive heart failure) (15) Atrial flutter Assessment and Plan Admitted to Dr. Muro 66-year-old male with history of HIV, end-stage renal disease on dialysis, atrial fibrillation on aspirin, 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 Patient presented to emergency room with altered mental status, cough. Found in pulmonary edema. Fluid overload, pulmonary edema. Acute CHF. Had Echo recently January 2017, EF 55 to 60% -Nephrology has been consulted, input appreciated. Pt. underwent HD treatment. -continue with BIPAP for now -Duonebs Acidosis, etiology unclear. Possible sepsis -Follow cultures -Received Vanco and Zosyn. Continue Zosyn Metabolic encephalopathy poss secondary to pulmonary edema, sepsis -monitor neuro status. -CT of head r/o TIA vs CVA End-stage renal disease, with hyperkalemia Patient underwent hemodialysis treatment Nephrology has been consulted, their input is appreciated Aflutter with RVR, received Cardizem PO Continuous cardiac telemetry Resume Coreg and Cardizem Continue aspirin -Consult cardiology, Dr. Mays evaluated most recently Hypertension, stable Continue with home medications HIV Continue home medication Diabetes, diet control, blood glucose stable Accu-Cheks before meals and at bedtime with insulin therapy Home medications reviewed, initiated as indicated SCDs for DVT prophylaxis Plan of care has been discussed with the patient, attending and registered nurse. Further management of the patient will be dependent on the hospital course Patient's condition is guarded. This patient was seen by myself and Dr. Muro, this H&P is written on her behalf Physician Certification 2 Midnight Certification Type: Admission for Inpatient Services Order for Inpatient Services The services are ordered in accordance with Medicare regulations or non- Medicare payer requirements, as applicable. In the case of services not specified as inpatient-only, they are appropriately provided as inpatient services in accordance with the 2-midnight benchmark. Estimated LOS (days): 2 2 days is the estimated time the patient will need to remain in the hospital, assuming treatment plan goals are met and no additional complications. Post-Hospital Plan: Not yet determined Problem Qualifiers (1) Altered mental status: Qualified Code: R41.82 - Altered mental status, unspecified altered mental status type (2) Pulmonary edema: Qualified Code: J81.0 - Acute pulmonary edema (3) DM (diabetes mellitus): (4) HTN (hypertension): Qualified Code: I10 - Essential hypertension (5) Cardiomyopathy: Qualified Code: I42.9 - Cardiomyopathy, unspecified type (6) CAD (coronary artery disease): Qualified Code: I25.118 - Coronary artery disease involving [place] coronary artery of [place] heart with other form of angina pectoris (7) COPD (chronic obstructive pulmonary disease): Qualified Code: J44.9 - Chronic obstructive pulmonary disease, unspecified COPD type (8) Atrial fibrillation: Qualified Code: I48.0 - Paroxysmal atrial fibrillation (9) Atrial flutter: Qualified Code: I48.92 - Atrial flutter, unspecified type Shanthi Alarcon Mar 22, 2017 17:10 Qualified Code: I48.0 - Paroxysmal atrial fibrillation Shanthi Alarcon Mar 22, 2017 17:10
[2017-03-22] MEDS ORDERED: GLUCAGON 1 MG/ML VIAL OTHER PRN (18:15)
[2017-03-22] MEDS ORDERED: DEXTROSE 50% IN WATER 50 ML VIAL(D50) IV PRN (18:15)
[2017-03-22] MEDS ORDERED: CHLORHEXIDINE GLUCONATE 2 % 1 PACK (2 CLOTHS)(extra cloths) TOPICAL PRN (18:45)
[2017-03-22] MEDS: DEXT 5%-NACL 0.9% 1000 ML INJ 1,000 ML IV SCH (20:00)
[2017-03-22] MEDS: CARVEDILOL 12.5 MG TAB PO SCH (20:54)
[2017-03-22] MEDS: INSULIN ASPART SUPPLEMENTAL SCALE SQ SCH (21:00)
[2017-03-22] MEDS: DOCUSATE SODIUM 50 MG/SENNA 8.6 MG TAB PO SCH (21:00)
[2017-03-22] MEDS: SODIUM CHLORIDE 0.9% FLUSH 10 ML FLUSH IV FLUSH SCH (21:00)
[2017-03-22] MEDS ORDERED: FENOFIBRATE 145 MG TAB PO SCH (21:00)
[2017-03-22] MEDS: RIFAXIMIN 550 MG TAB PO SCH (21:00)
--- NOTE | 2017-03-22 21:46 | RADRPT ---
EXAM DATE/TIME: 03/22/2017 21:15 [facility] COMPARISON: CT BRAIN W/O CONTRAST, January 27, 2017, 11:50. INDICATIONS : Altered mental status. RADIATION DOSE: 8.35 CTDIvol (mGy) MEDICAL HISTORY : Cardiovascular disease. Renal disease, end stage. Hypertension.dialysis patient SURGICAL HISTORY : Non-responsive. ENCOUNTER: Initial ACUITY: 1 day PAIN SCALE: Non-responsive LOCATION: cranial TECHNIQUE: Multiple contiguous axial images were obtained of the head. Using automated exposure control and adj ustment of the mA and/or kV according to patient size, radiation dose was kept as low as reasonably a chievable to obtain optimal diagnostic quality images. FINDINGS: CEREBRUM: Scattered areas of low attenuation throughout the white matter. The ventricles are normal for age. N o evidence of midline shift, mass lesion, hemorrhage or acute infarction. No extra-axial fluid colle ctions are seen. POSTERIOR FOSSA: The cerebellum and brainstem are intact. The 4th ventricle is midline. The cerebellopontine angle i s unremarkable. EXTRACRANIAL: The visualized portion of the orbits is intact. SKULL: The calvaria is intact. No evidence of skull fracture. CONCLUSION: Nonspecific white matter changes. No acute disease. Jorge Christiansen MD on March 22, 2017 at 21:44 Board Certified Radiologist. This report was verified electronically.
--- NOTE | 2017-03-22 21:49 | RADRPT ---
EXAM DATE/TIME: 03/22/2017 21:19 [facility] COMPARISON: No previous studies available for comparison. INDICATIONS : Patient with history of pancreatitis. ORAL CONTRAST: Prescribed oral contrast ingested. RADIATION DOSE: 8.35 CTDIvol (mGy) MEDICAL HISTORY : Cardiovascular disease. Renal disease, end stage. Hypertension.dialysis patient SURGICAL HISTORY : Non-responsive. ENCOUNTER: Initial ACUITY: 1 day PAIN SCALE: Non-responsive LOCATION: upper quadrant TECHNIQUE: Volumetric scanning of the abdomen and pelvis was performed. Using automated exposure control and ad justment of the mA and/or kV according to patient size, radiation dose was kept as low as reasonably achievable to obtain optimal diagnostic quality images. FINDINGS: LOWER LUNGS: Small right pleural effusion. LIVER: Homogeneous density without lesion. There is no dilation of the biliary tree. No calcified gallston es. SPLEEN: Normal size without lesion. PANCREAS: Within normal limits. KIDNEYS: Atrophic with numerous renal vascular calcifications. There is no mass, stone, or hydronephrosis. Nu merous bilateral renal cysts. ADRENAL GLANDS: Within normal limits. VASCULAR: There is no aortic aneurysm. BOWEL/MESENTERY: Scattered diverticulosis. Possible wall thickening ascending and transverse colon. There is no free intraperitoneal air or fluid. ABDOMINAL WALL: Within normal limits. RETROPERITONEUM: There is no lymphadenopathy. BLADDER: No wall thickening or mass. REPRODUCTIVE: Within normal limits. INGUINAL: There is no lymphadenopathy or hernia. MUSCULOSKELETAL: Within normal limits for patient age. CONCLUSION: 1. No evidence for pancreatitis. 2. Atrophic bilateral kidneys with bilateral renal cysts. 3. Right pleural effusion. 4. Questionable wall thickening of the ascending and transverse colon. Jorge Christiansen MD on March 22, 2017 at 21:44 Board Certified Radiologist. This report was verified electronically.
--- NOTE | 2017-03-22 21:53 | EKG ---
Date Performed: 03/22/2017 Time Performed: 08:32:39 PTAGE: 66 years EKG: ATRIAL FLUTTER/TACHYCARDIA WITH RAPID VENTRICULAR RESPONSE NONSPECIFIC ST & T-WAVE ABNORMAL ITY Since previous tracing, no significant change noted ABNORMAL RHYTHM ECG PREVIOUS TRACING : 01/27/2017 11.28 DOCTOR: Mari Early Interpretating Date/Time 03/22/2017 21:50:55
[2017-03-23] VITALS (15 sets, daily range): BP systolic 103–154; BP diastolic 63–95; PULSE 41–126; RESP 14–18; TEMP 98.1–98.8; O2SAT 96–100
[2017-03-23] MEDS: HEPARIN SODIUM - SQ 10,000 UNITS/ML VIAL SQ SCH ×3 (01:00→23:51)
[2017-03-23] MEDS: PIPERACIL-TAZO 2.25 GM PREMIX 50 ML IV SCH ×4 (02:28→23:51)
[2017-03-23] MEDS: DILTIAZEM-CD 180 MG CAP ER PO SCH ×2 (02:29→08:30)
[2017-03-23] MEDS: CHLORHEXIDINE GLUCONATE 2 % 1 PACK (2 CLOTHS)(taper/protocol) TOPICAL SCH (04:00)
[2017-03-23 05:39] LABS: AUTOMATED NEUTROPHIL # 2.9 TH/MM3 (1.8-7.7); BASOPHIL # 0.1 TH/MM3 (0-0.2); BASOPHIL % 1.3 % (0.0-2.0); EOSINOPHIL % 0.4 % (0.0-4.0); HEMATOCRIT 37.1 % (39.0-51.0); HEMO FLAGS DIFF FINAL; LYMPH % 19.5 % (9.0-44.0); LYMPHOCYTE # 0.9 TH/MM3 (1.0-4.8); MEAN CELL VOLUME 115.1 FL (80.0-100.0); MEAN CORPUSCULAR HEMOGLOBIN 37.8 PG (27.0-34.0); MEAN CORPUSCULAR HGB CONC 32.9 % (32.0-36.0); MONO % 14.6 % (0.0-8.0); NEUT % 64.2 % (16.0-70.0); PLATELET COUNT 132 TH/MM3 (150-450); RED BLOOD COUNT 3.22 MIL/MM3 (4.50-5.90); RED CELL DISTRIBUTION WIDTH 15.8 % (11.6-17.2); WHITE BLOOD COUNT 4.5 TH/MM3 (4.0-11.0)
[2017-03-23 06:06] LABS: BICARBONATE 28.3 MEQ/L (21.0-32.0); POTASSIUM 4.5 MEQ/L (3.5-5.1)
[2017-03-23] MEDS: INSULIN ASPART SUPPLEMENTAL SCALE SQ SCH ×4 (07:00→21:00)
[2017-03-23] MEDS: RIFAXIMIN 550 MG TAB PO SCH ×2 (08:29→21:12)
[2017-03-23] MEDS: FOLIC ACID 1 MG TAB PO SCH (08:29)
[2017-03-23] MEDS: SEVELAMER CARBONATE 800 MG TAB PO SCH ×3 (08:29→17:25)
[2017-03-23] MEDS: SODIUM CHLORIDE 0.9% FLUSH 10 ML FLUSH IV FLUSH SCH ×2 (08:30→21:13)
[2017-03-23] MEDS: valACYclovir HCL 500 MG TAB PO SCH (08:30)
[2017-03-23] MEDS: CARVEDILOL 12.5 MG TAB PO SCH ×2 (08:30→21:13)
[2017-03-23] MEDS: DOCUSATE SODIUM 50 MG/SENNA 8.6 MG TAB PO SCH ×2 (08:30→21:13)
[2017-03-23] MEDS: PANTOPRAZOLE SOD 40 MG DELAYED RELEASE TAB PO SCH (08:30)
[2017-03-23] MEDS: ASPIRIN EC 81 MG TABEC PO SCH (08:30)
[2017-03-23] MEDS ORDERED: NON-FORMULARY DRUG (Elvitegravir-Cobicistat-Emtricitabin-Tenofvir (Genvoya) 1 TAB) PO SCH (09:00)
[2017-03-23] MEDS ORDERED: PT:GENVOYA PO SCH (09:00)
--- NOTE | 2017-03-23 09:49 | HHI.PR ---
Subjective Interval History more awake alert wants to eat feels "he is a little jumpy" complaining of back pain, wants Tylenol 3 heart rate controlled in 60s no other complaints no family at bedside Vitals/Results Intake & Output 03/22/17 03/22/17 03/23/17 15:00 23:00 07:00 Intake Total 375 ml 432 ml Output Total 4500 ml 0 ml 0 ml Balance -4500 ml 375 ml 432 ml Intake Oral 300 ml 100 ml IV Total 75 ml 332 ml Output Urine Total 0 ml 0 ml Stool Total 0 ml Hemodialysis 4500 ml # Bowel Movements 1 Vital Signs Vital Signs Date Time Temp Pulse Resp B/P Pulse Ox O2 Delivery O2 Flow Rate FiO2 03/23/17 07:35 100 Nasal Cannula 2.00 03/23/17 06:00 93 03/23/17 04:00 93 03/23/17 04:00 98.4 124 15 126/85 96 03/23/17 02:00 122 03/23/17 00:00 122 03/23/17 00:00 98.8 126 16 154/95 98 03/22/17 22:00 120 03/22/17 21:56 100 Nasal Cannula 2.00 03/22/17 20:00 126 03/22/17 20:00 99.1 120 24 185/110 96 03/22/17 18:00 126 19 99 03/22/17 18:00 98.1 126 19 173/106 99 03/22/17 15:11 98 35 03/22/17 15:09 126 15 154/97 99 BiPAP 35 03/22/17 11:47 96 50 CBC/BMP: 03/23/17 0508 03/23/17 0508 Lab Results Laboratory Tests Test 03/22/17 03/22/17 03/23/17 10:22 17:50 05:08 Blood Gas Puncture Site LT RADIAL Blood Gas Patient Temperature 98.6 Blood Gas HCO3 21 mmol/L Blood Gas Base Excess -5.2 mmol/L Blood Gas Oxygen Saturation 94 % Arterial Blood pH 7.28 Arterial Blood Partial 46 mmHg Pressure CO2 Arterial Blood Partial 103 mmHg Pressure O2 Arterial Blood Oxygen Content 14.8 Vol % Arterial Blood 1.3 % Carboxyhemoglobin Arterial Blood Methemoglobin 1.2 % Blood Gas Hemoglobin 11.1 G/DL Oxygen Delivery Device BIPAP Blood Gas Ventilator Setting 15/+5/35% Blood Gas Inspired Oxygen 35 % Nasal Screen MRSA (PCR) MRSA NOT DETECTED White Blood Count 4.5 TH/MM3 Red Blood Count 3.22 MIL/MM3 Hemoglobin 12.2 GM/DL Hematocrit 37.1 % Mean Corpuscular Volume 115.1 FL Mean Corpuscular Hemoglobin 37.8 PG Mean Corpuscular Hemoglobin 32.9 % Concent Red Cell Distribution Width 15.8 % Platelet Count 132 TH/MM3 Mean Platelet Volume 8.6 FL Neutrophils (%) (Auto) 64.2 % Lymphocytes (%) (Auto) 19.5 % Monocytes (%) (Auto) 14.6 % Eosinophils (%) (Auto) 0.4 % Basophils (%) (Auto) 1.3 % Neutrophils # (Auto) 2.9 TH/MM3 Lymphocytes # (Auto) 0.9 TH/MM3 Monocytes # (Auto) 0.7 TH/MM3 Eosinophils # (Auto) 0.0 TH/MM3 Basophils # (Auto) 0.1 TH/MM3 CBC Comment DIFF FINAL Differential Comment Sodium Level 136 MEQ/L Potassium Level 4.5 MEQ/L Chloride Level 96 MEQ/L Carbon Dioxide Level 28.3 MEQ/L Anion Gap 12 MEQ/L Blood Urea Nitrogen 63 MG/DL Creatinine 8.95 MG/DL Estimat Glomerular Filtration 7 ML/MIN Rate Random Glucose 78 MG/DL Calcium Level 8.6 MG/DL Lipase 391 U/L Assessment/Plan Assessment/Plan Physical Exam GENERAL: This is a well-nourished, gentleman laying in bed. awake alert and oriented x3 SKIN: No rashes, ecchymoses or lesions. Cool and dry. HEAD: Atraumatic. Normocephalic. No temporal or scalp tenderness. EYES: Pupils equal round and reactive. Extraocular motions intact. No scleral icterus. No injection or drainage. ENT: Nose without bleeding, purulent drainage or septal hematoma. Throat without erythema, tonsillar hypertrophy or exudate. Uvula midline. Airway patent. NECK: Trachea midline. No JVD or lymphadenopathy. Supple, nontender, no meningeal signs. CARDIOVASCULAR: Regular rate and rhythm without murmurs, gallops, or rubs. Right arm AVF with + B/T RESPIRATORY: decreased breath sounds b/l, no rales or wheezes appreciated GASTROINTESTINAL: Abdomen soft, non-tender, nondistended. No hepato-splenomegaly , or palpable masses. No guarding. MUSCULOSKELETAL: Extremities without clubbing, cyanosis.. Trace pretibial edema , pedal pulses 1+ bilat. No joint tenderness, effusion, or edema noted. No calf tenderness. Negative Homans sign bilaterally. NEUROLOGICAL: Awake, oriented to self and place. Difficult to talk, has BIPAP mask. Following simple commands. 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 Patient presented to emergency room with altered mental status, cough. Found in pulmonary edema. Fluid overload, pulmonary edema. Acute CHF. Had Echo recently January 2017, EF 55 to 60% -Nephrology following s/p HD treatment 03/22, -4.5L OFF BIPAP, on NC -Duonebs Acidosis, etiology unclear. Possible sepsis -Follow cultures, so far neg -Received Vanco and Zosyn. Continue Zosyn repeat ABG today Metabolic encephalopathy poss secondary to pulmonary edema, sepsis; now resolved -monitor neuro status. -CT of head neg End-stage renal disease, with hyperkalemia Patient underwent hemodialysis treatment Nephrology following Aflutter with RVR, received Cardizem PO Continuous cardiac telemetry Resume Coreg and Cardizem Continue aspirin -Consult cardiology, Dr. Mays evaluated most recently Hypertension, stable Continue with home medications HIV Continue home medication Diabetes, diet control, blood glucose stable Accu-Cheks before meals and at bedtime with insulin therapy elevated Lipase on admission CT abd/pelvis neg lipase normal advance diet Home medications reviewed, initiated as indicated SCDs for DVT prophylaxis Patient's condition is guarded. Albina Muro MD Mar 23, 2017 09:49
[2017-03-23] MEDS ORDERED: ACETAMINOPHEN 325 MG TAB PO PRN (10:00)
[2017-03-23 10:26] LABS: BLOOD GAS BASE EXCESS -0.9 mmol/L (-2-2); BLOOD GAS CARBOXYHEMOGLOBIN 1.7 % (0-4); BLOOD GAS HCO3 24 mmol/L (22-26); BLOOD GAS METHEMOGLOBIN 1.2 % (0-2); BLOOD GAS O2 HGB SATURATION 93 % (90-100); BLOOD GAS OXYGEN CONTENT 14.9 Vol % (12.0-20.0); BLOOD GAS PCO2 44 mmHg (38-42); BLOOD GAS PO2 86 mmHg (61-120); BLOOD GAS TOTAL HGB 11.4 G/DL (12.0-16.0); CRITICAL VALUE NO; DRAW SITE LT RADIAL; LITER FLOW 2 L/M; NUMBER OF ARTERIAL PUNCTURES 1; OXYGEN DEVICE NASAL CANNULA; STAT YES; TEMP CORR TO 98.6; ULNAR PULSE PRESENT
--- NOTE | 2017-03-23 11:20 | HHI.NPPN ---
Subjective General Problems: Anemia Renal Failure: Chronic, End Stage Renal Disease Interval History He looks better today. Frequency of myoclonic jerking movements is less. Dialyzed yesterday without incident. (Moni Yung) Objective Data Data 03/22/17 03/23/17 19:00 07:00 Intake Total 807 ml Output Total 4500 ml 0 ml Balance -4500 ml 807 ml Intake Oral 400 ml IV Total 407 ml Output Urine Total 0 ml Stool Total 0 ml Hemodialysis 4500 ml # Bowel Movements 1 Vital Signs Date Time Temp Pulse Resp B/P Pulse Ox O2 Delivery O2 Flow Rate FiO2 03/23/17 10:00 62 03/23/17 09:01 113 03/23/17 08:00 98.3 117 14 103/75 100 03/23/17 08:00 117 03/23/17 07:35 100 Nasal Cannula 2.00 03/23/17 06:00 93 03/23/17 04:00 93 03/23/17 04:00 98.4 124 15 126/85 96 03/23/17 02:00 122 03/23/17 00:00 122 03/23/17 00:00 98.8 126 16 154/95 98 03/22/17 22:00 120 03/22/17 21:56 100 Nasal Cannula 2.00 03/22/17 20:00 126 03/22/17 20:00 99.1 120 24 185/110 96 03/22/17 18:00 126 19 99 03/22/17 18:00 98.1 126 19 173/106 99 03/22/17 15:11 98 35 03/22/17 15:09 126 15 154/97 99 BiPAP 35 03/22/17 11:47 96 50 (Moni Yung) -: 03/23/17 0508 03/23/17 0508 Imaging Last 72 hours Impressions Chest X-Ray 03/22/17 0808 Signed Impressions: Service Date/Time: Wednesday, March 22, 2017 08:12 - CONCLUSION: 1. Advanced cardiomegaly and probable interstitial edema. Oscar Beaulieu MD Head CT 03/22/17 0000 Signed Impressions: Service Date/Time: Wednesday, March 22, 2017 21:15 - CONCLUSION: Nonspecific white matter changes. No acute disease. Jorge Christiansen MD Abdomen/Pelvis CT 03/22/17 0000 Signed Impressions: Service Date/Time: Wednesday, March 22, 2017 21:19 - CONCLUSION: 1. No evidence for pancreatitis. 2. Atrophic bilateral kidneys with bilateral renal cysts. 3. Right pleural effusion. 4. Questionable wall thickening of the ascending and transverse colon. Jorge Christiansen MD (Moni Yung) Physical Exam General Appearance: Well Developed, Well Nourished, No Acute Distress (Moni Yung [employer]) Throat Throat Exam: Oral Mucosa [place] & Moist (Moni Yung [employer]) Pulmonary Resp Exam: Clear Bilaterally, Breath Sounds Equal (Moni Yung [employer]) Cardiology CV Exam: Regular, Normal Sinus Rhythm, Good Perfusion (Moni Yung [employer]) Gastrointestinal/Abdomen GI Exam: Soft, Non-Tender, Bowel Sounds Present (Moni Yung [employer]) Musculoskeletal MS Exam: Joints Intact, Normal Gait, Normal Tone (Moni Yung [employer]) Integumentary Skin Exam: Clear, Warm, Dry (Moni Yung [employer]) Extremeties Extremities Exam: No Edema, Pedal Pulses Palpable (Moni Yung [employer]) Neurologic Neuro Exam: Alert, Awake, Oriented, Speech Clear, Moving All Extremities Neuro Remarks random jerking myoclonic movements awake, follows commands speech somewhat thick, difficult to understand but no aphasia (Moni Yung BDante [employer]) Psychiatric Psych Exam: Appropriate Responses (Moni Yung) Assessment/Plan Discussed Condition With: Patient Assessment Summary: Anemia of CKD, End Stage Renal Disease Problem List: (1) Dependent on hemodialysis Plan: continue TTS dialysis, he had 4500 ml UF yesterday repeat K is normal avoid IVF (I will stop D5W that is infusing) and gadolinium has functioning AVF for dialysis high protein diet, stable from renal perspective I spoke with his sister, she manages his medications in the home setting. She is not sure where the Prolia/Denosumab is being given. It is listed as an injection on home med list. She will call PCP and ID doctor to inquire. Nevertheless, it should be stopped as to not cause or worsen hypocalcemia (2) SOB (shortness of breath) Plan: improved, may have been due to fluid overload UF as tolerated with dialysis (3) Encephalopathy Plan: improved, etiology uncertain continue supportive care (4) Hyperkalemia Plan: improved after hemodialysis, monitor (5) Anemia Plan: Epogen with HD (6) HIV disease Plan: on HAART (Moni Yung) Plan patient was seen and examined. Agree with above assessment and plan. (Tyson rAboleda MD) Moni Yung Mar 23, 2017 11:20 Tyson Arboleda MD Mar 23, 2017 21:02
--- NOTE | 2017-03-23 15:23 | MB ---
cc: LOUANN DANIEL MD DATE OF CONSULTATION 03/23/17 HISTORY OF PRESENT ILLNESS Brennan is a very pleasant 66-year-old gentleman with a history of end-stage renal failure on dialysis, history of atrial fibrillation and flutter, hypertension, HIV, peripheral vascular disease with carotid stenosis, cardiomyopathy, mitral valve regurgitation, recently readmitted with severe bleeding from AV fistula site status post revision associated with anemia. He represents with a chief complaint of altered mental status, lethargy, weakness and fatigue. Currently, he is alert and oriented times 3. Consult is obtained for bradycardia into the 30s. The patient is lucid, awake, alert and no acute distress. Denies chest pain, shortness of breath, fevers, chills, cough, GI or bleeding, paroxysmal nocturnal dyspnea, orthopnea, syncope or dizziness. PAST MEDICAL HISTORY As per his history of present illness. History of TIA, diabetes, COPD, hepatitis C, asthma. SOCIAL HISTORY Denies tobacco or alcohol use. Former cocaine and heroin abuser. ALLERGIES MRSA. MEDICATIONS Medications in the hospital: 1. Epogen. 2. Aspirin 81 milligrams daily. 3. Folic acid 1 milligram daily. 4. Pantoprazole 40 daily. 5. Valtrex 1000 daily. 6. Piperacillin/ tazobactam. 7. Cardizem 360 daily. 8. Carvedilol 25 q. 12 hours. 9. Rifaximine 550 b.i.d. 10. Sliding scale insulin. 11. Sevelamer 1600 milligrams t.i.d. PHYSICAL EXAMINATION VITAL SIGNS: Pulse ranging between 93 and 113 till this morning. Currently, in ranging from 35 and 40. Blood pressure 114/69, temperature 98.2. GENERAL: He is alert and oriented x3, in no acute distress. NECK: Supple. No JVD or bruit. CARDIOVASCULAR: S1-S2. No murmurs, rubs or gallops. LUNGS: Clear to auscultation bilaterally. ABDOMEN: Soft, nontender, nondistended with positive bowel sounds. EXTREMITIES: No lower extremity edema. LABORATORY DATA White count 3.3, hemoglobin 12.4, hematocrit 36.7, MCV 115.3, platelet count 134, INR is 1.2. Blood gas initially pH 7.28, pCO2 46, pO2 103. Repeat, pH 7.35, pCO2 44, pO2 in 86. Sodium 138, potassium 5.9, chloride 101, bicarb 22.9, creatinine 10.47, lactic acid is 1.0. LFTs normal. Troponin is 0.05. Albumin 3.4. EKG initially shows SVT at a rate of 113 beats per minute, waveforms suggestive of a-flutter. Nonspecific ST-T wave changes. Head CT nonspecific white matter changes. No acute disease. Abdominopelvic CT no evidence of pancreatitis. Atrophic bilateral kidneys with bilateral renal cyst. Right pleural effusion. Questionable wall thickening of the ascending and transverse colon. Chest x-ray advanced cardiomegaly and probable interstitial edema. FINAL DIAGNOSIS 1. A-flutter with tachybrady syndrome. 2. End-stage renal failure. 3. History of significant bleeding requiring blood transfusion. 4. History of anemia. 5. HIV. 6. Hepatitis C. 7. End-stage renal failure. 8. Carotid stenosis. 9. Cardiomyopathy. 10. MR. 11. Hyperkalemia. 12. Neutropenia. 13. Anemia. 14. Pancytopenia. DISCUSSION At this point in time we have held Cardizem and Coreg. Anticipate the patient will develop rapid ventricular response at some point. At that point in time we will try him on IV Cardizem. He may need a permanent pacemaker with AV node ablation. Anticoagulation is very difficult for him given his recent significant bleeds requiring transfusion. I see his hemoglobin is relatively stable, could consider more aggressive anticoagulation. However, he is pancytopenic and there may be some concerns with noncompliance. Certainly from a [facility] standpoint he should be anticoagulated with Coumadin and/or renally adjusted ___ oral anticoagulant medication. At this point in time will wait and determinate what his transient hemoglobin, platelet count and white count are prior to proceeding with this. Also, given the possibility that the patient may need permanent pacemaker as well. Will continue to follow. MD CHELY Britt/EO /2:47 PM /3:00 PM
[2017-03-23] MEDS ORDERED: DILTIAZEM 125 MG/NS 100 ML IV SCH ×2 (16:15)
[2017-03-23] MEDS: DEXT 5%-NACL 0.9% 1000 ML INJ 1,000 ML IV SCH (20:00)
[2017-03-24] VITALS (32 sets, daily range): BP systolic 100–156; BP diastolic 58–97; PULSE 57–128; RESP 9–19; TEMP 98.4–98.6; O2SAT 96–100
[2017-03-24] MEDS ORDERED: ZOLPIDEM TARTRATE 5 MG TAB PO ONE
[2017-03-24] MEDS: CHLORHEXIDINE GLUCONATE 2 % 1 PACK (2 CLOTHS)(taper/protocol) TOPICAL SCH (04:00)
[2017-03-24 05:38] LABS: AUTOMATED NEUTROPHIL # 1.8 TH/MM3 (1.8-7.7); BASOPHIL % 0.7 % (0.0-2.0); EOSINOPHIL % 0.8 % (0.0-4.0); HEMO FLAGS DIFF FINAL; LYMPH % 27.2 % (9.0-44.0); LYMPHOCYTE # 0.9 TH/MM3 (1.0-4.8); MEAN CELL VOLUME 114.6 FL (80.0-100.0); MEAN CORPUSCULAR HEMOGLOBIN 37.7 PG (27.0-34.0); MEAN CORPUSCULAR HGB CONC 32.9 % (32.0-36.0); MONO % 16.1 % (0.0-8.0); NEUT % 55.2 % (16.0-70.0); PLATELET COUNT 116 TH/MM3 (150-450); RED BLOOD COUNT 3.05 MIL/MM3 (4.50-5.90); RED CELL DISTRIBUTION WIDTH 15.4 % (11.6-17.2); WHITE BLOOD COUNT 3.3 TH/MM3 (4.0-11.0)
[2017-03-24 06:14] LABS: BICARBONATE 22.8 MEQ/L (21.0-32.0); POTASSIUM 4.8 MEQ/L (3.5-5.1)
[2017-03-24] MEDS: INSULIN ASPART SUPPLEMENTAL SCALE SQ SCH ×4 (07:00→21:00)
[2017-03-24] MEDS: EPOETIN ALFA 10,000 UNITS/ML VIAL IV PRN (11:30)
--- NOTE | 2017-03-24 12:07 | HHI.NPPN ---
Subjective General Problems: Anemia Renal Failure: Chronic, End Stage Renal Disease Interval History Seen during dialysis. He is in A fib, was luis and now in RVR. (Moni Yung) Objective Data Data 03/23/17 03/24/17 19:00 07:00 Intake Total 716 ml 270 ml Output Total 0 ml 0 ml Balance 716 ml 270 ml Intake Oral 480 ml 250 ml IV Total 236 ml 20 ml Output Urine Total 0 ml 0 ml # Bowel Movements 0 1 Vital Signs Date Time Temp Pulse Resp B/P Pulse Ox O2 Delivery O2 Flow Rate FiO2 03/24/17 06:00 98.6 58 17 149/74 100 03/24/17 06:00 57 03/24/17 04:00 58 03/24/17 02:00 59 15 100/58 96 03/24/17 02:00 59 03/24/17 00:00 98.4 59 17 140/72 100 03/24/17 00:00 59 03/23/17 22:12 100 Nasal Cannula 2.00 03/23/17 22:00 59 03/23/17 20:00 98.3 60 14 132/71 100 03/23/17 20:00 60 03/23/17 18:00 61 03/23/17 16:00 41 03/23/17 16:00 98.1 41 14 119/63 100 03/23/17 14:00 47 (Moni Yung) -: 03/24/17 0451 03/24/17 0451 Physical Exam General Appearance: Well Developed, Well Nourished, No Acute Distress (Moni Yung) Throat Throat Exam: Oral Mucosa [place] & Moist (Moni Yung) Pulmonary Resp Exam: Clear Bilaterally, Breath Sounds Equal (Moni Yung) Cardiology CV Exam: Regular, Normal Sinus Rhythm, Good Perfusion (Moni Yung) Gastrointestinal/Abdomen GI Exam: Soft, Non-Tender, Bowel Sounds Present (Moni Yung) Musculoskeletal MS Exam: Joints Intact, Normal Gait, Normal Tone (Moni Yung) Integumentary Skin Exam: Clear, Warm, Dry (Moni Yung) Extremeties Extremities Exam: No Edema, Pedal Pulses Palpable (Moni Yung) Neurologic Neuro Exam: Alert, Awake, Oriented, Speech Clear, Moving All Extremities Neuro Remarks random jerking myoclonic movements awake, follows commands speech somewhat thick, difficult to understand but no aphasia (Moni Yung) Psychiatric Psych Exam: Appropriate Responses (Moni Yung) Assessment/Plan Discussed Condition With: Patient Assessment Summary: Anemia of CKD, End Stage Renal Disease Problem List: (1) Dependent on hemodialysis Plan: seen during dialysis on a 2K, 300 BFR, goal 3L continue TTS dialysis repeat K is normal avoid IVF and gadolinium has functioning AVF for dialysis high protein diet, stable from renal perspective (2) SOB (shortness of breath) Plan: improved, may have been due to fluid overload UF as tolerated with dialysis (3) Encephalopathy Plan: improved, etiology uncertain continue supportive care (4) Hyperkalemia Plan: improved after hemodialysis, monitor (5) Anemia Plan: Epogen with HD (6) HIV disease Plan: on HAART (7) Atrial flutter Plan: on I V Cardizem may need AV jadon ablation and PPM placement ferry terminal agent anticoagulation to be decided in addition cardiology following (Moni Yung) Plan patient was seen and examined. Seen during dialysis. Cardiology on the case. ( Tyson Arboleda MD) Problem Qualifiers (1) Atrial flutter: Qualified Code: I48.92 - Atrial flutter, unspecified type Moni Yung Mar 24, 2017 12:06 Tyson Arboleda MD Mar 25, 2017 16:53
[2017-03-24] MEDS: GELATIN 12 MM/7 MM FOAM TOP PRN (12:30)
[2017-03-24] MEDS: CARVEDILOL 12.5 MG TAB PO SCH ×2 (12:37→21:29)
[2017-03-24] MEDS: DILTIAZEM-CD 180 MG CAP ER PO SCH (12:37)
[2017-03-24] MEDS: ASPIRIN EC 81 MG TABEC PO SCH (12:37)
[2017-03-24] MEDS: FOLIC ACID 1 MG TAB PO SCH (12:37)
[2017-03-24] MEDS: valACYclovir HCL 500 MG TAB PO SCH (12:38)
[2017-03-24] MEDS: DOCUSATE SODIUM 50 MG/SENNA 8.6 MG TAB PO SCH ×2 (12:38→21:00)
[2017-03-24] MEDS: SEVELAMER CARBONATE 800 MG TAB PO SCH ×3 (12:38→17:17)
[2017-03-24] MEDS: PANTOPRAZOLE SOD 40 MG DELAYED RELEASE TAB PO SCH (12:38)
[2017-03-24] MEDS: RIFAXIMIN 550 MG TAB PO SCH ×2 (12:38→21:29)
[2017-03-24] MEDS: SODIUM CHLORIDE 0.9% FLUSH 10 ML FLUSH IV FLUSH SCH ×2 (12:49→21:00)
--- NOTE | 2017-03-24 14:06 | PD.CARD.PN ---
Subjective Subjective Remarks alert in nad Objective Vital Signs / I&O Vital Signs Date Time Temp Pulse Resp B/P Pulse Ox O2 Delivery O2 Flow Rate FiO2 03/24/17 06:00 98.6 58 17 149/74 100 03/24/17 06:00 57 03/24/17 04:00 58 03/24/17 02:00 59 15 100/58 96 03/24/17 02:00 59 03/24/17 00:00 98.4 59 17 140/72 100 03/24/17 00:00 59 03/23/17 22:12 100 Nasal Cannula 2.00 03/23/17 22:00 59 03/23/17 20:00 98.3 60 14 132/71 100 03/23/17 20:00 60 03/23/17 18:00 61 03/23/17 16:00 41 03/23/17 16:00 98.1 41 14 119/63 100 I/O 03/23/17 03/23/17 03/23/17 03/24/17 03/24/17 03/24/17 07:00 15:00 23:00 07:00 15:00 23:00 Intake Total 432 ml 716 ml 210 ml 60 ml Output Total 0 ml 0 ml 0 ml 0 ml Balance 432 ml 716 ml 210 ml 60 ml Intake Oral 100 ml 480 ml 200 ml 50 ml IV Total 332 ml 236 ml 10 ml 10 ml Output Urine Total 0 ml 0 ml 0 ml 0 ml # Bowel Movements 1 0 1 0 Physical Exam GENERAL: SKIN: Warm and dry. HEAD: Normocephalic. EYES: No scleral icterus. No injection or drainage. NECK: Supple, trachea midline. No JVD or lymphadenopathy. CARDIOVASCULAR: Regular rate and rhythm without murmurs, gallops, or rubs. RESPIRATORY: Breath sounds equal bilaterally. No accessory muscle use. GASTROINTESTINAL: Abdomen soft, non-tender, nondistended. MUSCULOSKELETAL: No cyanosis, or edema. BACK: Nontender without obvious deformity. No CVA tenderness. Laboratory Laboratory Tests Test 03/24/17 04:51 White Blood Count 3.3 TH/MM3 Red Blood Count 3.05 MIL/MM3 Hemoglobin 11.5 GM/DL Hematocrit 35.0 % Mean Corpuscular Volume 114.6 FL Mean Corpuscular Hemoglobin 37.7 PG Mean Corpuscular Hemoglobin 32.9 % Concent Red Cell Distribution Width 15.4 % Platelet Count 116 TH/MM3 Mean Platelet Volume 8.6 FL Neutrophils (%) (Auto) 55.2 % Lymphocytes (%) (Auto) 27.2 % Monocytes (%) (Auto) 16.1 % Eosinophils (%) (Auto) 0.8 % Basophils (%) (Auto) 0.7 % Neutrophils # (Auto) 1.8 TH/MM3 Lymphocytes # (Auto) 0.9 TH/MM3 Monocytes # (Auto) 0.5 TH/MM3 Eosinophils # (Auto) 0.0 TH/MM3 Basophils # (Auto) 0.0 TH/MM3 CBC Comment DIFF FINAL Differential Comment Sodium Level 135 MEQ/L Potassium Level 4.8 MEQ/L Chloride Level 94 MEQ/L Carbon Dioxide Level 22.8 MEQ/L Anion Gap 18 MEQ/L Blood Urea Nitrogen 84 MG/DL Creatinine 10.56 MG/DL Estimat Glomerular Filtration 6 ML/MIN Rate Random Glucose 124 MG/DL Calcium Level 7.7 MG/DL Troponin I 0.11 NG/ML Assessment and Plan Problem List: (1) ESRD (end stage renal disease) (2) A-fib (3) HIV disease (4) CAD (coronary artery disease) (5) Cardiomyopathy (6) DM (diabetes mellitus) (7) Non-compliance (8) Bradycardia (9) Tachy-luis syndrome Assessment and Plan 1.) Atrial fib - tachy luis syndrome, consult Dr Palacios, ac held due to av fistula hemorrhages requiring transfusion and medical and follow up noncompliance, continue prn cardizem drip to keep hr<130 Problem Qualifiers (1) CAD (coronary artery disease): Qualified Code: I25.118 - Coronary artery disease involving nome coronary artery of nome heart with other form of angina pectoris (2) Cardiomyopathy: Qualified Code: I42.9 - Cardiomyopathy, unspecified type (3) DM (diabetes mellitus): Onesimo Mays MD Mar 24, 2017 14:06
--- NOTE | 2017-03-24 14:52 | HHI.PR ---
Subjective Interval History awake alert and oriented hear rate in 30s overnight, currently in 120s wants to go home no family at bedside Vitals/Results Intake & Output 03/23/17 03/23/17 03/24/17 15:00 23:00 07:00 Intake Total 716 ml 210 ml 60 ml Output Total 0 ml 0 ml 0 ml Balance 716 ml 210 ml 60 ml Intake Oral 480 ml 200 ml 50 ml IV Total 236 ml 10 ml 10 ml Output Urine Total 0 ml 0 ml 0 ml # Bowel Movements 0 1 0 Vital Signs Vital Signs Date Time Temp Pulse Resp B/P Pulse Ox O2 Delivery O2 Flow Rate FiO2 03/24/17 06:00 98.6 58 17 149/74 100 03/24/17 06:00 57 03/24/17 04:00 58 03/24/17 02:00 59 15 100/58 96 03/24/17 02:00 59 03/24/17 00:00 98.4 59 17 140/72 100 03/24/17 00:00 59 03/23/17 22:12 100 Nasal Cannula 2.00 03/23/17 22:00 59 03/23/17 20:00 98.3 60 14 132/71 100 03/23/17 20:00 60 03/23/17 18:00 61 03/23/17 16:00 41 03/23/17 16:00 98.1 41 14 119/63 100 CBC/BMP: 03/24/17 0451 03/24/17 0451 Lab Results Laboratory Tests Test 03/24/17 04:51 White Blood Count 3.3 TH/MM3 Red Blood Count 3.05 MIL/MM3 Hemoglobin 11.5 GM/DL Hematocrit 35.0 % Mean Corpuscular Volume 114.6 FL Mean Corpuscular Hemoglobin 37.7 PG Mean Corpuscular Hemoglobin 32.9 % Concent Red Cell Distribution Width 15.4 % Platelet Count 116 TH/MM3 Mean Platelet Volume 8.6 FL Neutrophils (%) (Auto) 55.2 % Lymphocytes (%) (Auto) 27.2 % Monocytes (%) (Auto) 16.1 % Eosinophils (%) (Auto) 0.8 % Basophils (%) (Auto) 0.7 % Neutrophils # (Auto) 1.8 TH/MM3 Lymphocytes # (Auto) 0.9 TH/MM3 Monocytes # (Auto) 0.5 TH/MM3 Eosinophils # (Auto) 0.0 TH/MM3 Basophils # (Auto) 0.0 TH/MM3 CBC Comment DIFF FINAL Differential Comment Sodium Level 135 MEQ/L Potassium Level 4.8 MEQ/L Chloride Level 94 MEQ/L Carbon Dioxide Level 22.8 MEQ/L Anion Gap 18 MEQ/L Blood Urea Nitrogen 84 MG/DL Creatinine 10.56 MG/DL Estimat Glomerular Filtration 6 ML/MIN Rate Random Glucose 124 MG/DL Calcium Level 7.7 MG/DL Troponin I 0.11 NG/ML Physical Exam General General Appearance: Well Developed, Well Nourished, No Acute Distress Throat Throat Exam: Oral Mucosa [place] & Moist Pulmonary Resp Exam: Clear Bilaterally, Breath Sounds Equal Cardiology CV Exam: Regular, Normal Sinus Rhythm, Good Perfusion Gastrointestinal/Abdomen GI Exam: Soft, Non-Tender, Bowel Sounds Present Musculoskeletal MS Exam: Joints Intact, Normal Gait, Normal Tone Integumentary Skin Exam: Clear, Warm, Dry Extremeties Extremities Exam: No Edema, Pedal Pulses Palpable Neurologic Neuro Exam: Alert, Awake, Oriented, Speech Clear, Moving All Extremities Psychiatric Psych Exam: Appropriate Responses Assessment/Plan Assessment/Plan Physical Exam GENERAL: This is a well-nourished, gentleman laying in bed. awake alert and oriented x3 SKIN: No rashes, ecchymoses or lesions. Cool and dry. HEAD: Atraumatic. Normocephalic. No temporal or scalp tenderness. EYES: Pupils equal round and reactive. Extraocular motions intact. No scleral icterus. No injection or drainage. ENT: Nose without bleeding, purulent drainage or septal hematoma. Throat without erythema, tonsillar hypertrophy or exudate. Uvula midline. Airway patent. NECK: Trachea midline. No JVD or lymphadenopathy. Supple, nontender, no meningeal signs. CARDIOVASCULAR:tachycardic, irregular without murmurs, gallops, or rubs. Right arm AVF with + B/T RESPIRATORY: decreased breath sounds b/l, no rales or wheezes appreciated GASTROINTESTINAL: Abdomen soft, non-tender, nondistended. No hepato-splenomegaly , or palpable masses. No guarding. MUSCULOSKELETAL: Extremities without clubbing, cyanosis.. Trace pretibial edema , pedal pulses 1+ bilat. No joint tenderness, effusion, or edema noted. No calf tenderness. Negative Homans sign bilaterally. NEUROLOGICAL: Awake, oriented to self and place. Following simple commands. 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 Patient presented to emergency room with altered mental status, cough. Found in pulmonary edema. Fluid overload, pulmonary edema. Acute CHF. Had Echo recently January 2017, EF 55 to 60% -Nephrology following s/p HD treatment 03/22, -4.5L OFF BIPAP, on NC -Duonebs Acidosis, etiology unclear. Possible sepsis -Follow cultures, so far neg -Received Vanco and Zosyn. Continue Zosyn acidosis resoved cultures neg so far, anticipate weaning antibiotics soon Metabolic encephalopathy poss secondary to pulmonary edema, sepsis; now resolved -monitor neuro status. -CT of head neg End-stage renal disease, with hyperkalemia Patient underwent hemodialysis treatment Nephrology following Aflutter with RVR, tach Oli syndrome Continuous cardiac telemetry Resume Coreg and Cardizem Continue aspirin -Apprexciate Dr Mays's input, DR Palacios consulted Hypertension, stable Continue with home medications HIV Continue home medication Diabetes, diet control, blood glucose stable Accu-Cheks before meals and at bedtime with insulin therapy elevated Lipase on admission CT abd/pelvis neg lipase normal advance diet Home medications reviewed, initiated as indicated SCDs for DVT prophylaxis Patient's condition is guarded. Albina Muro MD Mar 24, 2017 14:51
[2017-03-24] MEDS: DEXT 5%-NACL 0.9% 1000 ML INJ 1,000 ML IV SCH (17:10)
[2017-03-24] MEDS: PIPERACIL-TAZO 2.25 GM PREMIX 50 ML IV SCH ×2 (17:16→18:36)
[2017-03-24] MEDS: SODIUM CHLORIDE 0.9% FLUSH 10 ML FLUSH IV FLUSH PRN (17:16)
[2017-03-24] MEDS: HEPARIN SODIUM - SQ 10,000 UNITS/ML VIAL SQ SCH (17:17)
[2017-03-24] MEDS ORDERED: ZOLPIDEM TARTRATE 5 MG TAB PO SCH (23:30)
[2017-03-25] VITALS (15 sets, daily range): BP systolic 112–171; BP diastolic 75–106; PULSE 112–125; RESP 13–28; TEMP 97.1–98.8; O2SAT 98–100
[2017-03-25] MEDS: HEPARIN SODIUM - SQ 10,000 UNITS/ML VIAL SQ SCH ×2 (00:17→13:25)
[2017-03-25] MEDS: PIPERACIL-TAZO 2.25 GM PREMIX 50 ML IV SCH ×3 (00:17→17:40)
[2017-03-25] MEDS: CHLORHEXIDINE GLUCONATE 2 % 1 PACK (2 CLOTHS)(taper/protocol) TOPICAL SCH (00:17)
[2017-03-25] MEDS: INSULIN ASPART SUPPLEMENTAL SCALE SQ SCH ×4 (07:00→21:00)
[2017-03-25] MEDS: DOCUSATE SODIUM 50 MG/SENNA 8.6 MG TAB PO SCH ×2 (09:00→20:26)
--- NOTE | 2017-03-25 09:17 | PD.CARD.PN ---
Subjective Subjective Remarks alert in nad Objective Vital Signs / I&O Vital Signs Date Time Temp Pulse Resp B/P Pulse Ox O2 Delivery O2 Flow Rate FiO2 03/25/17 06:00 117 03/25/17 04:00 112 03/25/17 04:00 97.4 112 13 143/93 100 03/25/17 02:00 124 03/25/17 00:00 124 03/25/17 00:00 98.8 124 14 171/104 100 03/24/17 22:00 126 03/24/17 21:57 100 Nasal Cannula 2.00 03/24/17 20:00 98.4 119 16 133/91 100 03/24/17 20:00 119 03/24/17 16:00 127 16 133/88 100 03/24/17 15:45 127 16 135/86 100 03/24/17 15:30 127 16 136/83 98 03/24/17 15:15 127 17 156/93 99 03/24/17 15:00 128 9 121/81 100 03/24/17 14:45 127 15 131/84 100 03/24/17 14:30 127 14 135/85 100 03/24/17 14:15 126 17 134/83 100 03/24/17 14:01 126 16 131/90 96 03/24/17 14:00 127 17 98 03/24/17 13:45 126 17 116/70 100 03/24/17 13:30 125 16 144/73 100 03/24/17 13:15 125 16 120/82 100 03/24/17 13:00 125 16 138/84 100 03/24/17 12:45 125 16 131/88 100 03/24/17 12:30 126 15 121/85 100 03/24/17 12:15 126 15 131/89 100 03/24/17 12:00 126 13 129/87 100 03/24/17 11:00 117 19 149/71 100 03/24/17 10:00 106 15 147/97 100 03/24/17 09:45 59 14 146/80 100 03/24/17 09:36 58 13 144/71 98 03/24/17 09:27 100 Nasal Cannula 2.00 I/O 03/24/17 03/24/17 03/24/17 03/25/17 03/25/17 03/25/17 07:00 15:00 23:00 07:00 15:00 23:00 Intake Total 60 ml 290 ml 135 ml 60 ml Output Total 0 ml 3300 ml Balance 60 ml -3010 ml 135 ml 60 ml Intake Oral 50 ml 240 ml 75 ml IV Total 10 ml 50 ml 60 ml 60 ml Output Urine Total 0 ml 0 ml Hemodialysis 3300 ml # Bowel Movements 0 2 2 Physical Exam GENERAL: SKIN: Warm and dry. HEAD: Normocephalic. EYES: No scleral icterus. No injection or drainage. NECK: Supple, trachea midline. No JVD or lymphadenopathy. CARDIOVASCULAR: Regular rate and rhythm without murmurs, gallops, or rubs. RESPIRATORY: Breath sounds equal bilaterally. No accessory muscle use. GASTROINTESTINAL: Abdomen soft, non-tender, nondistended. MUSCULOSKELETAL: No cyanosis, or edema. BACK: Nontender without obvious deformity. No CVA tenderness. Assessment and Plan Problem List: (1) ESRD (end stage renal disease) (2) A-fib (3) HIV disease (4) CAD (coronary artery disease) (5) Cardiomyopathy (6) DM (diabetes mellitus) (7) Non-compliance (8) Bradycardia (9) Tachy-luis syndrome Assessment and Plan 1.) Atrial fib - tachy luis syndrome, consult Dr Palacios, ac held due to av fistula hemorrhages requiring transfusion and medical and follow up noncompliance, continue prn cardizem drip to keep hr<130 Problem Qualifiers (1) CAD (coronary artery disease): Qualified Code: I25.118 - Coronary artery disease involving [place] coronary artery of [place] heart with other form of angina pectoris (2) Cardiomyopathy: Qualified Code: I42.9 - Cardiomyopathy, unspecified type (3) DM (diabetes mellitus): Onesimo Mays MD Mar 25, 2017 09:17
--- NOTE | 2017-03-25 09:34 | HHI.NPPN ---
Subjective General Problems: Anemia Renal Failure: Chronic, End Stage Renal Disease Interval History Sitting up in chair. States he wants to go home. He is tachycardic. (Moni Yung) Objective Data Data 03/24/17 03/25/17 19:00 07:00 Intake Total 290 ml 195 ml Output Total 3300 ml Balance -3010 ml 195 ml Intake Oral 240 ml 75 ml IV Total 50 ml 120 ml Output Urine Total 0 ml Hemodialysis 3300 ml # Bowel Movements 2 2 Vital Signs Date Time Temp Pulse Resp B/P Pulse Ox O2 Delivery O2 Flow Rate FiO2 03/25/17 09:00 125 15 148/79 100 03/25/17 08:00 130/84 03/25/17 07:00 97.1 118 16 140/90 100 03/25/17 06:00 117 03/25/17 04:00 112 03/25/17 04:00 97.4 112 13 143/93 100 03/25/17 02:00 124 03/25/17 00:00 124 03/25/17 00:00 98.8 124 14 171/104 100 03/24/17 22:00 126 03/24/17 21:57 100 Nasal Cannula 2.00 03/24/17 20:00 98.4 119 16 133/91 100 03/24/17 20:00 119 03/24/17 16:00 127 16 133/88 100 03/24/17 15:45 127 16 135/86 100 03/24/17 15:30 127 16 136/83 98 03/24/17 15:15 127 17 156/93 99 03/24/17 15:00 128 9 121/81 100 03/24/17 14:45 127 15 131/84 100 03/24/17 14:30 127 14 135/85 100 03/24/17 14:15 126 17 134/83 100 03/24/17 14:01 126 16 131/90 96 03/24/17 14:00 127 17 98 03/24/17 13:45 126 17 116/70 100 03/24/17 13:30 125 16 144/73 100 03/24/17 13:15 125 16 120/82 100 03/24/17 13:00 125 16 138/84 100 03/24/17 12:45 125 16 131/88 100 03/24/17 12:30 126 15 121/85 100 03/24/17 12:15 126 15 131/89 100 03/24/17 12:00 126 13 129/87 100 03/24/17 11:00 117 19 149/71 100 03/24/17 10:00 106 15 147/97 100 03/24/17 09:45 59 14 146/80 100 03/24/17 09:36 58 13 144/71 98 (Moni Yung) -: 03/24/17 0451 03/24/17 0451 Physical Exam General Appearance: Well Developed, Well Nourished, No Acute Distress, Comfortable ( Moni Yung) Throat Throat Exam: Oral Mucosa [place] & Moist (Moni Yung) Pulmonary Resp Exam: Clear Bilaterally, Breath Sounds Equal (Moni Yung) Cardiology CV Exam: Regular, Normal Sinus Rhythm, Good Perfusion (Moni Yung) Gastrointestinal/Abdomen GI Exam: Soft, Non-Tender, Bowel Sounds Present (Moni Yung) Musculoskeletal MS Exam: Joints Intact, Normal Gait, Normal Tone (Moni Yung) Integumentary Skin Exam: Clear, Warm, Dry (Moni Yung) Extremeties Extremities Exam: No Edema, Pedal Pulses Palpable (Moni Yung) Neurologic Neuro Exam: Alert, Awake, Oriented, Speech Clear, Moving All Extremities Neuro Remarks awake, follows commands (Moin Yung) Psychiatric Psych Exam: Appropriate Responses (Moni Yung) Assessment/Plan Discussed Condition With: Patient Assessment Summary: Anemia of CKD, End Stage Renal Disease Problem List: (1) Dependent on hemodialysis Plan: continue TTS dialysis, 3300 UF yesterday no acute renal concerns avoid IVF and gadolinium has functioning AVF for dialysis high protein diet, stable from renal perspective (2) SOB (shortness of breath) Plan: improved, may have been due to fluid overload UF as tolerated with dialysis (3) Encephalopathy Plan: improved, etiology uncertain continue supportive care (4) Hyperkalemia Plan: improved after hemodialysis, monitor (5) Anemia Plan: Epogen with HD (6) HIV disease Plan: on HAART (7) Atrial flutter Plan: on IV Cardizem may need AV jadon ablation and PPM placement snf anticoagulation to be decided in addition cardiology following he does not want to proceed with pacemaker placement at this time (Moni Yung) Plan patient was seen and examined. Agree with above assessment and plan. (Tyson Arboleda MD) Problem Qualifiers (1) Atrial flutter: Qualified Code: I48.92 - Atrial flutter, unspecified type Moni Yung Mar 25, 2017 09:34 Tyson Arboleda MD Mar 25, 2017 17:03
[2017-03-25] MEDS: CARVEDILOL 12.5 MG TAB PO SCH ×2 (09:37→20:26)
[2017-03-25] MEDS: ASPIRIN EC 81 MG TABEC PO SCH (09:37)
[2017-03-25] MEDS: FOLIC ACID 1 MG TAB PO SCH (09:37)
[2017-03-25] MEDS: DILTIAZEM-CD 180 MG CAP ER PO SCH (09:37)
[2017-03-25] MEDS: PANTOPRAZOLE SOD 40 MG DELAYED RELEASE TAB PO SCH (09:37)
[2017-03-25] MEDS: RIFAXIMIN 550 MG TAB PO SCH ×2 (09:38→20:26)
[2017-03-25] MEDS: SEVELAMER CARBONATE 800 MG TAB PO SCH ×3 (09:38→17:51)
[2017-03-25] MEDS: valACYclovir HCL 500 MG TAB PO SCH (09:38)
[2017-03-25] MEDS: SODIUM CHLORIDE 0.9% FLUSH 10 ML FLUSH IV FLUSH SCH ×2 (09:42→20:25)
[2017-03-25] MEDS: ACETAMINOPHEN/CODEINE 300 MG/30 MG TAB PO PRN ×3 (11:44→20:26)
[2017-03-25] MEDS ORDERED: ACETAMINOPHEN/CODEINE 300 MG/30 MG TAB PO PRN (14:00)
[2017-03-25] MEDS ORDERED: ZOLPIDEM TARTRATE 5 MG TAB PO PRN (14:00)
--- NOTE | 2017-03-25 14:30 | HHI.PR ---
Subjective Interval History awake alert and oriented complaining of chronic back bazan, wants home pain meds resumed HR mostly in 120s, but occasionally dips down no family at bedside Vitals/Results Intake & Output 03/24/17 03/24/17 03/25/17 15:00 23:00 07:00 Intake Total 290 ml 135 ml 60 ml Output Total 3300 ml Balance -3010 ml 135 ml 60 ml Intake Oral 240 ml 75 ml IV Total 50 ml 60 ml 60 ml Output Urine Total 0 ml Hemodialysis 3300 ml # Bowel Movements 2 2 Vital Signs Vital Signs Date Time Temp Pulse Resp B/P Pulse Ox O2 Delivery O2 Flow Rate FiO2 03/25/17 13:00 125 16 112/81 100 03/25/17 12:44 20 03/25/17 12:00 97.7 125 16 145/106 98 03/25/17 11:00 119 13 135/96 99 03/25/17 10:00 125 17 124/84 100 03/25/17 09:00 125 15 148/79 100 03/25/17 08:00 130/84 03/25/17 07:00 97.1 118 16 140/90 100 03/25/17 06:00 117 03/25/17 04:00 112 03/25/17 04:00 97.4 112 13 143/93 100 03/25/17 02:00 124 03/25/17 00:00 124 03/25/17 00:00 98.8 124 14 171/104 100 03/24/17 22:00 126 03/24/17 21:57 100 Nasal Cannula 2.00 03/24/17 20:00 98.4 119 16 133/91 100 03/24/17 20:00 119 03/24/17 16:00 127 16 133/88 100 03/24/17 15:45 127 16 135/86 100 03/24/17 15:30 127 16 136/83 98 03/24/17 15:15 127 17 156/93 99 03/24/17 15:00 128 9 121/81 100 03/24/17 14:45 127 15 131/84 100 03/24/17 14:30 127 14 135/85 100 CBC/BMP: 03/24/17 0451 03/24/17 0451 Physical Exam General General Appearance: Well Developed, Well Nourished, No Acute Distress, Comfortable Throat Throat Exam: Oral Mucosa [place] & Moist Pulmonary Resp Exam: Clear Bilaterally, Breath Sounds Equal Cardiology CV Exam: Regular, Normal Sinus Rhythm, Good Perfusion Gastrointestinal/Abdomen GI Exam: Soft, Non-Tender, Bowel Sounds Present Musculoskeletal MS Exam: Joints Intact, Normal Gait, Normal Tone Integumentary Skin Exam: Clear, Warm, Dry Extremeties Extremities Exam: No Edema, Pedal Pulses Palpable Neurologic Neuro Exam: Alert, Awake, Oriented, Speech Clear, Moving All Extremities Psychiatric Psych Exam: Appropriate Responses Assessment/Plan Assessment/Plan Physical Exam GENERAL: This is a well-nourished, gentleman laying in bed. awake alert and oriented x3 SKIN: No rashes, ecchymoses or lesions. Cool and dry. HEAD: Atraumatic. Normocephalic. No temporal or scalp tenderness. EYES: Pupils equal round and reactive. Extraocular motions intact. No scleral icterus. No injection or drainage. ENT: Nose without bleeding, purulent drainage or septal hematoma. Throat without erythema, tonsillar hypertrophy or exudate. Uvula midline. Airway patent. NECK: Trachea midline. No JVD or lymphadenopathy. Supple, nontender, no meningeal signs. CARDIOVASCULAR:tachycardic, irregular without murmurs, gallops, or rubs. Right arm AVF with + B/T RESPIRATORY: decreased breath sounds b/l, no rales or wheezes appreciated GASTROINTESTINAL: Abdomen soft, non-tender, nondistended. No hepato-splenomegaly , or palpable masses. No guarding. MUSCULOSKELETAL: Extremities without clubbing, cyanosis.. Trace pretibial edema , pedal pulses 1+ bilat. No joint tenderness, effusion, or edema noted. No calf tenderness. Negative Homans sign bilaterally. NEUROLOGICAL: Awake, oriented to self and place. Following simple commands. 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 Patient presented to emergency room with altered mental status, cough. Found in pulmonary edema. Fluid overload, pulmonary edema. Acute CHF. Had Echo recently January 2017, EF 55 to 60% -Nephrology following s/p HD treatment 03/22, and 03/24 OFF BIPAP, on NC -Duonebs Acidosis, etiology unclear. Possible sepsis -Follow cultures, so far neg -Received Vanco and Zosyn. Continue Zosyn acidosis resoved cultures neg so far, anticipate weaning antibiotics soon Metabolic encephalopathy poss secondary to pulmonary edema, sepsis; now resolved -monitor neuro status. -CT of head neg End-stage renal disease, with hyperkalemia Patient underwent hemodialysis treatment Nephrology following Aflutter with RVR, tach Oli syndrome Continuous cardiac telemetry Resume Coreg and Cardizem Continue aspirin -Apprexciate Dr Mays's input, -DR Palacios consulted, awaiting input Hypertension, stable Continue with home medications HIV Continue home medication Diabetes, diet control, blood glucose stable Accu-Cheks before meals and at bedtime with insulin therapy elevated Lipase on admission CT abd/pelvis neg lipase normal advance diet Home medications reviewed, initiated as indicated SCDs for DVT prophylaxis discussed with patient and nursing staff Albina Muro MD Mar 25, 2017 14:30
[2017-03-25] MEDS: DEXT 5%-NACL 0.9% 1000 ML INJ 1,000 ML IV SCH (20:00)
[2017-03-25] MEDS ORDERED: HYDROmorphone HCL PF 1 MG/ML VIAL IV SCH (22:45)
[2017-03-26] VITALS (13 sets, daily range): BP systolic 118–152; BP diastolic 77–96; PULSE 59–130; RESP 11–17; TEMP 97.6–98.9; O2SAT 99–100
[2017-03-26] MEDS: PIPERACIL-TAZO 2.25 GM PREMIX 50 ML IV SCH ×3 (01:17→14:44)
[2017-03-26] MEDS: HEPARIN SODIUM - SQ 10,000 UNITS/ML VIAL SQ SCH ×2 (01:17→14:48)
[2017-03-26] MEDS: CHLORHEXIDINE GLUCONATE 2 % 1 PACK (2 CLOTHS)(taper/protocol) TOPICAL SCH (04:00)
[2017-03-26] MEDS: INSULIN ASPART SUPPLEMENTAL SCALE SQ SCH ×4 (05:42→20:27)
[2017-03-26] MEDS: ACETAMINOPHEN/CODEINE 300 MG/30 MG TAB PO PRN ×3 (05:43→14:48)
[2017-03-26] MEDS: SEVELAMER CARBONATE 800 MG TAB PO SCH ×3 (08:56→17:49)
[2017-03-26] MEDS: valACYclovir HCL 500 MG TAB PO SCH (08:56)
[2017-03-26] MEDS: RIFAXIMIN 550 MG TAB PO SCH ×2 (08:56→20:27)
[2017-03-26] MEDS: FOLIC ACID 1 MG TAB PO SCH (08:56)
[2017-03-26] MEDS: ASPIRIN EC 81 MG TABEC PO SCH (08:56)
[2017-03-26] MEDS: SODIUM CHLORIDE 0.9% FLUSH 10 ML FLUSH IV FLUSH SCH ×2 (08:56→20:26)
[2017-03-26] MEDS: DOCUSATE SODIUM 50 MG/SENNA 8.6 MG TAB PO SCH ×2 (08:56→20:27)
[2017-03-26] MEDS: PANTOPRAZOLE SOD 40 MG DELAYED RELEASE TAB PO SCH (08:56)
--- NOTE | 2017-03-26 10:05 | PD.CARD.PN ---
Subjective Subjective Remarks asleep in nad Objective Vital Signs / I&O Vital Signs Date Time Temp Pulse Resp B/P Pulse Ox O2 Delivery O2 Flow Rate FiO2 03/26/17 06:00 59 03/26/17 04:00 98.1 60 14 146/82 100 03/26/17 04:00 60 03/26/17 02:00 105 03/26/17 00:00 121 03/26/17 00:00 98.6 121 12 118/84 99 03/25/17 22:00 121 03/25/17 20:00 97.8 118 28 115/75 100 03/25/17 20:00 118 03/25/17 19:10 100 21 03/25/17 16:58 14 03/25/17 13:00 125 16 112/81 100 03/25/17 12:00 97.7 125 16 145/106 98 03/25/17 11:00 119 13 135/96 99 I/O 03/25/17 03/25/17 03/25/17 03/26/17 03/26/17 03/26/17 07:00 15:00 23:00 07:00 15:00 23:00 Intake Total 60 ml 420 ml 360 ml 445 ml Output Total 0 ml 0 ml Balance 60 ml 420 ml 360 ml 445 ml Intake Oral 360 ml 360 ml 360 ml IV Total 60 ml 60 ml 0 ml 85 ml Output Urine Total 0 ml 0 ml # Bowel Movements 1 0 Physical Exam GENERAL: SKIN: Warm and dry. HEAD: Normocephalic. EYES: No scleral icterus. No injection or drainage. NECK: Supple, trachea midline. No JVD or lymphadenopathy. CARDIOVASCULAR: Regular rate and rhythm without murmurs, gallops, or rubs. RESPIRATORY: Breath sounds equal bilaterally. No accessory muscle use. GASTROINTESTINAL: Abdomen soft, non-tender, nondistended. MUSCULOSKELETAL: No cyanosis, or edema. BACK: Nontender without obvious deformity. No CVA tenderness. Assessment and Plan Problem List: (1) ESRD (end stage renal disease) (2) A-fib (3) HIV disease (4) CAD (coronary artery disease) (5) Cardiomyopathy (6) DM (diabetes mellitus) (7) Non-compliance (8) Bradycardia (9) Tachy-luis syndrome Assessment and Plan 1.) Atrial fib - hr @ 60 in aflutter with addition of coreg, tachy luis syndrome, consult Dr Palacios, ac held due to av fistula hemorrhages requiring transfusion and medical and follow up noncompliance, continue prn cardizem drip to keep hr<130 Problem Qualifiers (1) CAD (coronary artery disease): Qualified Code: I25.118 - Coronary artery disease involving [place] coronary artery of [place] heart with other form of angina pectoris (2) Cardiomyopathy: Qualified Code: I42.9 - Cardiomyopathy, unspecified type (3) DM (diabetes mellitus): Onesimo Mays MD Mar 26, 2017 10:05
[2017-03-26] MEDS: EPOETIN ALFA 10,000 UNITS/ML VIAL IV PRN (12:04)
--- NOTE | 2017-03-26 12:05 | HHI.NPPN ---
Subjective General Problems: Anemia Renal Failure: Chronic, End Stage Renal Disease History of Present Illness 66 y/o AAM patient who was brought to ER by his sister who reports he has had altered mental status/ He has PMH of ESRD, normal TTS HD schedule. Other PMH of COPD, HIV, CHF, substance abuse, TIA, diabetes, history of A. fib. Additional Remarks Patient now on HD, mild SOB, no chest pain, no dizziness. Review of Systems General Constitutional: Fatigue Respiratory Lungs: Wheeze Cardiovascular Cardiac: COONEY Objective Data Data 03/25/17 03/26/17 19:00 07:00 Intake Total 420 ml 805 ml Output Total 0 ml 0 ml Balance 420 ml 805 ml Intake Oral 360 ml 720 ml IV Total 60 ml 85 ml Output Urine Total 0 ml 0 ml # Bowel Movements 1 0 Vital Signs Date Time Temp Pulse Resp B/P Pulse Ox O2 Delivery O2 Flow Rate FiO2 03/26/17 10:00 65 03/26/17 08:00 59 03/26/17 08:00 97.6 59 11 146/79 100 03/26/17 06:00 59 03/26/17 04:00 98.1 60 14 146/82 100 03/26/17 04:00 60 03/26/17 02:00 105 03/26/17 00:00 121 03/26/17 00:00 98.6 121 12 118/84 99 03/25/17 22:00 121 03/25/17 20:00 97.8 118 28 115/75 100 03/25/17 20:00 118 03/25/17 19:10 100 21 03/25/17 16:58 14 03/25/17 13:00 125 16 112/81 100 -: 03/24/17 0451 03/24/17 0451 Physical Exam General Appearance: No Acute Distress, Comfortable, Malnourished Throat Throat Exam: Oral Mucosa [place] & Moist Pulmonary Resp Exam: Clear Bilaterally, Breath Sounds Equal Cardiology CV Exam: Regular, Normal Sinus Rhythm, Good Perfusion Gastrointestinal/Abdomen GI Exam: Soft, Non-Tender, Bowel Sounds Present Musculoskeletal MS Exam: Joints Intact, Normal Gait, Normal Tone Integumentary Skin Exam: Clear, Warm, Dry Extremeties Extremities Exam: Trace Edema Neurologic Neuro Exam: Alert, Awake, Oriented Psychiatric Psych Exam: Appropriate Responses Assessment/Plan Discussed Condition With: Patient Assessment Summary: Anemia of CKD, End Stage Renal Disease Problem List: (1) Dependent on hemodialysis Plan: continue TTS dialysis, no acute renal concerns avoid IVF and gadolinium has functioning AVF for dialysis high protein diet, HD now, and remove more fluid as tolerated. (2) SOB (shortness of breath) Plan: improved, may have been due to fluid overload UF as tolerated with dialysis (3) Encephalopathy Plan: improved, etiology uncertain continue supportive care (4) Hyperkalemia Plan: improved after hemodialysis, monitor (5) Anemia Plan: Epogen with HD (6) HIV disease Plan: on HAART (7) Atrial flutter Plan: on IV Cardizem may need AV jadon ablation and PPM placement terminal gauger anticoagulation to be decided in addition cardiology following he does not want to proceed with pacemaker placement at this time Problem Qualifiers (1) Atrial flutter: Qualified Code: I48.92 - Atrial flutter, unspecified type Ranjit Vargas MD Mar 26, 2017 12:05
[2017-03-26] MEDS: CARVEDILOL 12.5 MG TAB PO SCH ×2 (14:44→20:26)
[2017-03-26] MEDS: DILTIAZEM-CD 180 MG CAP ER PO SCH (14:44)
[2017-03-26] MEDS ORDERED: DILTIAZEM HCL 25 MG/5 ML VIAL IV ONE (17:45)
--- NOTE | 2017-03-26 17:45 | HHI.PR ---
Subjective Subjective Remarks Heart rate 130s, regular, atrial tach versus atrial flutter Cardizem drip Awake Abdomen taut (Kiesha Hebert) Review of Systems Constitutional Constitutional: Fatigue, Weakness Constitutional Remarks 10 point ROS done positives noted (Kiesha Hebert) Pulmonary Respiratory: Shortness of Breath (low volumes) (Kiesha Hebert) Cardiology CV: Palpitations CV Remarks Tachycardia persist or rate 130 (Kiesha Hebert) GI/Abdomen GI/Abdominal Exam: Nausea (occasional) GI/Abdomen Remarks Decreased appetite (Kiesha Hebert) Musculoskeletal MS: Weakness, Stiffness (Kiesha Hebert) Neurologic Neurologic: Lethargic (Kiesha Hebert) Psychiatric Psychiatric: Anxiety (occasional) (Kiesha Hebert) Vitals/Results Intake & Output 03/25/17 03/25/17 03/26/17 15:00 23:00 07:00 Intake Total 420 ml 360 ml 445 ml Output Total 0 ml 0 ml Balance 420 ml 360 ml 445 ml Intake Oral 360 ml 360 ml 360 ml IV Total 60 ml 0 ml 85 ml Output Urine Total 0 ml 0 ml # Bowel Movements 1 0 Vital Signs Vital Signs Date Time Temp Pulse Resp B/P Pulse Ox O2 Delivery O2 Flow Rate FiO2 03/26/17 16:00 130 03/26/17 16:00 98.4 129 17 145/96 100 03/26/17 14:00 128 03/26/17 12:00 96 03/26/17 12:00 98.9 96 13 152/95 100 03/26/17 10:00 65 03/26/17 08:00 59 03/26/17 08:00 97.6 59 11 146/79 100 03/26/17 06:00 59 03/26/17 04:00 98.1 60 14 146/82 100 03/26/17 04:00 60 03/26/17 02:00 105 03/26/17 00:00 121 03/26/17 00:00 98.6 121 12 118/84 99 03/25/17 22:00 121 03/25/17 20:00 97.8 118 28 115/75 100 03/25/17 20:00 118 03/25/17 19:10 100 21 (Kiesha Hebert) CBC/BMP: 03/24/17 0451 03/24/17 0451 Imaging Remarks Last Impressions Chest X-Ray 03/22/17 0808 Signed Impressions: Service Date/Time: Wednesday, March 22, 2017 08:12 - CONCLUSION: 1. Advanced cardiomegaly and probable interstitial edema. Oscar Beaulieu MD Head CT 03/22/17 0000 Signed Impressions: Service Date/Time: Wednesday, March 22, 2017 21:15 - CONCLUSION: Nonspecific white matter changes. No acute disease. Jorge Chrisitansen MD Abdomen/Pelvis CT 03/22/17 0000 Signed Impressions: Service Date/Time: Wednesday, March 22, 2017 21:19 - CONCLUSION: 1. No evidence for pancreatitis. 2. Atrophic bilateral kidneys with bilateral renal cysts. 3. Right pleural effusion. 4. Questionable wall thickening of the ascending and transverse colon. Jorge Christiansen MD Current Medications Administered Medications Medications (Trade) Dose Ordered Sig/Michael Route PRN Reason Start Time Stop Time Status Last Admin Dose Admin Sodium Chloride (NS Flush) 2 ml UNSCH PRN IV FLUSH FLUSH AFTER USING IV ACCESS 03/22/17 11:45 03/24/17 17:16 Sodium Chloride (NS Flush) 2 ml BID IV FLUSH 03/22/17 21:00 03/26/17 08:56 Heparin Sodium (Porcine) (Heparin Inj) 5,000 units Q12H SQ 03/22/17 13:00 03/26/17 14:48 Senna/Docusate Sodium (Munira-Colace) 1 tab BID PO 03/22/17 21:00 03/26/17 08:56 Heparin Sodium (Porcine) (Heparin Inj) 8,000 units UNSCH PRN IVF WITH DIALYSIS 03/22/17 15:15 03/26/17 14:57 Gelatin 1 foam 1 foam UNSCH PRN TOP SEE LABEL COMMENTS 03/22/17 15:15 03/24/17 12:30 Piperacillin Sod/ Tazobactam Sod (Zosyn 2.25 Gm Premix) 50 ml @ 100 mls/hr Q8H IV 03/23/17 01:00 03/26/17 14:44 Aspirin (Ecotrin Ec) 81 mg DAILY PO 03/23/17 09:00 03/26/17 08:56 Carvedilol (Coreg) 25 mg Q12HR PO 03/22/17 21:00 03/26/17 14:44 Diltiazem HCl (Cardizem Cd) 360 mg DAILY PO 03/23/17 00:40 03/26/17 14:44 Folic Acid (Folate) 1 mg DAILY PO 03/23/17 09:00 03/26/17 08:56 Pantoprazole Sodium (Protonix) 40 mg DAILY PO 03/23/17 09:00 03/26/17 08:56 Rifaximin (Xifaxan) 550 mg BID PO 03/22/17 21:00 03/26/17 08:56 Sevelamer Carbonate (Renvela) 1,600 mg TID PO 03/22/17 18:00 03/26/17 14:44 Valacyclovir HCl (Valtrex) 1,000 mg DAILY PO 03/23/17 09:00 03/26/17 08:56 Chlorhexidine Gluconate 3 pack 3 pack DAILY@04 TOPICAL 03/23/17 04:00 03/27/17 04:01 03/26/17 04:00 Dextrose/Sodium Chloride (D5W-NS 1000 ml Inj) 1,000 ml @ 30 mls/hr Q24H IV 03/22/17 20:00 03/22/17 20:00 Epoetin Erick 5000 units 5,000 units UNSCH PRN IV WITH DIALYSIS 03/23/17 13:00 03/26/17 12:04 Diltiazem HCl/ Sodium Chloride (Cardizem Inj/NS Inj) 125 ml @ 0 mls/hr TITRATE IV 03/23/17 16:15 03/26/17 16:33 Acetaminophen/ Codeine Phosphate (Tylenol-Codeine #3) 1 tab Q4H PRN PO PAIN SCALE 3 TO 10 03/25/17 11:15 03/26/17 14:48 (Kiesha Hebert) Physical Exam General General Appearance: No Acute Distress, Comfortable, Anxious (mild), Malnourished (Kiesha Hebert) Eyes Eye Exam: Pupils Equal (Kiesha Hebert) Ears & Nose Ears & Nose Exam: Nasal Mucosa [place] (pale) (Fielding,Susan M. TELECOMMUNICATIONS MANAGER) Throat Throat Exam: Oral Mucosa [place] & Moist (Fielding,Kiesha M. TELECOMMUNICATIONS MANAGER) Neck Neck Exam: Neck Supple (FieldingKiesha M. TELECOMMUNICATIONS MANAGER) Pulmonary Resp Exam: Clear Bilaterally, Breath Sounds Equal, Decreased Bases, Diminished Breath Sounds (Emilee,Kiesha M. TELECOMMUNICATIONS MANAGER) Cardiology CV Exam: Regular, Normal Sinus Rhythm, Good Perfusion (FieldingBeatrizKiesha M. TELECOMMUNICATIONS MANAGER) Gastrointestinal/Abdomen GI Exam: Soft, Non-Tender, Bowel Sounds Present (FieldingKiesha M. TELECOMMUNICATIONS MANAGER) Musculoskeletal MS Exam: Joints Intact, Normal Gait, Normal Tone (FieldingBeatrizKiesha M. TELECOMMUNICATIONS MANAGER) Integumentary Skin Exam: Clear, Warm, Dry (FieldingBeatrizKiesha M. TELECOMMUNICATIONS MANAGER) Extremeties Extremities Exam: Trace Edema (Emilee,Kiesha M. TELECOMMUNICATIONS MANAGER) Neurologic Neuro Exam: Alert, Awake, Oriented Neuro Remarks Mild lethargy noted (EmileeBeatriz ortaan M. TELECOMMUNICATIONS MANAGER) Psychiatric Psych Exam: Appropriate Responses (Beatriz Hebertan M. TELECOMMUNICATIONS MANAGER) Assessment/Plan Assessment/Plan Assessment and Plan Problem List: (1) Altered mental status (2) Pulmonary edema (3) Encephalopathy (4) HIV disease (5) DM (diabetes mellitus) (6) HTN (hypertension) (7) Cardiomyopathy (8) End stage renal disease (9) CAD (coronary artery disease) (10) Non-compliance (11) COPD (chronic obstructive pulmonary disease) (12) Atrial fibrillation (13) Hyperkalemia (14) Acute diastolic CHF (congestive heart failure) (15) Atrial flutter Assessment and Plan 66-year-old male with history of HIV, end-stage renal disease on dialysis, atrial fibrillation on aspirin, 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 Patient presented to emergency room with altered mental status, cough. Found in pulmonary edema. Still requiring intensive care monitoring pulmonary edema. Acute CHF. Had Echo recently January 2017, EF 55 to 60% -Nephrology following s/p HD treatment 03/22, and 03/24 Weaned off BIPAP, on NC -Duonebs Lactic Acidosis, . Possible sepsis cultures, negative, IV antibiotics, wean seen acidosis resoved Metabolic encephalopathy poss secondary to pulmonary edema, sepsis; now resolved -monitor neuro status. Still has periods of lethargy End-stage renal disease, with hyperkalemia Hemodialysis, appreciate renal consult and plan a care Aflutter with RVR, attempting to start by mouth Cardizem today, heart rate back up to the 130s Rebolus with IV Cardizem, increase Cardizem drip if it is still hanging Continue ECG monitoring, and Coreg, ASA -Apprexciate Dr Mays's input, -DR Palacios consulted, awaiting input Hypertension, stable Medical management HIV Continue home medication Diabetes, diet control, blood glucose stable Accu-Cheks before meals and at bedtime with insulin therap SCDs for DVT prophylaxisis Discussed with patient Discussed with Dr. petersen, seen on his behalf (Kiesha Hebert) Assessment/Plan pt is seen & examined d/w PT d/w RN recurrent A fib w RVR tachy luis syndrome ,may need PPP pt is refsuing ," I d'ont want pacemaker", Importance was explained , he still refused it card f/u cont current tx will f/u (Edward Petersen MD) Kiesha Hebert Mar 26, 2017 17:45 Edawrd Petersen MD Mar 26, 2017 18:31
[2017-03-26] MEDS: DEXT 5%-NACL 0.9% 1000 ML INJ 1,000 ML IV SCH (20:00)
[2017-03-26] MEDS: HYDROmorphone HCL PF 1 MG/ML VIAL IV PRN (20:27)
[2017-03-27] VITALS (20 sets, daily range): BP systolic 112–171; BP diastolic 56–109; PULSE 62–123; RESP 12–22; TEMP 98.2–99.3; O2SAT 96–100
[2017-03-27] MEDS: HEPARIN SODIUM - SQ 10,000 UNITS/ML VIAL SQ SCH ×2 (00:31→12:47)
[2017-03-27] MEDS: PIPERACIL-TAZO 2.25 GM PREMIX 50 ML IV SCH ×3 (00:31→17:00)
[2017-03-27] MEDS: HYDROmorphone HCL PF 1 MG/ML VIAL IV PRN ×5 (00:32→20:43)
[2017-03-27] MEDS: INSULIN ASPART SUPPLEMENTAL SCALE SQ SCH ×4 (05:50→20:44)
[2017-03-27] MEDS: CHLORHEXIDINE GLUCONATE 2 % 1 PACK (2 CLOTHS)(taper/protocol) TOPICAL SCH (05:51)
[2017-03-27 06:34] LABS: HEMATOCRIT 36.2 % (39.0-51.0); MEAN CELL VOLUME 113.8 FL (80.0-100.0); MEAN CORPUSCULAR HEMOGLOBIN 38.7 PG (27.0-34.0); PLATELET COUNT 105 TH/MM3 (150-450); RED BLOOD COUNT 3.18 MIL/MM3 (4.50-5.90); RED CELL DISTRIBUTION WIDTH 15.5 % (11.6-17.2); REVIEW FLAG FINAL; WHITE BLOOD COUNT 4.1 TH/MM3 (4.0-11.0)
[2017-03-27 07:05] LABS: POTASSIUM 4.5 MEQ/L (3.5-5.1)
[2017-03-27] MEDS: SEVELAMER CARBONATE 800 MG TAB PO SCH ×3 (09:02→17:00)
[2017-03-27] MEDS: SODIUM CHLORIDE 0.9% FLUSH 10 ML FLUSH IV FLUSH PRN (09:03)
[2017-03-27] MEDS: DILTIAZEM-CD 180 MG CAP ER PO SCH (09:03)
[2017-03-27] MEDS: CARVEDILOL 12.5 MG TAB PO SCH ×2 (09:03→20:44)
[2017-03-27] MEDS: valACYclovir HCL 500 MG TAB PO SCH (09:03)
[2017-03-27] MEDS: FOLIC ACID 1 MG TAB PO SCH (09:03)
[2017-03-27] MEDS: DOCUSATE SODIUM 50 MG/SENNA 8.6 MG TAB PO SCH ×2 (09:03→20:44)
[2017-03-27] MEDS: ASPIRIN EC 81 MG TABEC PO SCH (09:03)
[2017-03-27] MEDS: PANTOPRAZOLE SOD 40 MG DELAYED RELEASE TAB PO SCH (09:03)
[2017-03-27] MEDS: SODIUM CHLORIDE 0.9% FLUSH 10 ML FLUSH IV FLUSH SCH ×2 (09:03→20:43)
[2017-03-27] MEDS: RIFAXIMIN 550 MG TAB PO SCH ×2 (09:03→20:44)
--- NOTE | 2017-03-27 09:39 | HHI.PR ---
Subjective Subjective Remarks awake, oriented x 2-3 no cp no sob HR 115, aflutter doesn't want pacemaker wants to go to regular floor Review of Systems Constitutional Constitutional Remarks 12 point ROS completed, unreliable Vitals/Results Intake & Output 03/26/17 03/26/17 03/27/17 15:00 23:00 07:00 Intake Total 480 ml 120 ml 338 ml Output Total 3000 ml 0 ml 0 ml Balance -2520 ml 120 ml 338 ml Intake Oral 480 ml 120 ml 240 ml IV Total 0 ml 98 ml Output Urine Total 0 ml 0 ml 0 ml Stool Total 0 ml Hemodialysis 3000 ml # Bowel Movements 0 0 Vital Signs Vital Signs Date Time Temp Pulse Resp B/P Pulse Ox O2 Delivery O2 Flow Rate FiO2 03/27/17 07:28 98 03/27/17 06:00 123 03/27/17 04:00 99.1 118 15 119/72 99 03/27/17 04:00 118 03/27/17 02:00 68 03/27/17 00:00 99.3 69 12 171/103 100 03/27/17 00:00 69 03/26/17 22:00 62 03/26/17 20:00 61 03/26/17 20:00 98.6 61 14 137/77 100 03/26/17 19:32 100 21 03/26/17 18:00 97 03/26/17 16:00 130 03/26/17 16:00 98.4 129 17 145/96 100 03/26/17 14:00 128 03/26/17 12:00 96 03/26/17 12:00 98.9 96 13 152/95 100 03/26/17 10:00 65 CBC/BMP: 03/27/17 0603 03/27/17 0603 Lab Results Laboratory Tests Test 03/27/17 06:03 White Blood Count 4.1 TH/MM3 Red Blood Count 3.18 MIL/MM3 Hemoglobin 12.3 GM/DL Hematocrit 36.2 % Mean Corpuscular Volume 113.8 FL Mean Corpuscular Hemoglobin 38.7 PG Mean Corpuscular Hemoglobin 34.0 % Concent Red Cell Distribution Width 15.5 % Platelet Count 105 TH/MM3 Mean Platelet Volume 9.1 FL Sodium Level 131 MEQ/L Potassium Level 4.5 MEQ/L Chloride Level 93 MEQ/L Carbon Dioxide Level 25.0 MEQ/L Anion Gap 13 MEQ/L Blood Urea Nitrogen 62 MG/DL Creatinine 7.80 MG/DL Estimat Glomerular Filtration 8 ML/MIN Rate Random Glucose 107 MG/DL Calcium Level 7.9 MG/DL Physical Exam General General Appearance: Well Developed, No Acute Distress, Comfortable, Malnourished Eyes Eye Exam: Pupils Equal Ears & Nose Ears & Nose Exam: Nasal Mucosa [place] Throat Throat Exam: Oral Mucosa [place] & Moist Neck Neck Exam: Neck Supple Pulmonary Resp Exam: Decreased Bases, Diminished Breath Sounds Cardiology CV Exam: Regular, Normal Sinus Rhythm, Good Perfusion Gastrointestinal/Abdomen GI Exam: Non-Tender, Bowel Sounds Present, Distended Musculoskeletal MS Exam: Joints Intact, Normal Gait, Normal Tone Integumentary Skin Exam: Clear, Warm, Dry Extremeties Extremities Exam: Pedal Pulses Palpable, Trace Edema Extremeties Remarks AVF right arm + B/T Neurologic Neuro Exam: Alert, Awake, Speech Clear, Moving All Extremities, No Focal Deficits Psychiatric Psych Exam: Appropriate Responses VTE Prophylaxis VTE Prophylaxis Meds: Heparin Assessment/Plan Problem List: (1) Altered mental status (2) Tachy-luis syndrome (3) A-fib (4) ESRD (end stage renal disease) (5) Acute diastolic CHF (congestive heart failure) (6) Non-compliance (7) HTN (hypertension) (8) DM (diabetes mellitus) (9) Cardiomyopathy (10) HIV disease (11) COPD (chronic obstructive pulmonary disease) Assessment/Plan 66-year-old male with history of HIV, end-stage renal disease on dialysis, atrial fibrillation on aspirin, 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 Patient presented to emergency room with altered mental status, cough. Found in pulmonary edema. Still requiring intensive care monitoring Pulm edema, fluid overload. Acute CHF. Had Echo recently January 2017, EF 55 to 60% -Nephrology following -s/p HD treatment 03/22, and 03/24 -Weaned off BIPAP, on NC -Duonebs Lactic Acidosis, . Possible sepsis -cultures, negative, on IV antibiotics. Will dc tomorrow -acidosis resolved Metabolic encephalopathy poss secondary to pulmonary edema, sepsis; now resolved -monitor neuro status. -improved End-stage renal disease, with hyperkalemia Hemodialysis, appreciate renal consult and plan a care Aflutter with RVR, poss. tachy luis syndrome -continue PO Cardizem 360 mg po daily -Cardizem drip off for now -continue Coreg 25 mg po BID -continue ASA -appreciate Dr Mays's input, -Dr Palacios consulted, awaiting input -may need PPM, pt. refusing any procedures, has been discussed extensively. Hypertension, stable -Medical management HIV Continue home medication Diabetes, diet control, blood glucose stable Accu-Cheks before meals and at bedtime with insulin therap Heparin/SCDs for DVT prophylaxisis Labs reviewed inc. activity, OOB Keep in ICU for now D/W RN D/W Dr. Petersen D/W pt This patient was seen by myself and Dr. Petersen, this note is written on her behalf Problem Qualifiers (1) Altered mental status: Qualified Code: R41.82 - Altered mental status, unspecified altered mental status type (2) A-fib: Qualified Code: I48.91 - Atrial fibrillation, unspecified type (3) HTN (hypertension): Qualified Code: I10 - Essential hypertension (4) DM (diabetes mellitus): (5) Cardiomyopathy: Qualified Code: I42.9 - Cardiomyopathy, unspecified type (6) COPD (chronic obstructive pulmonary disease): Qualified Code: J44.9 - Chronic obstructive pulmonary disease, unspecified COPD type Shanthi Alarcon Mar 27, 2017 09:38
--- NOTE | 2017-03-27 10:28 | PD.CARD.PN ---
Subjective Subjective Remarks alert in nad Objective Vital Signs / I&O Vital Signs Date Time Temp Pulse Resp B/P Pulse Ox O2 Delivery O2 Flow Rate FiO2 03/27/17 07:28 98 03/27/17 06:00 123 03/27/17 04:00 99.1 118 15 119/72 99 03/27/17 04:00 118 03/27/17 02:00 68 03/27/17 00:00 99.3 69 12 171/103 100 03/27/17 00:00 69 03/26/17 22:00 62 03/26/17 20:00 61 03/26/17 20:00 98.6 61 14 137/77 100 03/26/17 19:32 100 21 03/26/17 18:00 97 03/26/17 16:00 130 03/26/17 16:00 98.4 129 17 145/96 100 03/26/17 14:00 128 03/26/17 12:00 96 03/26/17 12:00 98.9 96 13 152/95 100 I/O 03/26/17 03/26/17 03/26/17 03/27/17 03/27/17 03/27/17 07:00 15:00 23:00 07:00 15:00 23:00 Intake Total 445 ml 480 ml 120 ml 338 ml Output Total 3000 ml 0 ml 0 ml Balance 445 ml -2520 ml 120 ml 338 ml Intake Oral 360 ml 480 ml 120 ml 240 ml IV Total 85 ml 0 ml 98 ml Output Urine Total 0 ml 0 ml 0 ml Stool Total 0 ml Hemodialysis 3000 ml # Bowel Movements 0 0 Physical Exam GENERAL: SKIN: Warm and dry. HEAD: Normocephalic. EYES: No scleral icterus. No injection or drainage. NECK: Supple, trachea midline. No JVD or lymphadenopathy. CARDIOVASCULAR: Regular rate and rhythm without murmurs, gallops, or rubs. RESPIRATORY: Breath sounds equal bilaterally. No accessory muscle use. GASTROINTESTINAL: Abdomen soft, non-tender, nondistended. MUSCULOSKELETAL: No cyanosis, or edema. BACK: Nontender without obvious deformity. No CVA tenderness. Laboratory Laboratory Tests Test 03/27/17 06:03 White Blood Count 4.1 TH/MM3 Red Blood Count 3.18 MIL/MM3 Hemoglobin 12.3 GM/DL Hematocrit 36.2 % Mean Corpuscular Volume 113.8 FL Mean Corpuscular Hemoglobin 38.7 PG Mean Corpuscular Hemoglobin 34.0 % Concent Red Cell Distribution Width 15.5 % Platelet Count 105 TH/MM3 Mean Platelet Volume 9.1 FL Sodium Level 131 MEQ/L Potassium Level 4.5 MEQ/L Chloride Level 93 MEQ/L Carbon Dioxide Level 25.0 MEQ/L Anion Gap 13 MEQ/L Blood Urea Nitrogen 62 MG/DL Creatinine 7.80 MG/DL Estimat Glomerular Filtration 8 ML/MIN Rate Random Glucose 107 MG/DL Calcium Level 7.9 MG/DL Assessment and Plan Problem List: (1) ESRD (end stage renal disease) (2) A-fib (3) HIV disease (4) CAD (coronary artery disease) (5) Cardiomyopathy (6) DM (diabetes mellitus) (7) Non-compliance (8) Bradycardia (9) Tachy-luis syndrome Assessment and Plan 1.) Atrial fib - hr ranging between 60 and 130 in aflutter with addition of coreg, tachy luis syndrome, consult Dr Palacios, ac held due to av fistula hemorrhages requiring transfusion and medical and follow up noncompliance, continue prn cardizem drip to keep hr<130 Problem Qualifiers (1) A-fib: Qualified Code: I48.91 - Atrial fibrillation, unspecified type (2) CAD (coronary artery disease): Qualified Code: I25.118 - Coronary artery disease involving [place] coronary artery of [place] heart with other form of angina pectoris (3) Cardiomyopathy: Qualified Code: I42.9 - Cardiomyopathy, unspecified type (4) DM (diabetes mellitus): Onesimo Mays MD Mar 27, 2017 10:28
--- NOTE | 2017-03-27 11:59 | HHI.NPPN ---
Subjective General Problems: Anemia Renal Failure: Chronic, End Stage Renal Disease History of Present Illness 66 y/o AAM patient who was brought to ER by his sister who reports he has had altered mental status/ He has PMH of ESRD, normal TTS HD schedule. Other PMH of COPD, HIV, CHF, substance abuse, TIA, diabetes, history of A. fib. Additional Remarks Patient is alert, not in distress, no SOB. Review of Systems General Constitutional: Fatigue Respiratory Lungs: Wheeze Cardiovascular Cardiac: COONEY Objective Data Data 03/26/17 03/27/17 19:00 07:00 Intake Total 480 ml 458 ml Output Total 3000 ml 0 ml Balance -2520 ml 458 ml Intake Oral 480 ml 360 ml IV Total 98 ml Output Urine Total 0 ml 0 ml Stool Total 0 ml Hemodialysis 3000 ml # Bowel Movements 0 Vital Signs Date Time Temp Pulse Resp B/P Pulse Ox O2 Delivery O2 Flow Rate FiO2 03/27/17 11:00 70 14 133/66 99 03/27/17 10:00 116 03/27/17 10:00 116 14 129/89 99 03/27/17 09:00 117 13 121/90 100 03/27/17 08:00 98.7 119 22 131/109 100 03/27/17 08:00 119 03/27/17 07:28 98 03/27/17 07:00 121 18 136/97 100 03/27/17 06:00 123 03/27/17 04:00 99.1 118 15 119/72 99 03/27/17 04:00 118 03/27/17 02:00 68 03/27/17 00:00 99.3 69 12 171/103 100 03/27/17 00:00 69 03/26/17 22:00 62 03/26/17 20:00 61 03/26/17 20:00 98.6 61 14 137/77 100 03/26/17 19:32 100 21 03/26/17 18:00 97 03/26/17 16:00 130 03/26/17 16:00 98.4 129 17 145/96 100 03/26/17 14:00 128 03/26/17 12:00 96 03/26/17 12:00 98.9 96 13 152/95 100 -: 03/27/17 0603 03/27/17 0603 Physical Exam General Appearance: Well Developed, No Acute Distress, Comfortable, Malnourished Eyes Eye Exam: Pupils Equal Ears & Nose Ears & Nose Exam: Nasal Mucosa [place] Throat Throat Exam: Oral Mucosa [place] & Moist Neck Neck Exam: Neck Supple Pulmonary Resp Exam: Decreased Bases, Diminished Breath Sounds Cardiology CV Exam: Regular, Normal Sinus Rhythm, Good Perfusion Gastrointestinal/Abdomen GI Exam: Non-Tender, Bowel Sounds Present, Distended Musculoskeletal MS Exam: Joints Intact, Normal Gait, Normal Tone Integumentary Skin Exam: Clear, Warm, Dry Extremeties Extremities Exam: Pedal Pulses Palpable, Trace Edema Neurologic Neuro Exam: Alert, Awake, Speech Clear, Moving All Extremities, No Focal Deficits Psychiatric Psych Exam: Appropriate Responses Assessment/Plan Discussed Condition With: Patient Assessment Summary: Anemia of CKD, End Stage Renal Disease Problem List: (1) Dependent on hemodialysis Plan: continue TTS dialysis, no acute renal concerns avoid IVF and gadolinium has functioning AVF for dialysis high protein diet, HD done yesterday and 3 liters removed. BP is stable. Continue antibiotics, next HD will be on . (2) SOB (shortness of breath) Plan: improved, may have been due to fluid overload UF as tolerated with dialysis (3) Encephalopathy Plan: improved, etiology uncertain continue supportive care (4) Hyperkalemia Plan: improved after hemodialysis, monitor (5) Anemia Plan: Epogen with HD (6) HIV disease Plan: on HAART (7) Atrial flutter Plan: on IV Cardizem may need AV jadon ablation and PPM placement group home anticoagulation to be decided in addition cardiology following he does not want to proceed with pacemaker placement at this time Problem Qualifiers (1) Atrial flutter: Qualified Code: I48.92 - Atrial flutter, unspecified type Ranjit Vargas MD Mar 27, 2017 11:59
[2017-03-27] MEDS: DEXT 5%-NACL 0.9% 1000 ML INJ 1,000 ML IV SCH (21:00)
[2017-03-28] VITALS (17 sets, daily range): BP systolic 119–173; BP diastolic 67–101; PULSE 59–110; RESP 9–18; TEMP 97.8–98.7; O2SAT 88–100
[2017-03-28] MEDS: HEPARIN SODIUM - SQ 10,000 UNITS/ML VIAL SQ SCH ×2 (00:27→12:37)
[2017-03-28] MEDS: HYDROmorphone HCL PF 1 MG/ML VIAL IV PRN ×4 (00:27→21:35)
[2017-03-28] MEDS: PIPERACIL-TAZO 2.25 GM PREMIX 50 ML IV SCH ×2 (00:27→09:24)
[2017-03-28] MEDS: INSULIN ASPART SUPPLEMENTAL SCALE SQ SCH ×4 (05:51→20:14)
[2017-03-28] MEDS: ASPIRIN EC 81 MG TABEC PO SCH (09:25)
[2017-03-28] MEDS: FOLIC ACID 1 MG TAB PO SCH (09:25)
[2017-03-28] MEDS: DOCUSATE SODIUM 50 MG/SENNA 8.6 MG TAB PO SCH ×2 (09:25→20:17)
[2017-03-28] MEDS: SEVELAMER CARBONATE 800 MG TAB PO SCH ×3 (09:25→17:44)
[2017-03-28] MEDS: valACYclovir HCL 500 MG TAB PO SCH (09:25)
[2017-03-28] MEDS: CARVEDILOL 12.5 MG TAB PO SCH ×2 (09:25→20:16)
[2017-03-28] MEDS: PANTOPRAZOLE SOD 40 MG DELAYED RELEASE TAB PO SCH (09:25)
[2017-03-28] MEDS: DILTIAZEM-CD 180 MG CAP ER PO SCH (09:25)
[2017-03-28] MEDS: SODIUM CHLORIDE 0.9% FLUSH 10 ML FLUSH IV FLUSH SCH ×2 (09:25→20:17)
[2017-03-28] MEDS: RIFAXIMIN 550 MG TAB PO SCH ×2 (09:26→20:17)
--- NOTE | 2017-03-28 09:50 | HHI.NPPN ---
Subjective General Problems: Anemia Renal Failure: Chronic, End Stage Renal Disease Interval History Sitting up in bed eating lunch. Heart rate has been controlled. No acute concerns. (Moni Yung) Review of Systems General Constitutional: Fatigue (Moni Yung) Respiratory Lungs: Wheeze (Moni Yung) Cardiovascular Cardiac: COONEY (Moni Yung) Objective Data Data 03/27/17 03/28/17 19:00 07:00 Intake Total 464 ml 651 ml Output Total 0 ml 0 ml Balance 464 ml 651 ml Intake Oral 400 ml 360 ml IV Total 64 ml 291 ml Output Urine Total 0 ml 0 ml # Bowel Movements 0 0 Vital Signs Date Time Temp Pulse Resp B/P Pulse Ox O2 Delivery O2 Flow Rate FiO2 03/28/17 08:33 100 21 03/28/17 08:00 97.9 80 12 143/83 99 03/28/17 06:00 70 03/28/17 04:00 72 03/28/17 04:00 97.8 72 18 129/78 100 03/28/17 02:00 64 03/28/17 00:00 70 03/28/17 00:00 98.6 70 10 173/86 100 03/27/17 22:00 76 03/27/17 20:27 96 21 03/27/17 20:00 99.1 83 14 145/76 99 03/27/17 20:00 83 03/27/17 18:00 62 03/27/17 17:00 62 12 123/73 100 03/27/17 16:00 62 03/27/17 16:00 98.2 62 12 120/76 100 03/27/17 15:00 62 12 122/74 100 03/27/17 14:00 65 14 120/65 100 03/27/17 14:00 65 03/27/17 13:00 64 13 112/67 100 03/27/17 12:00 85 03/27/17 12:00 98.4 85 15 112/56 100 03/27/17 11:00 70 14 133/66 99 03/27/17 10:00 116 03/27/17 10:00 116 14 129/89 99 (Moni Yung) -: 03/27/17 0603 03/27/17 0603 Physical Exam General Appearance: Well Developed, No Acute Distress, Comfortable, Malnourished ( Moni Yung) Eyes Eye Exam: Pupils Equal (Moni Yung) Ears & Nose Ears & Nose Exam: Nasal Mucosa [place] (Moni Yung) Throat Throat Exam: Oral Mucosa [place] & Moist (Moni Yung) Neck Neck Exam: Neck Supple (Moni Yung) Pulmonary Resp Exam: Clear Bilaterally, Breath Sounds Equal, Decreased Bases, Diminished Breath Sounds (Moni Yung) Cardiology CV Exam: Regular, Normal Sinus Rhythm, Good Perfusion (Moni Yung) Gastrointestinal/Abdomen GI Exam: Soft, Non-Tender, Bowel Sounds Present (Moni Yung) Musculoskeletal MS Exam: Joints Intact, Normal Gait, Normal Tone (Moni Yung) Integumentary Skin Exam: Clear, Warm, Dry, Intact (Moni Yung) Extremeties Extremities Exam: No Edema, Pedal Pulses Palpable (Moni Yung) Neurologic Neuro Exam: Alert, Awake, Speech Clear, Moving All Extremities, No Focal Deficits Neuro Remarks awake, oriented (Moni Yung) Psychiatric Psych Exam: Appropriate Responses (Moni Yung) Assessment/Plan Discussed Condition With: Patient Assessment Summary: Anemia of CKD, End Stage Renal Disease Problem List: (1) Dependent on hemodialysis Plan: continue TTS dialysis, he is due tomorrow no acute renal concerns avoid gadolinium, stop IVF that is infusing has functioning AVF for dialysis high protein diet intermittent metabolic panel (2) SOB (shortness of breath) Plan: improved UF as tolerated with dialysis (3) Encephalopathy Plan: improved, etiology uncertain continue supportive care (4) Hyperkalemia Plan: improved after hemodialysis, monitor (5) Atrial flutter Plan: he has tachy luis syndrome off IV Cardizem, now on PO Cardizem and metoprolol may need AV jadon ablation and PPM placement, although he is refusing nursing home anticoagulation to be decided in addition cardiology following (6) Anemia Plan: Epogen with HD (7) HIV disease Plan: on HAART (Moni Yung) Plan patient was seen and examined. Agree with above assessment and plan. (Tyson Arboleda MD) Problem Qualifiers (1) Atrial flutter: Qualified Code: I48.92 - Atrial flutter, unspecified type Moni Yung Mar 28, 2017 09:50 Tyson Arboleda MD Mar 29, 2017 14:43
--- NOTE | 2017-03-28 11:58 | HHI.PR ---
Subjective Subjective Remarks sitting up in chair lethargic, states he feels sleepy today no cp no sob suctioning oral secretions no fever Review of Systems Constitutional Constitutional Remarks 12 point ROS completed, unreliable Vitals/Results Intake & Output 03/27/17 03/27/17 03/28/17 15:00 23:00 07:00 Intake Total 464 ml 401 ml 250 ml Output Total 0 ml 0 ml 0 ml Balance 464 ml 401 ml 250 ml Intake Oral 400 ml 360 ml 0 ml IV Total 64 ml 41 ml 250 ml Output Urine Total 0 ml 0 ml 0 ml # Bowel Movements 0 0 0 Vital Signs Vital Signs Date Time Temp Pulse Resp B/P Pulse Ox O2 Delivery O2 Flow Rate FiO2 03/28/17 08:33 100 21 03/28/17 08:00 97.9 80 12 143/83 99 03/28/17 06:00 70 03/28/17 04:00 72 03/28/17 04:00 97.8 72 18 129/78 100 03/28/17 02:00 64 03/28/17 00:00 70 03/28/17 00:00 98.6 70 10 173/86 100 03/27/17 22:00 76 03/27/17 20:27 96 21 03/27/17 20:00 99.1 83 14 145/76 99 03/27/17 20:00 83 03/27/17 18:00 62 03/27/17 17:00 62 12 123/73 100 03/27/17 16:00 62 03/27/17 16:00 98.2 62 12 120/76 100 03/27/17 15:00 62 12 122/74 100 03/27/17 14:00 65 14 120/65 100 03/27/17 14:00 65 03/27/17 13:00 64 13 112/67 100 03/27/17 12:00 85 03/27/17 12:00 98.4 85 15 112/56 100 CBC/BMP: 03/27/17 0603 03/27/17 0603 Lab Results Laboratory Tests Test 03/28/17 10:10 Phosphorus Level 8.9 MG/DL Physical Exam General General Appearance: Well Developed, No Acute Distress, Comfortable, Malnourished Eyes Eye Exam: Pupils Equal Ears & Nose Ears & Nose Exam: Nasal Mucosa [place] Throat Throat Exam: Oral Mucosa [place] & Moist Neck Neck Exam: Neck Supple Pulmonary Resp Exam: Crackles, Decreased Bases, Diminished Breath Sounds Resp Remarks faint rales bibasilar Cardiology CV Exam: Regular, Normal Sinus Rhythm, Good Perfusion Gastrointestinal/Abdomen GI Exam: Soft, Non-Tender, Bowel Sounds Present Musculoskeletal MS Exam: Joints Intact, Normal Gait, Normal Tone Integumentary Skin Exam: Clear, Warm, Dry, Intact Extremeties Extremities Exam: No Edema, Pedal Pulses Palpable Extremeties Remarks AVF right arm + B/T Neurologic Neuro Exam: Awake, Speech Clear, Moving All Extremities, No Focal Deficits Psychiatric Psych Exam: Appropriate Responses VTE Prophylaxis VTE Prophylaxis Meds: Heparin Assessment/Plan Problem List: (1) Altered mental status (2) Tachy-luis syndrome (3) A-fib (4) ESRD (end stage renal disease) (5) Acute diastolic CHF (congestive heart failure) (6) Non-compliance (7) HTN (hypertension) (8) DM (diabetes mellitus) (9) Cardiomyopathy (10) HIV disease (11) COPD (chronic obstructive pulmonary disease) Assessment/Plan 66-year-old male with history of HIV, end-stage renal disease on dialysis, atrial fibrillation on aspirin, 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 Patient presented to emergency room with altered mental status, cough. Found in pulmonary edema. Still requiring intensive care monitoring Pulm edema, fluid overload. Acute CHF. Had Echo recently January 2017, EF 55 to 60% -Nephrology following -s/p HD treatment 03/22, and 03/24 -Weaned off BIPAP, on NC -Duonebs -stable, no resp. distress Lactic Acidosis, . Possible sepsis -cultures, negative, dc abx today -acidosis resolved Metabolic encephalopathy poss secondary to pulmonary edema, sepsis; now resolved -monitor neuro status. -improved End-stage renal disease, with hyperkalemia Hemodialysis, appreciate renal consult and plan a care Aflutter with RVR, poss. tachy luis syndrome -continue PO Cardizem 360 mg po daily -Cardizem drip off for now -continue Coreg 25 mg po BID -continue ASA -appreciate Dr Mays's input, -Dr Palacios consulted, awaiting input -may need PPM, pt. refusing any procedures, has been discussed extensively. -HR stable, 90s Hypertension, stable -Medical management HIV Continue home medication Diabetes, diet control, blood glucose stable Accu-Cheks before meals and at bedtime with insulin therap Heparin/SCDs for DVT prophylaxisis Labs reviewed inc. activity, OOB transfer to [facility] will wait for card input CM consult DC planning, pt. refusing SNF, order C D/W RN D/W Dr. Petersen D/W pt This patient was seen by myself and Dr. Petersen, this note is written on her behalf Problem Qualifiers (1) Altered mental status: Qualified Code: R41.82 - Altered mental status, unspecified altered mental status type (2) A-fib: Qualified Code: I48.91 - Atrial fibrillation, unspecified type (3) HTN (hypertension): Qualified Code: I10 - Essential hypertension (4) DM (diabetes mellitus): (5) Cardiomyopathy: Qualified Code: I42.9 - Cardiomyopathy, unspecified type (6) COPD (chronic obstructive pulmonary disease): Qualified Code: J44.9 - Chronic obstructive pulmonary disease, unspecified COPD type Shanthi Alarcon Mar 28, 2017 11:58
--- NOTE | 2017-03-28 12:00 | HHI.FF ---
Face to Face Verification Diagnosis: (1) Pulmonary edema (2) Altered mental status (3) Cardiomyopathy (4) HTN (hypertension) (5) DM (diabetes mellitus) Physical Therapy Order: Evaluate and Treat Home Health Nursing Order: Medical education Signs/symptoms of disease process Nursing assessment with vital signs I have seen patient Brennan Barroso on 03/28/17. My clinical findings support the need for the requested home health care services because: Patient has SOB Deconditioned w/ increased weakness Limited ability to care for self Need for psychosocial assistance I certify that my clinical findings support that this patient is homebound because: Impaired cognitive ability/safety Unsafe to leave home unassisted Need for psychosocial assistance Poor cardiac reserve Shanthi Alarcon [facility] Mar 28, 2017 12:00
--- NOTE | 2017-03-28 13:28 | PD.CARD.PN ---
Subjective Subjective Remarks sitting in chair eating lunch in nad Objective Vital Signs / I&O Vital Signs Date Time Temp Pulse Resp B/P Pulse Ox O2 Delivery O2 Flow Rate FiO2 03/28/17 08:33 100 21 03/28/17 08:00 97.9 80 12 143/83 99 03/28/17 06:00 70 03/28/17 04:00 72 03/28/17 04:00 97.8 72 18 129/78 100 03/28/17 02:00 64 03/28/17 00:00 70 03/28/17 00:00 98.6 70 10 173/86 100 03/27/17 22:00 76 03/27/17 20:27 96 21 03/27/17 20:00 99.1 83 14 145/76 99 03/27/17 20:00 83 03/27/17 18:00 62 03/27/17 17:00 62 12 123/73 100 03/27/17 16:00 62 03/27/17 16:00 98.2 62 12 120/76 100 03/27/17 15:00 62 12 122/74 100 03/27/17 14:00 65 14 120/65 100 03/27/17 14:00 65 I/O 03/27/17 03/27/17 03/27/17 03/28/17 03/28/17 03/28/17 07:00 15:00 23:00 07:00 15:00 23:00 Intake Total 338 ml 464 ml 401 ml 250 ml Output Total 0 ml 0 ml 0 ml 0 ml Balance 338 ml 464 ml 401 ml 250 ml Intake Oral 240 ml 400 ml 360 ml 0 ml IV Total 98 ml 64 ml 41 ml 250 ml Output Urine Total 0 ml 0 ml 0 ml 0 ml # Bowel Movements 0 0 0 0 Physical Exam GENERAL: SKIN: Warm and dry. HEAD: Normocephalic. EYES: No scleral icterus. No injection or drainage. NECK: Supple, trachea midline. No JVD or lymphadenopathy. CARDIOVASCULAR: Regular rate and rhythm without murmurs, gallops, or rubs. RESPIRATORY: Breath sounds equal bilaterally. No accessory muscle use. GASTROINTESTINAL: Abdomen soft, non-tender, nondistended. MUSCULOSKELETAL: No cyanosis, or edema. BACK: Nontender without obvious deformity. No CVA tenderness. Laboratory Laboratory Tests Test 03/28/17 10:10 Phosphorus Level 8.9 MG/DL Assessment and Plan Problem List: (1) ESRD (end stage renal disease) (2) A-fib (3) HIV disease (4) CAD (coronary artery disease) (5) Cardiomyopathy (6) DM (diabetes mellitus) (7) Non-compliance (8) Bradycardia (9) Tachy-luis syndrome Assessment and Plan 1.) Atrial fib - hr ranging between 60 and 130 in aflutter with addition of coreg, tachy luis syndrome, f/u rec Dr Palacios, ac held due to av fistula hemorrhages requiring transfusion and medical and follow up noncompliance, continue prn cardizem drip to keep hr<130 Problem Qualifiers (1) A-fib: Qualified Code: I48.91 - Atrial fibrillation, unspecified type (2) CAD (coronary artery disease): Qualified Code: I25.118 - Coronary artery disease involving [place] coronary artery of [place] heart with other form of angina pectoris (3) Cardiomyopathy: Qualified Code: I42.9 - Cardiomyopathy, unspecified type (4) DM (diabetes mellitus): Onesimo Mays MD Mar 28, 2017 13:28
[2017-03-29] VITALS (13 sets, daily range): BP systolic 114–170; BP diastolic 76–95; PULSE 86–127; RESP 16–20; TEMP 97.2–98.8; O2SAT 94–99
[2017-03-29] MEDS: HEPARIN SODIUM - SQ 10,000 UNITS/ML VIAL SQ SCH ×2 (00:51→13:15)
[2017-03-29] MEDS: ACETAMINOPHEN/CODEINE 300 MG/30 MG TAB PO PRN ×4 (02:57→22:29)
[2017-03-29] MEDS: INSULIN ASPART SUPPLEMENTAL SCALE SQ SCH ×4 (06:46→20:11)
--- NOTE | 2017-03-29 08:48 | HHI.DCPOC ---
Discharge Care Plan Diagnosis: (1) Tachy-luis syndrome (2) ESRD (end stage renal disease) (3) Acute diastolic CHF (congestive heart failure) (4) A-fib (5) HTN (hypertension) (6) Altered mental status Your Health Problems Are: Cough Shortness of Breath Goals to Promote Your Health * To prevent worsening of your condition and complications * To maintain your health at the optimal level Directions to Meet Your Goals Take your medications as prescribed Follow your dietary instruction Follow activity as directed Keep your appointments as scheduled Take your immunizations and boosters as scheduled If your symptoms worsen call your PCP, if no PCP go to Urgent Care Center or Emergency Room Smoking is Dangerous to Your Health. Avoid second hand smoke Call the 24-hour hour crisis hotline for domestic abuse at Shanthi Alarcon [place] Mar 29, 2017 08:48
--- NOTE | 2017-03-29 08:51 | HHI.PR ---
Subjective Subjective Remarks sitting up no cp no sob afib, well controlled HR 80s doesn't want any procedures, pacemaker doesn't want SNF, lives with sister and plans to go back to her house Review of Systems Constitutional Constitutional Remarks 12 point ROS completed, unreliable Vitals/Results Intake & Output 03/28/17 03/28/17 03/29/17 15:00 23:00 07:00 Intake Total 525 ml 360 ml 120 ml Output Total 0 ml 0 ml 0 ml Balance 525 ml 360 ml 120 ml Intake Oral 400 ml 360 ml 120 ml IV Total 125 ml 0 ml Output Urine Total 0 ml 0 ml 0 ml # Bowel Movements 1 0 Vital Signs Vital Signs Date Time Temp Pulse Resp B/P Pulse Ox O2 Delivery O2 Flow Rate FiO2 03/29/17 08:42 98 21 03/29/17 04:22 97.8 88 16 116/77 98 03/29/17 03:07 89 03/29/17 02:14 98.0 86 16 137/84 99 03/29/17 00:00 98.4 107 17 155/92 98 03/29/17 00:00 107 03/28/17 23:02 98 21 03/28/17 22:05 16 03/28/17 22:00 110 03/28/17 20:00 98.7 63 16 138/69 100 03/28/17 20:00 63 03/28/17 16:00 98.7 59 10 139/67 88 03/28/17 15:00 59 10 119/70 99 03/28/17 14:00 60 9 140/68 100 03/28/17 13:00 68 18 124/68 100 03/28/17 12:00 97.9 98 9 138/101 99 03/28/17 11:00 80 11 141/76 98 03/28/17 10:00 69 10 168/90 100 03/28/17 09:00 77 13 161/78 99 CBC/BMP: 03/27/17 0603 03/27/17 0603 Lab Results Laboratory Tests Test 03/28/17 03/29/17 10:10 05:39 Phosphorus Level 8.9 MG/DL Ammonia 19 MCMOL/L Physical Exam General General Appearance: Well Developed, No Acute Distress, Comfortable, Malnourished Eyes Eye Exam: Pupils Equal Ears & Nose Ears & Nose Exam: Nasal Mucosa [place] Throat Throat Exam: Oral Mucosa [place] & Moist Neck Neck Exam: Neck Supple Pulmonary Resp Exam: Crackles, Decreased Bases, Diminished Breath Sounds Resp Remarks faint rales bibasilar Cardiology CV Exam: Regular, Normal Sinus Rhythm, Good Perfusion Gastrointestinal/Abdomen GI Exam: Soft, Non-Tender, Bowel Sounds Present Musculoskeletal MS Exam: Joints Intact, Normal Gait, Normal Tone Integumentary Skin Exam: Clear, Warm, Dry, Intact Extremeties Extremities Exam: No Edema, Pedal Pulses Palpable Extremeties Remarks AVF right arm + B/T Neurologic Neuro Exam: Awake, Speech Clear, Moving All Extremities, No Focal Deficits Psychiatric Psych Exam: Appropriate Responses VTE Prophylaxis VTE Prophylaxis Meds: Heparin Assessment/Plan Problem List: (1) Altered mental status (2) Tachy-luis syndrome (3) A-fib (4) ESRD (end stage renal disease) (5) Acute diastolic CHF (congestive heart failure) (6) Non-compliance (7) HTN (hypertension) (8) DM (diabetes mellitus) (9) Cardiomyopathy (10) HIV disease (11) COPD (chronic obstructive pulmonary disease) Assessment/Plan 66-year-old male with history of HIV, end-stage renal disease on dialysis, atrial fibrillation on aspirin, 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 Patient presented to emergency room with altered mental status, cough. Found in pulmonary edema. Still requiring intensive care monitoring Pulm edema, fluid overload. Acute CHF. Had Echo recently January 2017, EF 55 to 60% -Nephrology following -s/p HD treatment 03/22, and 03/24 -Weaned off BIPAP, on NC -Duonebs -stable, no resp. distress Lactic Acidosis, . Possible sepsis -cultures, negative, dc abx today -acidosis resolved Metabolic encephalopathy poss secondary to pulmonary edema, sepsis; now resolved -monitor neuro status. -improved End-stage renal disease, with hyperkalemia Hemodialysis, appreciate renal consult and plan a care Aflutter with RVR, poss. tachy luis syndrome -continue PO Cardizem 360 mg po daily -Cardizem drip off for now -continue Coreg 25 mg po BID -continue ASA -appreciate Dr Mays's input, -Dr Palacios consulted, saw pt. last night, pt. doesn't know what was discussed. Note pending -may need PPM, pt. refusing any procedures, has been discussed extensively. -HR stable, 90s Hypertension, stable -Medical management HIV Continue home medication Diabetes, diet control, blood glucose stable Accu-Cheks before meals and at bedtime with insulin therap Heparin/SCDs for DVT prophylaxisis CM consult DC planning, pt. refusing SNF, set up C pt. refusing procedures, stable Discharged home today with C pt. with poor prognosis, multiple comorbidities, likely to return to hospital F/U PCP, nephro, cardiology Diet-heart healthy Activity-as tolerated D/W RN D/W Dr. Petersen D/W pt D/W CM This patient was seen by myself and Dr. Petersen, this note is written on her behalf Discharge Minutes: 45 Problem Qualifiers (1) Altered mental status: Qualified Code: R41.82 - Altered mental status, unspecified altered mental status type (2) A-fib: Qualified Code: I48.91 - Atrial fibrillation, unspecified type (3) HTN (hypertension): Qualified Code: I10 - Essential hypertension (4) DM (diabetes mellitus): (5) Cardiomyopathy: Qualified Code: I42.9 - Cardiomyopathy, unspecified type (6) COPD (chronic obstructive pulmonary disease): Qualified Code: J44.9 - Chronic obstructive pulmonary disease, unspecified COPD type Shanthi Alarcon Mar 29, 2017 08:51
[2017-03-29] MEDS: SODIUM CHLORIDE 0.9% FLUSH 10 ML FLUSH IV FLUSH SCH ×2 (09:00→20:12)
[2017-03-29] MEDS: valACYclovir HCL 500 MG TAB PO SCH (09:00)
--- NOTE | 2017-03-29 09:47 | HHI.NPPN ---
Subjective General Problems: Anemia Renal Failure: Chronic, End Stage Renal Disease Interval History Seen during dialysis. He is wanting to be discharged. No acute issues. ( Moni Yung) Review of Systems General Constitutional: Fatigue (Moni Yung) Respiratory Lungs: Wheeze (Moni Yung) Cardiovascular Cardiac: COONEY (Moni Yung) Objective Data Data 03/28/17 03/29/17 19:00 07:00 Intake Total 525 ml 480 ml Output Total 0 ml 0 ml Balance 525 ml 480 ml Intake Oral 400 ml 480 ml IV Total 125 ml 0 ml Output Urine Total 0 ml 0 ml # Bowel Movements 1 0 Vital Signs Date Time Temp Pulse Resp B/P Pulse Ox O2 Delivery O2 Flow Rate FiO2 03/29/17 08:42 98 21 03/29/17 08:00 97.2 104 20 170/84 94 03/29/17 04:22 97.8 88 16 116/77 98 03/29/17 03:07 89 03/29/17 02:14 98.0 86 16 137/84 99 03/29/17 00:00 98.4 107 17 155/92 98 03/29/17 00:00 107 03/28/17 23:02 98 21 03/28/17 22:05 16 03/28/17 22:00 110 03/28/17 20:00 98.7 63 16 138/69 100 03/28/17 20:00 63 03/28/17 16:00 98.7 59 10 139/67 88 03/28/17 15:00 59 10 119/70 99 03/28/17 14:00 60 9 140/68 100 03/28/17 13:00 68 18 124/68 100 03/28/17 12:00 97.9 98 9 138/101 99 03/28/17 11:00 80 11 141/76 98 03/28/17 10:00 69 10 168/90 100 (Moni Yung) -: 03/27/17 0603 03/27/17 0603 Physical Exam General Appearance: Well Developed, No Acute Distress, Comfortable, Malnourished ( Moni Yung) Eyes Eye Exam: Pupils Equal (Moni Yung) Ears & Nose Ears & Nose Exam: Nasal Mucosa [place] (Moni Yung) Throat Throat Exam: Oral Mucosa [place] & Moist (Moni Yung) Neck Neck Exam: Neck Supple (Moni Yung) Pulmonary Resp Exam: Crackles, Decreased Bases, Diminished Breath Sounds (Moni Yung) Cardiology CV Exam: Regular, Normal Sinus Rhythm, Good Perfusion (Moni Yung) Gastrointestinal/Abdomen GI Exam: Soft, Non-Tender, Bowel Sounds Present (Moni Yung) Musculoskeletal MS Exam: Joints Intact, Normal Gait, Normal Tone (Moni Yung) Integumentary Skin Exam: Clear, Warm, Dry, Intact (Moni Yung) Extremeties Extremities Exam: No Edema, Pedal Pulses Palpable (Moni Yung) Neurologic Neuro Exam: Awake, Speech Clear, Moving All Extremities, No Focal Deficits Neuro Remarks awake, oriented (Moni Yung) Psychiatric Psych Exam: Appropriate Responses (Moni Yung) Assessment/Plan Discussed Condition With: Patient Assessment Summary: Anemia of CKD, End Stage Renal Disease Problem List: (1) Dependent on hemodialysis Plan: seen during dialysis on a 3K, 350 BFR, goal 3L continue TTS dialysis,can resume outpatient HD if discharged no acute renal concerns avoid gadolinium has functioning AVF for dialysis high protein diet intermittent metabolic panel increase renvela dosage for metabolic bone disorder (2) SOB (shortness of breath) Plan: improved UF as tolerated with dialysis (3) Encephalopathy Plan: improved, etiology uncertain continue supportive care (4) Hyperkalemia Plan: improved after hemodialysis, monitor (5) Atrial flutter Plan: he has tachy luis syndrome, but rate has been controlled on PO Cardizem and metoprolol may need AV jadon ablation and PPM placement, although he is refusing fci anticoagulation to be decided in addition cardiology following (6) Anemia Plan: Epogen with HD (7) HIV disease Plan: on HAART (Moni Yung) Problem List: (1) Dependent on hemodialysis Plan: seen during dialysis on a 3K, 350 BFR, goal 3L continue TTS dialysis,can resume outpatient HD if discharged no acute renal concerns avoid gadolinium has functioning AVF for dialysis high protein diet intermittent metabolic panel increase renvela dosage for metabolic bone disorder (2) SOB (shortness of breath) Plan: improved UF as tolerated with dialysis (3) Encephalopathy Plan: improved, etiology uncertain continue supportive care (4) Hyperkalemia Plan: improved after hemodialysis, monitor (5) Atrial flutter Plan: he has tachy luis syndrome, but rate has been controlled on PO Cardizem and metoprolol may need AV jadon ablation and PPM placement, although he is refusing fci anticoagulation to be decided in addition cardiology following (6) Anemia Plan: Epogen with HD (7) HIV disease Plan: on HAART Plan patient was seen and examined. Seen during dialysis. Patient refused pacemaker placement. (Tyson Arboleda MD) Problem Qualifiers (1) Atrial flutter: Qualified Code: I48.92 - Atrial flutter, unspecified type oMni Yung Mar 29, 2017 09:47 Tyson Arboleda MD Mar 29, 2017 15:06
[2017-03-29] MEDS: GELATIN 12 MM/7 MM FOAM TOP PRN (09:52)
[2017-03-29] MEDS: EPOETIN ALFA 10,000 UNITS/ML VIAL IV PRN (09:53)
[2017-03-29] MEDS: SEVELAMER CARBONATE 800 MG TAB PO SCH ×2 (13:13→17:02)
[2017-03-29] MEDS: PANTOPRAZOLE SOD 40 MG DELAYED RELEASE TAB PO SCH (13:14)
[2017-03-29] MEDS: RIFAXIMIN 550 MG TAB PO SCH ×2 (13:14→20:11)
[2017-03-29] MEDS: DILTIAZEM-CD 180 MG CAP ER PO SCH (13:14)
[2017-03-29] MEDS: FOLIC ACID 1 MG TAB PO SCH (13:14)
[2017-03-29] MEDS: CARVEDILOL 12.5 MG TAB PO SCH ×2 (13:14→20:10)
[2017-03-29] MEDS: DOCUSATE SODIUM 50 MG/SENNA 8.6 MG TAB PO SCH ×2 (13:15→20:11)
[2017-03-29] MEDS: ASPIRIN EC 81 MG TABEC PO SCH (13:15)
--- NOTE | 2017-03-29 13:45 | PD.CARD.PN ---
Subjective Subjective Remarks alert in nad Objective Vital Signs / I&O Vital Signs Date Time Temp Pulse Resp B/P Pulse Ox O2 Delivery O2 Flow Rate FiO2 03/29/17 08:42 98 21 03/29/17 08:00 97.2 104 20 170/84 94 03/29/17 04:22 97.8 88 16 116/77 98 03/29/17 03:07 89 03/29/17 02:14 98.0 86 16 137/84 99 03/29/17 00:00 98.4 107 17 155/92 98 03/29/17 00:00 107 03/28/17 23:02 98 21 03/28/17 22:05 16 03/28/17 22:00 110 03/28/17 20:00 98.7 63 16 138/69 100 03/28/17 20:00 63 03/28/17 16:00 98.7 59 10 139/67 88 03/28/17 15:00 59 10 119/70 99 03/28/17 14:00 60 9 140/68 100 I/O 03/28/17 03/28/17 03/28/17 03/29/17 03/29/17 03/29/17 07:00 15:00 23:00 07:00 15:00 23:00 Intake Total 250 ml 525 ml 360 ml 120 ml Output Total 0 ml 0 ml 0 ml 0 ml 2100 ml Balance 250 ml 525 ml 360 ml 120 ml -2100 ml Intake Oral 0 ml 400 ml 360 ml 120 ml IV Total 250 ml 125 ml 0 ml Output Urine Total 0 ml 0 ml 0 ml 0 ml Hemodialysis 2100 ml # Bowel Movements 0 1 0 Physical Exam GENERAL: SKIN: Warm and dry. HEAD: Normocephalic. EYES: No scleral icterus. No injection or drainage. NECK: Supple, trachea midline. No JVD or lymphadenopathy. CARDIOVASCULAR: Regular rate and rhythm without murmurs, gallops, or rubs. RESPIRATORY: Breath sounds equal bilaterally. No accessory muscle use. GASTROINTESTINAL: Abdomen soft, non-tender, nondistended. MUSCULOSKELETAL: No cyanosis, or edema. BACK: Nontender without obvious deformity. No CVA tenderness. Laboratory Laboratory Tests Test 03/29/17 05:39 Ammonia 19 MCMOL/L Assessment and Plan Problem List: (1) ESRD (end stage renal disease) (2) A-fib (3) HIV disease (4) CAD (coronary artery disease) (5) Cardiomyopathy (6) DM (diabetes mellitus) (7) Non-compliance (8) Bradycardia (9) Tachy-luis syndrome Assessment and Plan 1.) Atrial fib - hr ranging between 60 and 130 in aflutter with addition of coreg, tachy luis syndrome, f/u rec Dr Palacios, ac held due to av fistula hemorrhages requiring transfusion and medical and follow up noncompliance, continue prn cardizem drip to keep hr<130 Problem Qualifiers (1) A-fib: Qualified Code: I48.91 - Atrial fibrillation, unspecified type (2) CAD (coronary artery disease): Qualified Code: I25.118 - Coronary artery disease involving [place] coronary artery of [place] heart with other form of angina pectoris (3) Cardiomyopathy: Qualified Code: I42.9 - Cardiomyopathy, unspecified type (4) DM (diabetes mellitus): Onesimo Mays MD Mar 29, 2017 13:45
[2017-03-29] MEDS ORDERED: ACET-534 PO (14:16)
--- NOTE | 2017-03-29 19:57 | HHI.PR ---
Subjective Remarks Doing ok Objective Vital Signs Date Time Temp Pulse Resp B/P Pulse Ox O2 Delivery O2 Flow Rate FiO2 03/29/17 17:46 96 21 03/29/17 16:00 98.2 127 20 161/95 96 03/29/17 08:42 98 21 03/29/17 08:10 94 03/29/17 08:00 97.2 104 20 170/84 94 03/29/17 04:22 97.8 88 16 116/77 98 03/29/17 03:07 89 03/29/17 02:14 98.0 86 16 137/84 99 03/29/17 00:00 98.4 107 17 155/92 98 03/29/17 00:00 107 03/28/17 23:02 98 21 03/28/17 22:05 16 03/28/17 22:00 110 03/28/17 20:00 98.7 63 16 138/69 100 03/28/17 20:00 63 I/O 03/28/17 03/28/17 03/28/17 03/29/17 03/29/17 03/29/17 07:00 15:00 23:00 07:00 15:00 23:00 Intake Total 250 ml 525 ml 360 ml 120 ml 240 ml Output Total 0 ml 0 ml 0 ml 0 ml 2200 ml Balance 250 ml 525 ml 360 ml 120 ml -1960 ml Intake Oral 0 ml 400 ml 360 ml 120 ml 240 ml IV Total 250 ml 125 ml 0 ml Output Urine Total 0 ml 0 ml 0 ml 0 ml 100 ml Hemodialysis 2100 ml # Bowel Movements 0 1 0 1 Result Diagram: 03/27/17 0603 03/27/17 0603 Imaging Alert, apparently oriented Lungs: ventilated Heart: S1, S2 regular Abdomen: obese, no mass Ext: no edema Last Impressions Chest X-Ray 03/22/17 0808 Signed Impressions: Service Date/Time: Wednesday, March 22, 2017 08:12 - CONCLUSION: 1. Advanced cardiomegaly and probable interstitial edema. Oscar Beaulieu MD Head CT 03/22/17 0000 Signed Impressions: Service Date/Time: Wednesday, March 22, 2017 21:15 - CONCLUSION: Nonspecific white matter changes. No acute disease. Jorge Christiansen MD Abdomen/Pelvis CT 03/22/17 0000 Signed Impressions: Service Date/Time: Wednesday, March 22, 2017 21:19 - CONCLUSION: 1. No evidence for pancreatitis. 2. Atrophic bilateral kidneys with bilateral renal cysts. 3. Right pleural effusion. 4. Questionable wall thickening of the ascending and transverse colon. Jorge Christiansen MD Current Medications Medications (Trade) Dose Ordered Sig/Michael Route Start Time Stop Time Status Last Admin (NS Flush) 2 ml UNSCH PRN IV FLUSH 03/22/17 11:45 03/27/17 09:03 (NS Flush) 2 ml BID IV FLUSH 03/22/17 21:00 03/29/17 09:00 (Zofran Inj) 4 mg Q6H PRN IVP 03/22/17 11:45 (Heparin Inj) 5,000 units Q12H SQ 03/22/17 13:00 03/29/17 13:15 (Narcan Inj) 0.4 mg UNSCH PRN IV 03/22/17 11:45 (Munira-Colace) 1 tab BID PO 03/22/17 21:00 03/29/17 13:15 (Milk Of Magnesia Liq) 30 ml Q12H PRN PO 03/22/17 11:45 (Senokot) 17.2 mg Q12H PRN PO 03/22/17 11:45 (Dulcolax Supp) 10 mg DAILY PRN RECTAL 03/22/17 11:45 Lactulose 30 ml 30 ml DAILY PRN PO 03/22/17 11:45 (NS 1000 ml Inj) 1,000 ml @ 0 mls/hr Q0M PRN IV 03/22/17 15:04 Heparin Sodium (Porcine) 8000 units 8,000 units UNSCH PRN IVF 03/22/17 15:15 03/26/17 14:57 Sodium Chloride 1,000 ml @ 200 mls/hr Q5H PRN IV 03/22/17 15:04 (NS 1000 ml Inj) 1,000 ml @ 0 mls/hr Q0M PRN IV 03/22/17 15:04 (Mannitol Inj) 12.5 gm UNSCH PRN IV 03/22/17 15:15 (Albumin 25% Inj) 25 gm UNSCH PRN IV 03/22/17 15:15 (NS Flush) 5 ml UNSCH PRN IV FLUSH 03/22/17 15:15 03/27/17 09:03 (Heparin Inj) UNSCH PRN .XX 03/22/17 15:15 (Gentamicin (Dialysis) Inj) 20 mg UNSCH PRN IV 03/22/17 15:15 (Zofran Inj) 4 mg UNSCH PRN IV 03/22/17 15:15 (Tylenol) 650 mg UNSCH PRN PO 03/22/17 15:15 (Benadryl) 25 mg UNSCH PRN PO 03/22/17 15:15 (Nitrostat Sl) 0.4 mg UNSCH PRN SL 03/22/17 15:15 (Catapres) 0.1 mg UNSCH PRN PO 03/22/17 15:15 (Gelfoam 12 Mm/7 Mm Top) 1 foam UNSCH PRN TOP 03/22/17 15:15 03/29/17 09:52 (Ecotrin Ec) 81 mg DAILY PO 03/23/17 09:00 03/29/17 13:15 (Coreg) 25 mg Q12HR PO 03/22/17 21:00 03/29/17 13:14 (Cardizem Cd) 360 mg DAILY PO 03/23/17 00:40 03/29/17 13:14 (Tricor) 145 mg HS PO 03/22/17 21:00 Hold (Folate) 1 mg DAILY PO 03/23/17 09:00 03/29/17 13:14 (Protonix) 40 mg DAILY PO 03/23/17 09:00 03/29/17 13:14 (Xifaxan) 550 mg BID PO 03/22/17 21:00 03/29/17 13:14 (Valtrex) 1,000 mg DAILY PO 03/23/17 09:00 03/29/17 09:00 (D50w (Vial) Inj) 50 ml UNSCH PRN IV 03/22/17 18:15 (Glucagon Inj) 1 mg UNSCH PRN OTHER 03/22/17 18:15 Miscellaneous Information Patient in critical care unit? Ass... [id number] .XX 03/22/17 18:45 Patient Own Medication PT OWN MED: GENVOYA... DAILY PO 03/23/17 09:00 Hold (Tylenol) 650 mg Q4H PRN PO 03/23/17 10:00 Epoetin Erick 5000 units 5,000 units UNSCH PRN IV 03/23/17 13:00 03/29/17 09:53 (Cardizem Inj/NS Inj) 125 ml @ 0 mls/hr TITRATE IV 03/23/17 16:15 03/26/17 16:33 (Tylenol-Codeine #3) 1 tab Q4H PRN PO 03/25/17 11:15 03/29/17 17:02 (Ambien) 5 mg HS PRN PO 03/25/17 14:00 (Dilaudid Pf Inj) 0.5 mg Q4H PRN IV 03/26/17 19:15 03/28/17 21:35 (Renvela) 3,200 mg TID PO 03/29/17 13:00 03/29/17 17:02 Assessment and Plan Problem List: (1) New onset atrial flutter Status: Acute Plan: Stable. HR control Continue on medical management. Ablation will be considered if HR cannot be controlled. Case discussed with patient Fausto Palacios MD Mar 29, 2017 19:56
--- NOTE | 2017-03-29 21:52 | MB ---
cc: OONFRE MENSAH M.D. DATE OF CONSULTATION: 03/28/2017 REASON FOR CONSULTATION Atrial flutter, tachyarrhythmia. HISTORY OF PRESENT ILLNESS: Mr. Barroso is a 66 year-old -Chinese gentleman with history of end-stage renal disease, high blood pressure, HIV, CHF, substance abuse, TIA, diabetes mellitus, atrial fibrillation, atrial flutter, was admitted due to fluid overload, and high potassium. Hemodialysis was performed. During hospitalization the patient was in atrial flutter, atrial fibrillation, evaluated by Dr. Mays. I was consulted for further evaluation and management. The chart was reviewed. The patient was evaluated. The patient is a poor historian. Most information obtained from medical record. ALLERGIES None. SOCIAL HISTORY The patient denied currently smoking and drinking. FAMILY HISTORY Noncontributory to his current medical condition. MEDICATIONS The gentleman is on: 1. Cardizem. 2. Aspirin. 3. Coreg 25 mg twice a day. 4. Clonidine. 5. Cardizem CD 360 mg a day. 6. Epogen. 7. Fenofibrate. 8. Folic acid. 9. Heparin 10. Gentamicin during hemodialysis. 11. Rifampin. 12. Renvela. 13. Valtrex. 14. Ambien. REVIEW OF SYSTEMS The patient barely can talk and express how he is feeling. PHYSICAL EXAMINATION Alert gentleman. I don't think he is oriented. VITAL SIGNS: Blood pressure on evaluation 139/67, pulse 59, respiratory rate 18. LUNGS: Ventilated. CARDIOVASCULAR: S1-S2 regular. ABDOMEN: Obese. No masses, no extremities. Minimal edema. Telemetry shows atrial flutter with a controlled rate. LABORATORY DATA Hemoglobin 12.3, white blood cell 4.1, potassium is 7.8, potassium 4.5. INR 1.2. ASSESSMENT AND RECOMMENDATIONS Mr. Barroso is completely disoriented. He cannot make a decision. The gentleman is on hemodialysis. He is not on anticoagulation. He is only on heparin. He cannot make a decision by himself. There is apparently multiple history of TIA. At this point my recommendation is continue with current medical management. Continue on Cardizem, if necessary add beta-mauro. If heart rate cannot be controlled, then I will consider ablation. I will follow him during hospitalization. MD JENNIFER Montenegro /7:55 PM /9:06 PM
[2017-03-30] VITALS (7 sets, daily range): BP systolic 130–157; BP diastolic 74–97; PULSE 63–119; RESP 16–18; TEMP 97.7–98.4; O2SAT 94–100
[2017-03-30] MEDS: HEPARIN SODIUM - SQ 10,000 UNITS/ML VIAL SQ SCH (00:17)
[2017-03-30] MEDS: INSULIN ASPART SUPPLEMENTAL SCALE SQ SCH ×4 (06:03→20:47)
[2017-03-30] MEDS: ACETAMINOPHEN/CODEINE 300 MG/30 MG TAB PO PRN (06:04)
--- NOTE | 2017-03-30 09:37 | HHI.NPPN ---
Subjective General Problems: Anemia Renal Failure: Chronic, End Stage Renal Disease Interval History No new complaints. Still wanting to be discharged. He was evaluated by Dr. Palacios. (Moni Yung) Review of Systems General Constitutional: Fatigue (Moni Yung) Respiratory Lungs: Wheeze (Moni Yung) Cardiovascular Cardiac: COONEY (Moni Yung) Objective Data Data 03/29/17 03/30/17 19:00 07:00 Intake Total 240 ml 120 ml Output Total 2200 ml 0 ml Balance -1960 ml 120 ml Intake Oral 240 ml 120 ml Output Urine Total 100 ml 0 ml Hemodialysis 2100 ml # Bowel Movements 1 0 Vital Signs Date Time Temp Pulse Resp B/P Pulse Ox O2 Delivery O2 Flow Rate FiO2 03/30/17 04:12 97.8 84 16 130/74 95 03/29/17 23:25 98.8 96 16 155/84 96 03/29/17 20:25 98 03/29/17 19:47 98.7 96 16 114/76 98 03/29/17 17:46 96 21 03/29/17 16:00 98.2 127 20 161/95 96 (Moni Yung) -: 03/27/17 0603 03/27/17 0603 Physical Exam General Appearance: Well Developed, No Acute Distress, Comfortable, Malnourished ( Moni Yung) Eyes Eye Exam: Pupils Equal (Moni Yung) Ears & Nose Ears & Nose Exam: Nasal Mucosa [place] (Moni Yung) Throat Throat Exam: Oral Mucosa [place] & Moist (Moni Yung) Neck Neck Exam: Neck Supple (Moni Yung) Pulmonary Resp Exam: Crackles, Decreased Bases, Diminished Breath Sounds (Moni Yung) Cardiology CV Exam: Regular, Normal Sinus Rhythm, Good Perfusion (Moni Yung) Gastrointestinal/Abdomen GI Exam: Soft, Non-Tender, Bowel Sounds Present (Moni Yung) Musculoskeletal MS Exam: Joints Intact, Normal Gait, Normal Tone (Moni Yung) Integumentary Skin Exam: Clear, Warm, Dry, Intact (Moni Yung) Extremeties Extremities Exam: No Edema, Pedal Pulses Palpable (Moni Yung) Neurologic Neuro Exam: Awake, Oriented, Speech Clear, Moving All Extremities, No Focal Deficits Neuro Remarks awake, oriented (Moni Yung) Psychiatric Psych Exam: Appropriate Responses (Moni Yung) Assessment/Plan Discussed Condition With: Patient Assessment Summary: Anemia of CKD, End Stage Renal Disease Problem List: (1) Dependent on hemodialysis Plan: 2100 ml UF yesterdat continue TTS dialysis,can resume outpatient HD if discharged no acute renal concerns avoid gadolinium has functioning AVF for dialysis high protein diet intermittent metabolic panel continue Renvela for metabolic bone disorder, dosage increased 03/29 (2) SOB (shortness of breath) Plan: improved UF as tolerated with dialysis (3) Encephalopathy Plan: improved, etiology uncertain continue supportive care ammonia normal (4) Hyperkalemia Plan: improved after hemodialysis, monitor (5) Atrial flutter Plan: he has tachy luis syndrome on PO Cardizem and metoprolol may need AV jadon ablation and PPM placement, although he is refusing Dr. Palacios is now following he is not on anticoagulation (6) Anemia Plan: Epogen with HD (7) HIV disease Plan: on HAART (Moni Yung) Plan patient was seen and examined. Agree with above assessment and plan. (Tyson Arboleda MD) Problem Qualifiers (1) Atrial flutter: Qualified Code: I48.92 - Atrial flutter, unspecified type Moni Yung Mar 30, 2017 09:37 Tyson Arboleda MD Mar 30, 2017 10:10
[2017-03-30] MEDS: ASPIRIN EC 81 MG TABEC PO SCH (10:04)
[2017-03-30] MEDS: RIFAXIMIN 550 MG TAB PO SCH ×2 (10:04→20:40)
[2017-03-30] MEDS: SEVELAMER CARBONATE 800 MG TAB PO SCH ×3 (10:04→17:38)
[2017-03-30] MEDS: valACYclovir HCL 500 MG TAB PO SCH (10:04)
[2017-03-30] MEDS: FOLIC ACID 1 MG TAB PO SCH (10:04)
[2017-03-30] MEDS: CARVEDILOL 12.5 MG TAB PO SCH ×2 (10:05→20:40)
[2017-03-30] MEDS: DOCUSATE SODIUM 50 MG/SENNA 8.6 MG TAB PO SCH ×2 (10:05→20:41)
[2017-03-30] MEDS: PANTOPRAZOLE SOD 40 MG DELAYED RELEASE TAB PO SCH (10:05)
[2017-03-30] MEDS: DILTIAZEM-CD 180 MG CAP ER PO SCH (10:05)
[2017-03-30] MEDS: SODIUM CHLORIDE 0.9% FLUSH 10 ML FLUSH IV FLUSH SCH ×2 (10:08→20:41)
--- NOTE | 2017-03-30 11:18 | HHI.PR ---
Subjective Subjective Remarks sitting up no cp no sob afib, well controlled HR 80s doesn't want any procedures, pacemaker wants to go home Review of Systems Constitutional Constitutional Remarks 12 point ROS completed, unreliable Vitals/Results Intake & Output 03/29/17 03/29/17 03/30/17 15:00 23:00 07:00 Intake Total 240 ml 120 ml 0 ml Output Total 2200 ml 0 ml 0 ml Balance -1960 ml 120 ml 0 ml Intake Oral 240 ml 120 ml 0 ml Output Urine Total 100 ml 0 ml 0 ml Hemodialysis 2100 ml # Bowel Movements 1 0 0 Vital Signs Vital Signs Date Time Temp Pulse Resp B/P Pulse Ox O2 Delivery O2 Flow Rate FiO2 03/30/17 08:00 98.0 101 18 157/90 94 03/30/17 04:12 97.8 84 16 130/74 95 03/29/17 23:25 98.8 96 16 155/84 96 03/29/17 20:25 98 03/29/17 19:47 98.7 96 16 114/76 98 03/29/17 17:46 96 21 03/29/17 16:00 98.2 127 20 161/95 96 CBC/BMP: 03/27/17 0603 03/27/17 0603 Physical Exam General General Appearance: Well Developed, No Acute Distress, Comfortable, Malnourished Eyes Eye Exam: Pupils Equal Ears & Nose Ears & Nose Exam: Nasal Mucosa [place] Throat Throat Exam: Oral Mucosa [place] & Moist Neck Neck Exam: Neck Supple Pulmonary Resp Exam: Crackles, Decreased Bases, Diminished Breath Sounds Resp Remarks faint rales bibasilar Cardiology CV Exam: Regular, Normal Sinus Rhythm, Good Perfusion Gastrointestinal/Abdomen GI Exam: Soft, Non-Tender, Bowel Sounds Present Musculoskeletal MS Exam: Joints Intact, Normal Gait, Normal Tone Integumentary Skin Exam: Clear, Warm, Dry, Intact Extremeties Extremities Exam: No Edema, Pedal Pulses Palpable Extremeties Remarks AVF right arm + B/T Neurologic Neuro Exam: Awake, Oriented, Speech Clear, Moving All Extremities, No Focal Deficits Psychiatric Psych Exam: Appropriate Responses VTE Prophylaxis VTE Prophylaxis Meds: Heparin Assessment/Plan Problem List: (1) Altered mental status (2) Tachy-luis syndrome (3) A-fib (4) ESRD (end stage renal disease) (5) Acute diastolic CHF (congestive heart failure) (6) Non-compliance (7) HTN (hypertension) (8) DM (diabetes mellitus) (9) Cardiomyopathy (10) HIV disease (11) COPD (chronic obstructive pulmonary disease) Assessment/Plan 66-year-old male with history of HIV, end-stage renal disease on dialysis, atrial fibrillation on aspirin, 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 Patient presented to emergency room with altered mental status, cough. Found in pulmonary edema. Still requiring intensive care monitoring Pulm edema, fluid overload. Acute CHF. Had Echo recently January 2017, EF 55 to 60% -Nephrology following -s/p HD treatment 03/22, and 03/24 -Weaned off BIPAP, on NC -Duonebs -stable, no resp. distress Lactic Acidosis, . Possible sepsis -cultures, negative, dc abx today -acidosis resolved Metabolic encephalopathy poss secondary to pulmonary edema, sepsis; now resolved -monitor neuro status. -improved End-stage renal disease, with hyperkalemia Hemodialysis, appreciate renal consult and plan a care Aflutter with RVR, poss. tachy luis syndrome -continue PO Cardizem 360 mg po daily -Cardizem drip off for now -continue Coreg 25 mg po BID -continue ASA -appreciate Dr Mays's input, -Dr Palacios consulted, will continue to follow. Recommends to control HR medically and if not able, consider ablation -may need PPM, pt. refusing any procedures, has been discussed extensively. -HR stable, 90s Hypertension, stable -Medical management HIV Continue home medication Diabetes, diet control, blood glucose stable Accu-Cheks before meals and at bedtime with insulin therap Heparin/SCDs for DVT prophylaxisis CM consult DC planning, pt. refusing SNF, set up HHC poss dc today, pt. continues to refuse procedures. D/W RN D/W Dr. Petersen D/W pt D/W CM This patient was seen by myself and Dr. Petersen, this note is written on her behalf Problem Qualifiers (1) Altered mental status: Qualified Code: R41.82 - Altered mental status, unspecified altered mental status type (2) A-fib: Qualified Code: I48.91 - Atrial fibrillation, unspecified type (3) HTN (hypertension): Qualified Code: I10 - Essential hypertension (4) DM (diabetes mellitus): (5) Cardiomyopathy: Qualified Code: I42.9 - Cardiomyopathy, unspecified type (6) COPD (chronic obstructive pulmonary disease): Qualified Code: J44.9 - Chronic obstructive pulmonary disease, unspecified COPD type Shanthi Alarcon Mar 30, 2017 11:18 (6) COPD (chronic obstructive pulmonary disease): Qualified Code: J44.9 - Chronic obstructive pulmonary disease, unspecified COPD type Shanthi Alarcon Mar 30, 2017 11:18
[2017-03-30] MEDS ORDERED: HEPARIN SODIUM - IV 10,000 UNITS/10 ML VIAL IV PRN ×2 (12:45)
[2017-03-30] MEDS ORDERED: HEPARIN 25,000 UNITS-D5W 250 ML - PREMIX IV SCH (12:45)
--- NOTE | 2017-03-30 13:08 | PD.CARD.PN ---
Subjective Subjective Remarks lethargic Objective Vital Signs / I&O Vital Signs Date Time Temp Pulse Resp B/P Pulse Ox O2 Delivery O2 Flow Rate FiO2 03/30/17 12:00 97.7 119 18 150/90 99 03/30/17 08:00 98.0 101 18 157/90 94 03/30/17 04:12 97.8 84 16 130/74 95 03/29/17 23:25 98.8 96 16 155/84 96 03/29/17 20:25 98 03/29/17 19:47 98.7 96 16 114/76 98 03/29/17 17:46 96 21 03/29/17 16:00 98.2 127 20 161/95 96 I/O 03/29/17 03/29/17 03/29/17 03/30/17 03/30/17 03/30/17 07:00 15:00 23:00 07:00 15:00 23:00 Intake Total 120 ml 240 ml 120 ml 0 ml Output Total 0 ml 2200 ml 0 ml 0 ml Balance 120 ml -1960 ml 120 ml 0 ml Intake Oral 120 ml 240 ml 120 ml 0 ml Output Urine Total 0 ml 100 ml 0 ml 0 ml Hemodialysis 2100 ml # Bowel Movements 0 1 0 0 Physical Exam GENERAL: SKIN: Warm and dry. HEAD: Normocephalic. EYES: No scleral icterus. No injection or drainage. NECK: Supple, trachea midline. No JVD or lymphadenopathy. CARDIOVASCULAR: Regular rate and rhythm without murmurs, gallops, or rubs. RESPIRATORY: Breath sounds equal bilaterally. No accessory muscle use. GASTROINTESTINAL: Abdomen soft, non-tender, nondistended. MUSCULOSKELETAL: No cyanosis, or edema. BACK: Nontender without obvious deformity. No CVA tenderness. Assessment and Plan Problem List: (1) ESRD (end stage renal disease) (2) A-fib (3) HIV disease (4) CAD (coronary artery disease) (5) Cardiomyopathy (6) DM (diabetes mellitus) (7) Non-compliance (8) Bradycardia (9) Tachy-luis syndrome Assessment and Plan 1.) Atrial fib - hr ranging between 60 and 130 in aflutter with addition of coreg, tachy luis syndrome, f/u rec Dr Palacios, trial of iv hep and coumadin if hgb remains stable and care provider can provide f/u with inr checks, f/u cbc in am, d/w nurse, continue prn cardizem drip to keep hr<130 Problem Qualifiers (1) A-fib: Qualified Code: I48.91 - Atrial fibrillation, unspecified type (2) CAD (coronary artery disease): Qualified Code: I25.118 - Coronary artery disease involving [place] coronary artery of [place] heart with other form of angina pectoris (3) Cardiomyopathy: Qualified Code: I42.9 - Cardiomyopathy, unspecified type (4) DM (diabetes mellitus): Onesimo Mays MD Mar 30, 2017 13:08
[2017-03-30 14:58] LABS: HEMATOCRIT 36.3 % (39.0-51.0); MEAN CELL VOLUME 111.9 FL (80.0-100.0); MEAN CORPUSCULAR HGB CONC 33.9 % (32.0-36.0); PLATELET COUNT 115 TH/MM3 (150-450); RED BLOOD COUNT 3.24 MIL/MM3 (4.50-5.90); RED CELL DISTRIBUTION WIDTH 14.9 % (11.6-17.2); REVIEW FLAG FINAL; WHITE BLOOD COUNT 3.3 TH/MM3 (4.0-11.0)
[2017-03-30] MEDS ORDERED: WARFARIN SOD 5 MG TAB PO ONE (16:00)
--- NOTE | 2017-03-30 19:06 | HHI.PR ---
Subjective Remarks Doing ok Objective Vital Signs Date Time Temp Pulse Resp B/P Pulse Ox O2 Delivery O2 Flow Rate FiO2 03/30/17 16:00 97.9 63 18 156/77 97 03/30/17 12:00 97.7 119 18 150/90 99 03/30/17 09:40 100 03/30/17 08:00 74 03/30/17 08:00 98.0 101 18 157/90 94 03/30/17 04:12 97.8 84 16 130/74 95 03/29/17 23:25 98.8 96 16 155/84 96 03/29/17 20:25 98 03/29/17 19:47 98.7 96 16 114/76 98 I/O 03/29/17 03/29/17 03/29/17 03/30/17 03/30/17 03/30/17 07:00 15:00 23:00 07:00 15:00 23:00 Intake Total 120 ml 240 ml 120 ml 0 ml 480 ml Output Total 0 ml 2200 ml 0 ml 0 ml Balance 120 ml -1960 ml 120 ml 0 ml 480 ml Intake Oral 120 ml 240 ml 120 ml 0 ml 480 ml Output Urine Total 0 ml 100 ml 0 ml 0 ml Hemodialysis 2100 ml # Voids 0 # Bowel Movements 0 1 0 0 1 Result Diagram: 03/30/17 1401 03/27/17 0603 Imaging Alert, apparently oriented. Not able to formulate a couple sentences without closing his eyes and need to be woke up. Lungs: ventilated. Heart: s1, s2 regular abdomen: obese, no mass Ext: no edema Current Medications Medications (Trade) Dose Ordered Sig/Michael Route Start Time Stop Time Status Last Admin (NS Flush) 2 ml UNSCH PRN IV FLUSH 03/22/17 11:45 03/27/17 09:03 (NS Flush) 2 ml BID IV FLUSH 03/22/17 21:00 03/30/17 10:08 (Zofran Inj) 4 mg Q6H PRN IVP 03/22/17 11:45 (Narcan Inj) 0.4 mg UNSCH PRN IV 03/22/17 11:45 (Munira-Colace) 1 tab BID PO 03/22/17 21:00 03/30/17 10:05 (Milk Of Magnesia Liq) 30 ml Q12H PRN PO 03/22/17 11:45 (Senokot) 17.2 mg Q12H PRN PO 03/22/17 11:45 (Dulcolax Supp) 10 mg DAILY PRN RECTAL 03/22/17 11:45 Lactulose 30 ml 30 ml DAILY PRN PO 03/22/17 11:45 (NS 1000 ml Inj) 1,000 ml @ 0 mls/hr Q0M PRN IV 03/22/17 15:04 Heparin Sodium (Porcine) 8000 units 8,000 units UNSCH PRN IVF 03/22/17 15:15 03/26/17 14:57 Sodium Chloride 1,000 ml @ 200 mls/hr Q5H PRN IV 03/22/17 15:04 (NS 1000 ml Inj) 1,000 ml @ 0 mls/hr Q0M PRN IV 03/22/17 15:04 (Mannitol Inj) 12.5 gm UNSCH PRN IV 03/22/17 15:15 (Albumin 25% Inj) 25 gm UNSCH PRN IV 03/22/17 15:15 (NS Flush) 5 ml UNSCH PRN IV FLUSH 03/22/17 15:15 03/27/17 09:03 (Heparin Inj) UNSCH PRN .XX 03/22/17 15:15 (Gentamicin (Dialysis) Inj) 20 mg UNSCH PRN IV 03/22/17 15:15 (Zofran Inj) 4 mg UNSCH PRN IV 03/22/17 15:15 (Tylenol) 650 mg UNSCH PRN PO 03/22/17 15:15 (Benadryl) 25 mg UNSCH PRN PO 03/22/17 15:15 (Nitrostat Sl) 0.4 mg UNSCH PRN SL 03/22/17 15:15 (Catapres) 0.1 mg UNSCH PRN PO 03/22/17 15:15 (Gelfoam 12 Mm/7 Mm Top) 1 foam UNSCH PRN TOP 03/22/17 15:15 03/29/17 09:52 (Ecotrin Ec) 81 mg DAILY PO 03/23/17 09:00 03/30/17 10:04 (Coreg) 25 mg Q12HR PO 03/22/17 21:00 03/30/17 10:05 (Cardizem Cd) 360 mg DAILY PO 03/23/17 00:40 03/30/17 10:05 (Tricor) 145 mg HS PO 03/22/17 21:00 Hold (Folate) 1 mg DAILY PO 03/23/17 09:00 03/30/17 10:04 (Protonix) 40 mg DAILY PO 03/23/17 09:00 03/30/17 10:05 (Xifaxan) 550 mg BID PO 03/22/17 21:00 03/30/17 10:04 (Valtrex) 1,000 mg DAILY PO 03/23/17 09:00 03/30/17 10:04 (D50w (Vial) Inj) 50 ml UNSCH PRN IV 03/22/17 18:15 (Glucagon Inj) 1 mg UNSCH PRN OTHER 03/22/17 18:15 Miscellaneous Information Patient in critical care unit? Ass... Q361D .XX 03/22/17 18:45 Patient Own Medication PT OWN MED: GENVOYA... DAILY PO 03/23/17 09:00 Hold (Tylenol) 650 mg Q4H PRN PO 03/23/17 10:00 Epoetin Erick 5000 units 5,000 units UNSCH PRN IV 03/23/17 13:00 03/29/17 09:53 (Cardizem Inj/NS Inj) 125 ml @ 0 mls/hr TITRATE IV 03/23/17 16:15 03/26/17 16:33 (Tylenol-Codeine #3) 1 tab Q4H PRN PO 03/25/17 11:15 03/30/17 06:04 (Ambien) 5 mg HS PRN PO 03/25/17 14:00 03/29/17 22:33 (Dilaudid Pf Inj) 0.5 mg Q4H PRN IV 03/26/17 19:15 03/28/17 21:35 (Renvela) 3,200 mg TID PO 03/29/17 13:00 03/30/17 17:38 Assessment and Plan Problem List: (1) New onset atrial flutter Status: Acute Plan: Patient in atrial flutter with a control rate. Refuse anticoagulation. Her sister stated patient wants to be on plavix and aspirin Hx of bleeding Not a good candidate for ablation. IV heparin can be DC. Patient can be DH whenever ok with the managing team Case discussed with Dr Petersen, her sister and the nurses. I will be available on a PRN basis Fausto Palacios MD Mar 30, 2017 19:05
[2017-03-31 03:50] VITALS: BP 155/95; PULSE 103; RESP 16; TEMP 98.3; O2SAT 98
[2017-03-31] MEDS: INSULIN ASPART SUPPLEMENTAL SCALE SQ SCH (05:42)
[2017-03-31 08:00] VITALS: BP 165/103; PULSE 103; PULSE 85; RESP 18; TEMP 97.5; O2SAT 97
[2017-03-31] MEDS: CARVEDILOL 12.5 MG TAB PO SCH (08:31)
[2017-03-31] MEDS: ASPIRIN EC 81 MG TABEC PO SCH (08:31)
[2017-03-31] MEDS: DILTIAZEM-CD 180 MG CAP ER PO SCH (08:31)
[2017-03-31] MEDS: SEVELAMER CARBONATE 800 MG TAB PO SCH (08:32)
[2017-03-31] MEDS: SODIUM CHLORIDE 0.9% FLUSH 10 ML FLUSH IV FLUSH SCH (08:35)
[2017-03-31] MEDS: RIFAXIMIN 550 MG TAB PO SCH (08:37)
[2017-03-31] MEDS: DOCUSATE SODIUM 50 MG/SENNA 8.6 MG TAB PO SCH (08:38)
[2017-03-31] MEDS: PANTOPRAZOLE SOD 40 MG DELAYED RELEASE TAB PO SCH (08:38)
[2017-03-31] MEDS: FOLIC ACID 1 MG TAB PO SCH (08:38)
[2017-03-31] MEDS: EPOETIN ALFA 10,000 UNITS/ML VIAL IV PRN (11:46)
--- NOTE | 2017-03-31 14:03 | PD.CARD.PN ---
Subjective Subjective Remarks asleep in nad Objective Vital Signs / I&O Vital Signs Date Time Temp Pulse Resp B/P Pulse Ox O2 Delivery O2 Flow Rate FiO2 03/31/17 08:00 97.5 103 18 165/103 97 03/31/17 03:50 98.3 103 16 155/95 98 03/30/17 20:00 107 03/30/17 19:52 98.4 109 16 156/97 99 03/30/17 16:00 97.9 63 18 156/77 97 I/O 03/30/17 03/30/17 03/30/17 03/31/17 03/31/17 03/31/17 07:00 15:00 23:00 07:00 15:00 23:00 Intake Total 0 ml 480 ml 240 ml 969 ml Output Total 0 ml 0 ml 3500 ml Balance 0 ml 480 ml 240 ml 969 ml -3500 ml Intake Oral 0 ml 480 ml 240 ml 120 ml IV Total 849 ml Output Urine Total 0 ml 0 ml Hemodialysis 3500 ml # Voids 0 0 # Bowel Movements 0 1 0 0 Physical Exam GENERAL: SKIN: Warm and dry. HEAD: Normocephalic. EYES: No scleral icterus. No injection or drainage. NECK: Supple, trachea midline. No JVD or lymphadenopathy. CARDIOVASCULAR: Regular rate and rhythm without murmurs, gallops, or rubs. RESPIRATORY: Breath sounds equal bilaterally. No accessory muscle use. GASTROINTESTINAL: Abdomen soft, non-tender, nondistended. MUSCULOSKELETAL: No cyanosis, or edema. BACK: Nontender without obvious deformity. No CVA tenderness. Assessment and Plan Problem List: (1) ESRD (end stage renal disease) (2) A-fib (3) HIV disease (4) CAD (coronary artery disease) (5) Cardiomyopathy (6) DM (diabetes mellitus) (7) Non-compliance (8) Bradycardia (9) Tachy-luis syndrome Assessment and Plan 1.) Atrial fib - hr ranging between 60 and 130 in aflutter with addition of coreg, tachy luis syndrome, f/u rec Dr Palacios, patient and care provider refuse anticoagulation, continue aspirin 81 mg qd Problem Qualifiers (1) A-fib: Qualified Code: I48.91 - Atrial fibrillation, unspecified type (2) CAD (coronary artery disease): Qualified Code: I25.118 - Coronary artery disease involving [place] coronary artery of [place] heart with other form of angina pectoris (3) Cardiomyopathy: Qualified Code: I42.9 - Cardiomyopathy, unspecified type (4) DM (diabetes mellitus): Onesimo Mays MD Mar 31, 2017 14:03
--- NOTE | 2017-03-31 15:28 | HHI.NPPN ---
Subjective General Problems: Anemia Renal Failure: Chronic, End Stage Renal Disease Interval History He was dialyzed earlier today. Heart rate controlled. No acute new concerns. Pt to be discharged today. (Moni Yung) Review of Systems General Constitutional: Fatigue (Moni Yung) Respiratory Lungs: Wheeze (Moni Yung) Cardiovascular Cardiac: COONEY (Moni Yung) Objective Data Data 03/30/17 03/31/17 19:00 07:00 Intake Total 480 ml 1209 ml Output Total 0 ml Balance 480 ml 1209 ml Intake Oral 480 ml 360 ml IV Total 849 ml Output Urine Total 0 ml # Voids 0 0 # Bowel Movements 1 0 Vital Signs Date Time Temp Pulse Resp B/P Pulse Ox O2 Delivery O2 Flow Rate FiO2 03/31/17 08:00 85 03/31/17 08:00 97.5 103 18 165/103 97 03/31/17 03:50 98.3 103 16 155/95 98 03/30/17 20:00 107 03/30/17 19:52 98.4 109 16 156/97 99 03/30/17 16:00 97.9 63 18 156/77 97 (Moni Yung) -: 03/30/17 1401 03/27/17 0603 Physical Exam General Appearance: Well Developed, No Acute Distress, Comfortable, Malnourished ( Moni Yung) Eyes Eye Exam: Pupils Equal (Moni Yung) Ears & Nose Ears & Nose Exam: Nasal Mucosa [place] (Moni Yung) Throat Throat Exam: Oral Mucosa [place] & Moist (Moni Yung) Neck Neck Exam: Neck Supple (Moni Yung) Pulmonary Resp Exam: Crackles, Decreased Bases, Diminished Breath Sounds (Moni Yung) Cardiology CV Exam: Regular, Normal Sinus Rhythm, Good Perfusion (Moni Yung) Gastrointestinal/Abdomen GI Exam: Soft, Non-Tender, Bowel Sounds Present (Moni Yung) Musculoskeletal MS Exam: Joints Intact, Normal Gait, Normal Tone (Moni Yung) Integumentary Skin Exam: Clear, Warm, Dry, Intact (Moni Yung) Extremeties Extremities Exam: No Edema, Pedal Pulses Palpable (Moni Yung) Neurologic Neuro Exam: Awake, Oriented, Speech Clear, Moving All Extremities, No Focal Deficits Neuro Remarks awake, oriented (Moni Yung) Psychiatric Psych Exam: Appropriate Responses (Moni Yung) Assessment/Plan Discussed Condition With: Patient Assessment Summary: Anemia of CKD, End Stage Renal Disease Problem List: (1) Dependent on hemodialysis Plan: continue TTS dialysis,can resume outpatient HD if discharged he had 3.5 L UF today no acute renal concerns has functioning AVF for dialysis high protein diet continue Renvela for metabolic bone disorder he is cleared for discharge from nephrology perspective (2) SOB (shortness of breath) Plan: improved UF as tolerated with dialysis (3) Encephalopathy Plan: improved, mental status is back to baseline (4) Hyperkalemia Plan: corrected with HD (5) Atrial flutter Plan: he has tachy luis syndrome on PO Cardizem and metoprolol refused AV jadon ablation, PPM placement, and anticoagulation on ASA, [address] Palacios has cleared for discharge (6) Anemia Plan: Epogen with HD (7) HIV disease Plan: on HAART (Moni Yung) Plan patient was seen and examined. To be discharged after dialysis. Agree with above assessment and plan. (Tyson Arboleda MD) Problem Qualifiers (1) Atrial flutter: Qualified Code: I48.92 - Atrial flutter, unspecified type Moni Yung Mar 31, 2017 15:28 Tyson Arboleda MD Apr 01, 2017 14:18
--- NOTE | 2017-03-31 15:59 | HHI.PR ---
Subjective Subjective Remarks examined in HD slow to respond, oriented to self, place wants to go home no cp no sob afib, well controlled HR 80s Review of Systems Constitutional Constitutional Remarks 12 point ROS completed, unreliable Vitals/Results Intake & Output 03/30/17 03/30/17 03/31/17 15:00 23:00 07:00 Intake Total 480 ml 240 ml 969 ml Output Total 0 ml Balance 480 ml 240 ml 969 ml Intake Oral 480 ml 240 ml 120 ml IV Total 849 ml Output Urine Total 0 ml # Voids 0 0 # Bowel Movements 1 0 0 Vital Signs Vital Signs Date Time Temp Pulse Resp B/P Pulse Ox O2 Delivery O2 Flow Rate FiO2 03/31/17 08:00 85 03/31/17 08:00 97.5 103 18 165/103 97 03/31/17 03:50 98.3 103 16 155/95 98 03/30/17 20:00 107 03/30/17 19:52 98.4 109 16 156/97 99 03/30/17 16:00 97.9 63 18 156/77 97 CBC/BMP: 03/30/17 1401 03/27/17 0603 Physical Exam General General Appearance: Well Developed, No Acute Distress, Comfortable, Malnourished Eyes Eye Exam: Pupils Equal Ears & Nose Ears & Nose Exam: Nasal Mucosa [place] Throat Throat Exam: Oral Mucosa [place] & Moist Neck Neck Exam: Neck Supple Pulmonary Resp Exam: Crackles, Decreased Bases, Diminished Breath Sounds Resp Remarks faint rales bibasilar Cardiology CV Exam: Regular, Normal Sinus Rhythm, Good Perfusion Gastrointestinal/Abdomen GI Exam: Soft, Non-Tender, Bowel Sounds Present Musculoskeletal MS Exam: Joints Intact, Normal Gait, Normal Tone Integumentary Skin Exam: Clear, Warm, Dry, Intact Extremeties Extremities Exam: No Edema, Pedal Pulses Palpable Extremeties Remarks AVF right arm + B/T Neurologic Neuro Exam: Awake, Oriented, Speech Clear, Moving All Extremities, No Focal Deficits Psychiatric Psych Exam: Appropriate Responses VTE Prophylaxis VTE Prophylaxis Meds: Heparin Assessment/Plan Problem List: (1) Altered mental status (2) Tachy-luis syndrome (3) A-fib (4) ESRD (end stage renal disease) (5) Acute diastolic CHF (congestive heart failure) (6) Non-compliance (7) HTN (hypertension) (8) DM (diabetes mellitus) (9) Cardiomyopathy (10) HIV disease (11) COPD (chronic obstructive pulmonary disease) Assessment/Plan 66-year-old male with history of HIV, end-stage renal disease on dialysis, atrial fibrillation on aspirin, 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 Patient presented to emergency room with altered mental status, cough. Found in pulmonary edema. Still requiring intensive care monitoring Pulm edema, fluid overload. Acute CHF. Had Echo recently January 2017, EF 55 to 60% -Nephrology following -s/p HD treatment 03/22, and 03/24 -Weaned off BIPAP, on NC -Duonebs -stable, no resp. distress Lactic Acidosis, . Possible sepsis -cultures, negative, dc abx today -acidosis resolved Metabolic encephalopathy poss secondary to pulmonary edema, sepsis; now resolved -monitor neuro status. -improved End-stage renal disease, with hyperkalemia Hemodialysis, appreciate renal consult and plan a care Aflutter with RVR, poss. tachy luis syndrome -continue PO Cardizem 360 mg po daily -Cardizem drip off for now -continue Coreg 25 mg po BID -continue ASA -appreciate Dr Mays's input, -Dr Palacios consulted, will continue to follow. Recommends to control HR medically. No procedure planned at this time -may need PPM, pt. refusing any procedures, has been discussed extensively. -put on hep gtt yesterday to transition to Coumadin, pt. refused. Attending d/w sister, she respects pt's wishes, no anticoagulation -cardiology recommends to continue ASA. Off Heparin now -HR stable, tolerating CCB and BB okay Hypertension, stable -Medical management HIV Continue home medication Diabetes, diet control, blood glucose stable Accu-Cheks before meals and at bedtime with insulin therap Heparin/SCDs for DVT prophylaxisis CM consult DC planning, pt. refusing SNF, set up C HR stable, 90s. No fever, back to baseline mental status Pt. with mult. comorbidities, likely to return to hospital with exacerbation of his illnesses F/U nephrology, cardiology, PCP Diet-heart healthy Activity-as tolerated D/W RN D/W Dr. Petersen D/W pt D/W CM This patient was seen by myself and Dr. Petersen, this note is written on her behalf Problem Qualifiers (1) Altered mental status: Qualified Code: R41.82 - Altered mental status, unspecified altered mental status type (2) A-fib: Qualified Code: I48.91 - Atrial fibrillation, unspecified type (3) HTN (hypertension): Qualified Code: I10 - Essential hypertension (4) DM (diabetes mellitus): (5) Cardiomyopathy: Qualified Code: I42.9 - Cardiomyopathy, unspecified type (6) COPD (chronic obstructive pulmonary disease): Qualified Code: J44.9 - Chronic obstructive pulmonary disease, unspecified COPD type Shanthi Alarcon Mar 31, 2017 15:59
--- NOTE | 2017-03-31 19:14 | HHI.DS ---
Discharge Summary Admission Date Mar 22, 2017 at 11:33 Discharge Date: Mar 31, 2017 Admitting Diagnosis acidosis, chf exacerbation (1) Altered mental status (2) Pulmonary edema (3) Encephalopathy (4) HIV disease (5) DM (diabetes mellitus) (6) HTN (hypertension) (7) Cardiomyopathy (8) End stage renal disease (9) CAD (coronary artery disease) (10) Non-compliance (11) COPD (chronic obstructive pulmonary disease) (12) Atrial fibrillation (13) Hyperkalemia (14) Acute diastolic CHF (congestive heart failure) (15) Atrial flutter Brief History CBC/BMP: 03/30/17 1401 03/27/17 0603 Significant Findings Laboratory Tests Test 03/30/17 14:01 White Blood Count 3.3 TH/MM3 (4.0-11.0) Red Blood Count 3.24 MIL/MM3 (4.50-5.90) Hemoglobin 12.3 GM/DL (13.0-17.0) Hematocrit 36.3 % (39.0-51.0) Mean Corpuscular Volume 111.9 FL (80.0-100.0) Mean Corpuscular Hemoglobin 38.0 PG (27.0-34.0) Platelet Count 115 TH/MM3 (150-450) Imaging Last Impressions Chest X-Ray 03/22/17 0808 Signed Impressions: Service Date/Time: Wednesday, March 22, 2017 08:12 - CONCLUSION: 1. Advanced cardiomegaly and probable interstitial edema. Oscar Beaulieu MD Head CT 03/22/17 0000 Signed Impressions: Service Date/Time: Wednesday, March 22, 2017 21:15 - CONCLUSION: Nonspecific white matter changes. No acute disease. Jorge Christiansen MD Abdomen/Pelvis CT 03/22/17 0000 Signed Impressions: Service Date/Time: Wednesday, March 22, 2017 21:19 - CONCLUSION: 1. No evidence for pancreatitis. 2. Atrophic bilateral kidneys with bilateral renal cysts. 3. Right pleural effusion. 4. Questionable wall thickening of the ascending and transverse colon. Jorge Christiansen MD Hospital Course This is a 65 year old black male with significant past medical history of COPD, ESRD, CHF, HIV, substance abuse, sepsis secondary to infected right AVF that was removed. Recent admission in January for TIA. Pt. is on hemodialysis every Tuesdays, and Saturdays. Per ED report, pt's sister reported he was not acting right after his HD treatment on Tuesday. Today, she tried to wake patient up to go to dialysis and he appeared lethargic. Reported to ED physician, that he was not feeling well, was weak, had a non productive cough. Patient is a 66-year-old male who presents to emergency room for evaluation of lethargy. 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 Reported that he has been coughing, had a nonproductive cough and generalized weakness. Patient was supposed to go to dialysis but did not have he was sent directly to the emergency room for evaluation. Pt. was noted tachycardic, aflutter rhythm. Has received Cardizem 30 mg PO. CXR showed advanced cardiomegaly and probable interstitial edema. He was noted with involuntary tremors. ABGs done, he was acidotic. Lactic acid 1. He was pancultured and Vanco and Zosyn were given. He was put on BIPAP. Nephrology was consulted and he was taken for HD. He was back in the ED waiting for ICU bed. He was awake, BIPAP in place. Remained tachycardic. Sats 98. Denies CP, some SOB. Had a cough. Pt. 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 Patient presented to emergency room with altered mental status, cough. Found in pulmonary edema. Patient initially admitted to the intensive care unit, required Cardizem drip. Eventually weaned off the drip and downgraded to telemetry floor. Pulm edema, fluid overload. Acute CHF. Had Echo recently January 2017, EF 55 to 60% -Nephrology following -s/p HD treatment -Weaned off BIPAP, on NC -Duonebs -stable, no resp. distress Lactic Acidosis, . Possible sepsis -cultures, negative, and pleaded course of antibiotics -acidosis resolved Metabolic encephalopathy poss secondary to pulmonary edema, sepsis; now resolved -monitor neuro status. -improved, patient usually slow to respond, he was oriented for the most part to self and place. Not a very good historian. Patient was at his baseline. End-stage renal disease, with hyperkalemia -Hemodialysis, appreciate renal consult and plan a care -He continued with dialysis treatment and tolerated well Aflutter with RVR, poss. tachy luis syndrome -continue PO Cardizem 360 mg po daily -Cardizem drip weaned off -continue Coreg 25 mg po BID -continue ASA -appreciate Dr Mays's input, recommended consult with Dr Palacios for poss ablation/PPM. -Pt. adamant that he did not want procedures. In previous admissions, he was recommended anticoagulation for A. fib but he declined. -Dr Palacios consulted. Recommended to control HR medically. No procedure planned at this time -put on hep gtt yesterday per Dr. Mays with the plan to transition to Coumadin. Pt. refused. Attending d/w sister, she respects pt's wishes, no anticoagulation -cardiology recommended to continue ASA. Off Heparin now -HR stable, tolerating CCB and BB okay for dc Hypertension, stable -Medical management HIV Continued home medication Diabetes, diet control, blood glucose stable Accu-Cheks before meals and at bedtime with insulin therap Heparin/SCDs for DVT prophylaxisis CM consult DC planning, pt. refusing SNF, set up [facility] HR stable, 90s. No fever, back to baseline mental status Pt. with mult. comorbidities, likely to return to hospital with exacerbation of his illnesses Instructed to: F/U nephrology, cardiology, PCP Diet-heart healthy Activity-as tolerated Pt Condition on Discharge: Stable Discharge Disposition: Disch w/ Home Health Serv Discharge Instructions DIET: Follow Instructions for: Heart Healthy Diet Activities you can perform: Weight Bearing as [place] Follow up Referrals: Cardiology with Onesimo Mays MD Infectious Disease - 2 Weeks PCP Follow-up New Medications: Acetaminophen W/ Codeine (Acetaminophen/Codeine Ramon 300-30 mg) 1 Tab Tab 1 TAB PO Q4H PRN PAIN SCALE 3 TO 10 #60 TAB Continued Medications: Aspirin DR (Aspirin EC) 81 Mg Tabdr 81 MG PO MoWeFr @ HS Ref 0 TAB Carvedilol (Coreg) 25 Mg Tab 25 MG PO Q12HR #60 Ref 0 TAB Denosumab Inj (Prolia Inj) 60 Mg/Ml Inj 60 MG SQ Q180D VIAL Diltiazem CD 24 HR (Cardizem CD 24 HR) 360 Mg Caper 360 MG PO DAILY #30 Ref 0 CAP Docusate Sodium (Docusate Sodium) 100 Mg Cap 100 MG PO WEEKLY ON SUNDAYS Prevent Constipation #60 Ref 0 CAP Ritbiivqecpw-Levzvkifwn-Pdydqvmrwxis-Tenofvir (Genvoya) [phone] Mg Tab 1 TAB PO DAILY Mgmt Viral Infection TAB Ergocalciferol (Ergocalciferol) 50,000 Unit Cap 08307 UNITS PO Q7D ON SUNDAYS Nutritional Supplement #30 Ref 0 CAP Fenofibrate (Fenofibrate) 145 Mg Tab 145 MG PO HS HYPERLIPIDEMIA #30 Ref 0 TAB Folic Acid (Folic Acid) 1 Mg Tablet 1 MG PO DAILY Pantoprazole (Protonix) 40 Mg Tab 40 MG PO DAILY Reflux TAB Rifaximin (Xifaxan) 550 Mg Tab 550 MG PO BID HEPATITIS #60 Ref 0 TAB Sevelamer Carbonate (Renvela) 800 Mg Tab 1600 MG PO TID RENAL FAILURE #90 TAB Temazepam (Restoril) 15 Mg Cap 15 MG PO HS PRN INSOMNIA #30 Ref 0 CAP Valacyclovir (Valtrex) 1 Gm Tab 1 GM PO DAILY Mgmt Viral Infection #60 Ref 0 TAB Discontinued Medications: Acetaminophen-Codeine (Tylenol-Codeine #3) 300-30 mg Tab 1 TAB PO Q4H PRN PAIN Ref 0 TAB Epinephrine Inj (Epinephrine Inj) 1 Mg/Ml Inj 0.3 MG SQ ONCE Give with any signs of respiratory distress. PRN ALLERGIC REACTION #1 VIAL Hydrocortisone Inj (Solu-Cortef Inj) 250 Mg Inj 250 MG IV PUSH ONCE Give over 30-60 seconds. PRN ALLERGIC REACTION #1 Ref 0 VIAL Vancomycin Inj (Vancomycin Inj) 10 Gm Inj 1500 MG IV WITH DIALYSIS MRSA graft site infection Days 30 Ref 0 VIAL Shanthi Alarcon Mar 31, 2017 19:14
== END 2017-03-31 16:11 | disposition home health service (06) | DRG 291 ==
LOC: NEPE 07:56 → OBSVTOIN 11:33 → NEDA 11:33 → HIMN 17:30 → N04B 03-29 02:14
PROVIDERS: ADMIT Internal Medicine; ATTEND Internal Medicine
PROC: 5A1D60Z (ICD-10-PCS; principal; 2017-03-22)
PROC: 5A09357 Assistance with Respiratory Ventilation, Less than 24 Consecutive Hours, Continuous Positive Airway Pressure (ICD-10-PCS; 2017-03-22)
DX: I13.2 Hypertensive heart and chronic kidney disease with heart failure and with stage 5 chronic kidney disease, or end stage renal disease (principal); A41.9 Sepsis, unspecified organism; G93.41 Metabolic encephalopathy; B20 Human immunodeficiency virus [HIV] disease; E87.2 Acidosis; E46 Unspecified protein-calorie malnutrition; N18.6 End stage renal disease; I50.31 Acute diastolic (congestive) heart failure; I48.92 Unspecified atrial flutter; I42.9 Cardiomyopathy, unspecified; I48.91 Unspecified atrial fibrillation; E11.22 Type 2 diabetes mellitus with diabetic chronic kidney disease; I25.119 Atherosclerotic heart disease of native coronary artery with unspecified angina pectoris; J44.9 Chronic obstructive pulmonary disease, unspecified; D63.1 Anemia in chronic kidney disease; E87.5 Hyperkalemia; I49.5 Sick sinus syndrome; H91.93 Unspecified hearing loss, bilateral; K21.9 Gastro-esophageal reflux disease without esophagitis; E78.5 Hyperlipidemia, unspecified; G25.3 Myoclonus; I73.9 Peripheral vascular disease, unspecified; I65.29 Occlusion and stenosis of unspecified carotid artery; Z68.27 Body mass index [BMI] 27.0-27.9, adult; Z79.01 Long term (current) use of anticoagulants; Z86.14 Personal history of Methicillin resistant Staphylococcus aureus infection; Z86.73 Personal history of transient ischemic attack (TIA), and cerebral infarction without residual deficits; Z91.19 Patient's noncompliance with other medical treatment and regimen; Z99.2 Dependence on renal dialysis
CPT/HCPCS: 36600; 70450; 71010; 74176; 76937; 80048; 80053; 82140; 82550; 82552; 82805; 82948; 83605; 83690; 83735; 84100; 84484; 85025; 85027; 85610; 85730; 87040; 87641; 90935; 93005; 94002; 96374; G8987-GP; G8988-GP; J1170; J1644; J1815; J2543; J3370; J7042; J7050; Q4081

== ENCOUNTER 2017-05-14 18:56 | Emergency (ER) | payer MEDICARE, OTHER ==
[~2017-05-14] VITALS: Ht 165.1 cm; Wt 73.5 kg
[~2017-05-14 18:56] MED LIST changes: +ACET-534 PO; -DRIS50002 PO; -EPIN1INJ21 SQ; +ERGO1CAP30 PO; -FOLI1TAB4 PO; +FOLI1TAB6 PO; -SOLU250I IV PUSH; -TYLETAB34 PO; -VANC10IN IV
[2017-05-14 19:00] VITALS: BP 170/92; PULSE 104; RESP 16; TEMP 98.1; O2SAT 97
--- NOTE | 2017-05-14 19:17 | PD ---
HPI Chief Complaint: Wound/Suture/Staple Re-Check Time Seen by Provider: 19:15 Travel History International Travel<30 days: No Contact w/Intl Traveler<30days: No Traveled to known affect area: No History of Present Illness HPI 66-year-old male who is a dialysis patient presents to the emergency department for dressing change on his right upper extremity AV fistula. Patient reports getting dialysis today and states that the area where he got it has been bleeding. He is uncertain if it has stopped. And is requesting the dressing to be changed. Has no other symptoms to report. PFSH Past Medical History Hx Anticoagulant Therapy: Yes ADHD: No Arthritis: Yes (SPINAL ) Asthma: Yes Autoimmune Disease: Yes Blood Disorders: Yes (HIV) Anxiety: No Depression: No Heart Rhythm Problems: No Cancer: No Cardiovascular Problems: Yes High Cholesterol: Yes Chemotherapy: No Chest Pain: No Congestive Heart Failure: Yes COPD: Yes Cerebrovascular Accident: No Diabetes: Yes Patient Takes Glucophage: No Dialysis: Yes (,,) Diminished Hearing: Yes (BILATERAL) Endocrine: Yes Gastrointestinal Disorders: Yes (constipation) GERD: Yes Glaucoma: No Genitourinary: Yes (ESRD, DIALYSIS --TUE) Headaches: Yes Hepatitis: Yes (HEP C) Hiatal Hernia: No Hypertension: Yes Immune Disorder: Yes (HIV POSITIVE) Implanted Vascular Access Dvce: Yes Kidney Stones: No Musculoskeletal: Yes Neurologic: Yes (AMS AFTER DIALYSIS ) Psychiatric: No Respiratory: Yes Immunizations Current: Yes Migraines: No Myocardial Infarction: No Radiation Therapy: No Renal Failure: Yes (ESRD) Seizures: No Sickle Cell Disease: No Sleep Apnea: No Thyroid Disease: No Ulcer: No Past Surgical History Abdominal Surgery: No AICD: No Appendectomy: No Arteriovenous Shunt: Yes (LUE AV GRAFT) Body Medical Devices: LEFT ARM DIALYSIS FISTULA, L VAS CATH CHEST Cardiac Surgery: No Cholecystectomy: No Ear Surgery: No Endocrine Surgery: No Eye Surgery: No Genitourinary Surgery: No Gynecologic Surgery: No Insulin Pump: No Joint Replacement: No Neurologic Surgery: No Oral Surgery: No Pacemaker: No Thoracic Surgery: No Other Surgery: Yes (LUE AV GRAFT; X 6) Social History Alcohol Use: No Tobacco Use: No Substance Use: Yes ("everything" ) Allergies-Medications (Allergen,Severity, Reaction): Coded Allergies: *MDRO Multi-Drug Resistant Organism (Unverified Adverse Reaction, Unknown , 01/25/17) MRSA (genital) - 2004 MRSA PCR screen positive - 12/29/15, 09/09/16 MRSA (blood-09/08/16) Reported Meds & Prescriptions Reported Meds & Active Scripts Active Acetaminophen/Codeine Ramon 300-30 mg (Acetaminophen W/ Codeine) 1 Tab Tab 1 Tab PO Q4H PRN Renvela (Sevelamer Carbonate) 800 Mg Tab 1,600 Mg PO TID Xifaxan (Rifaximin) 550 Mg Tab 550 Mg PO BID Reported Ergocalciferol 50,000 Unit Cap 50,000 Units PO Q7D ON SUNDAYS Folic Acid 1 Mg Tablet 1 Mg PO DAILY Restoril (Temazepam) 15 Mg Cap 15 Mg PO HS PRN Fenofibrate 145 Mg Tab 145 Mg PO HS Aspirin EC (Aspirin) 81 Mg Tabdr 81 Mg PO MOWEFR @ HS Docusate Sodium 100 Mg Cap 100 Mg PO WEEKLY ON SUNDAYS Coreg (Carvedilol) 25 Mg Tab 25 Mg PO Q12HR Cardizem CD 24 HR (Diltiazem CD 24 HR) 360 Mg Caper 360 Mg PO DAILY Valtrex (Valacyclovir HCl) 1 Gm Tab 1 Gm PO DAILY Prolia Inj (Denosumab) 60 Mg/Ml Inj 60 Mg SQ Q180D Genvoya (Zzbjvtgbbhwu-Eangqegiqt-Szcyhnvaszjn-Tenofvir) [phone] Mg Tab 1 Tab PO DAILY Protonix (Pantoprazole Sodium) 40 Mg Tab 40 Mg PO DAILY Review of Systems Except as stated in HPI: all other systems reviewed are Neg Physical Exam Narrative GENERAL: Well-nourished, well-developed patient, in no acute distress SKIN: Focused skin assessment warm/dry. HEAD: Normocephalic. EYES: No scleral icterus. No injection or drainage. NECK: Supple, trachea midline. No JVD or lymphadenopathy. CARDIOVASCULAR: Regular rate and rhythm without murmurs, gallops, or rubs. RESPIRATORY: Breath sounds equal bilaterally. No accessory muscle use. MUSCULOSKELETAL: No cyanosis, or edema. Right upper extremity AV fistula in place with palpable thrill and audible bruit. It is not actively bleeding. BACK: Nontender without obvious deformity. No CVA tenderness. Data Data Last Documented VS Vital Signs Date Time Temp Pulse Resp B/P Pulse Ox O2 Delivery O2 Flow Rate FiO2 7/29/17 19:00 98.1 104 16 170/92 97 Room Air Orders Wound Care (05/14/17 19:14) MDM Medical Decision Making Medical Screen Exam Complete: Yes Emergency Medical Condition: Yes Medical Record Reviewed: Yes Differential Diagnosis AV fistula hemorrhage versus normal examination versus wound dehiscence versus puncture wound Narrative Course 66-year-old male presents to the [facility] department for dressing change of his AV fistula.Dressing is changed. Patient is encouraged to follow-up outpatient with his primary care provider. He agrees to return immediately with any acute worsening symptoms. Diagnosis Primary Impression: Change or removal of nonsurgical wound dressing Additional Impression: A-V fistula Referrals: Primary Care Physician Patient Instructions: General Instructions, Normal Exam (ED) Additional Instructions: Do not Remove the dressing Follow-up with your primary care provider Return immediately with any acute worsening of symptoms Med/Other Pt SpecificInfo: No Change to Meds Disposition: 01 DISCHARGE HOME Condition: Stable Martha Bella May 14, 2017 19:17
== END 2017-05-14 19:34 | disposition home or self-care (01) ==
LOC: NEPD 18:56
DX: Z48.00 Encounter for change or removal of nonsurgical wound dressing (principal); I77.0 Arteriovenous fistula, acquired; M13.88 Other specified arthritis, other site; Z21 Asymptomatic human immunodeficiency virus [HIV] infection status; I50.9 Heart failure, unspecified; J44.9 Chronic obstructive pulmonary disease, unspecified; E11.22 Type 2 diabetes mellitus with diabetic chronic kidney disease; I12.0 Hypertensive chronic kidney disease with stage 5 chronic kidney disease or end stage renal disease; N18.6 End stage renal disease
CPT/HCPCS: 99281